=== PATIENT | female | born 1930 | race Two or more races ===

== ENCOUNTER 2018-04-07 17:05 | Inpatient (IN) | payer MEDICARE, MEDICAID ==
[2018-04-07 17:48] LABS: % BASOPHILS 0.4 % (0.0-2.0); % EOSINOPHILS 0.4 % (0.0-5.0); % LYMPHOCYTES 13.5 % (20.0-50.0); % MONOCYTES 8.9 % (2.0-10.0); % NEUTROPHILS 76.8 % (40.0-80.0); HEMATOCRIT 36.2 % (41.0-60); HEMOGLOBIN 11.9 gm/dL (12-16); LYMPHOCYTE ABSOLUTE 0.8 Th/cmm (1.5-3.0); MEAN CELL VOLUME 94.5 fl (81-100); MEAN CORPUSCULAR HEMOGLOBIN 31.1 pg (27.0-31.0); MEAN CORPUSCULAR HGB CONC 32.9 pg (28.0-36.0); MEAN PLATELET VOLUME 7.8 fl; MONOCYTE ABSOLUTE 0.5 Th/cmm (0.3-1.0); NEUTROPHILE ABSOLUTE 4.3 Th/cmm (1.8-8.0); PLATELET COUNT 174 Th/cmm (150-400); RED BLOOD COUNT 3.83 Mil/cmm (3.80-5.20); RED CELL DISTRIBUTION WIDTH 14.1 % (11.5-20.0); WHITE BLOOD COUNT 5.6 Th/cmm (4.8-10.8)
[2018-04-07] MEDS ORDERED: Sodium Chloride 0.45% 500 ML IV ONE (17:57)
[2018-04-07 18:03] LABS: ALB/GLOB RATIO 0.9 (1.0-1.8); ALBUMIN 3.1 gm/dL (3.7-5.3); ALKALINE PHOSPHATASE 47 U/L (34-104); BILIRUBIN,TOTAL 0.6 mg/dL (0.3-1.0); BUN - UREA NITROGEN 21 mg/dL (7-25); CALCIUM SERUM 8.9 mg/dL (8.6-10.3); CARBON DIOXIDE 25.7 mEq/L (21.0-31.0); CHLORIDE 102 mEq/L (98-107); CREATININE - SERUM 0.7 mg/dL (0.6-1.2); GLUCOSE 177 mg/dL (70-105); POTASSIUM SERUM 3.7 mEq/L (3.5-5.1); SGOT 86 U/L (13-39); SGPT/ALT 50 U/L (7-52); SODIUM SERUM 136 mEq/L (136-145); TOTAL PROTEIN,SERUM 6.5 gm/dL (6.0-8.3)
[2018-04-07 18:05] LABS: INR 1.09 (0.5-1.4); PROTHROMBIN TIME (TEST) 11.4 SECONDS (9.5-11.5)
--- NOTE | 2018-04-07 18:06 | ED Physician Chart ---
ED Chief Complaint/HPI - Patient Information Date Seen:: 04/07/18 Time Seen:: 17:34 Chief Complaint:: WEAKNESS History of Present Illness:: THIS IS AN 87 YO FEMALE WHO WAS BIB EMS FROM HOME WITH A HISTORY OF WEAKNESS, POOR INTAKE AND CONFUSING. SHE HAS HAD FEVER AND NOT ABLE TO WALK LATELY. SHE HAS A HISTORY OF DIABETES, PERIANAL CANCER, OVARY CA AND HYPERTENSION. Allergies:: Allergies Allergy/AdvReac Type Severity Reaction Status Date / Time No Known Allergies Allergy Verified 04/07/18 17:48 Vitals:: Vital Signs - 8 hr 04/07/18 17:49 Temp 99.8 F HR 89 RR 22 BP 135/58 O2 Sat % 98 Historian:: Family Member Review:: Nurse's Note Reviewed ED Review of Systems - Review of Systems General/Constitutional: Other (THIS PATIENT IS UNABLE TO GIVE A REVIEW OF SYSTEMS.) ED Past Medical History - Past Medical History Obtainable: Yes Past Medical History: HTN, DM, Dementia, Other (OVARIAN CA, DAVIDE-ANAL CA.) Family History: None Social History: Non Smoker, No Alcohol, No Drug Use, Surgical History: other (OVARIAN SURGERY) ED Physical Exam - Physical Examination General/Constitutional: Awake, Well-developed, well-nourished, Alert, No distress, GCS 15, Non-toxic appearing, Ambulatory Other Gen/Cons comments:: THE PATIENT IS CONFUSED AND TALKING OUT OF HER HEAD CONSTANTLY. Head: Atraumatic Eyes: Lids, conjuctiva normal, PERRL, EOMI Skin: Nl inspection, No rash, No skin lesions, No ecchymosis, Well hydrated, No lymphadenopathy ENMT: External ears, nose nl, Nasal exam nl, Lips, teeth, gums nl Neck: Nontender, Full ROM w/o pain, No JVD, No nuchal rigidity, No bruit, No mass, No stridor Respiratory: Nl effort/Exclusion, Clear to Auscultation, No Wheeze/Rhonchi/Rales Cardio Vascular: RRR, No murmur, gallop, rubs, NL S1 S2 GI: No tenderness/rebounding/guarding, No organomegaly, No hernia (VENTRAL HERNIA NOTED), Normal BS's, Nondistended, No mass/bruits, No McBurney tenderness : No CVA tenderness Extremities: No tenderness or effusion, Full ROM, normal strength in all extremities (MUSCLE WASTING OF ALL FOUR EXTREMITIES.), No edema, Normal digits & nails Neuro/Psych: Alert/oriented, DTR's symmetric, Normal sensory exam, Normal motor strength, Judgement/insight normal, Mood normal, Normal gait, No focal deficits Misc: Normal back, No paraspinal tenderness ED Labs/Radiology/EKG Results - Lab Results Results: Laboratory Tests 04/07/18 17:39 WBC 5.6 RBC 3.83 Hgb 11.9 L Hct 36.2 L MCV 94.5 MCH 31.1 H MCHC Differential 32.9 RDW 14.1 Plt Count 174 MPV 7.8 Neutrophils % 76.8 Lymphocytes % 13.5 L Monocytes % 8.9 Eosinophils % 0.4 Basophils % 0.4 - Radiology Results Results: CHEST X-RAY = NAD - EKG Interpretations EKG Time:: 17:27 Rate & Rhythm: 77, SINUS Sumrall: LEFT AXIS Intervals: NO ECTOPY ED Assessment - Assessment General Assessment: MENTAL DISORDER FOR PEDRO PSYCH ED Septic Shock - . Is Septic Shock (SBP<90, OR Lactate>4 mmol\L) present?: No - <6hrs of presentation: Vital Signs: Vital Signs - 8 hr 04/07/18 17:49 Temp 99.8 F HR 89 RR 22 BP 135/58 O2 Sat % 98 ED Reassessment (Disposition) - Reassessment Reassessment Condition:: Unchanged - Diagnosis Diagnosis:: PSYCHOSIS HYPERTENSION - Patient Disposition Discharge/Transfer:: Acute Care w/in this hosp Admitting Medical Physician:: Sara Bhatia Admitting Psych Physician:: Melissa Santiago Condition at Disposition:: Unchanged ED Discharge Plan - Patient Disposition Admit/Discharge/Transfer: Acute Care w/in this hosp Condition at Disposition: Unchanged
[2018-04-07 20:17] VITALS: BP 148/61
[2018-04-07] MEDS ORDERED: Maalox 30 mL Cup PO PRN (20:20)
[2018-04-07] MEDS ORDERED: Magnesium Hydroxide (MOM) 30 mL UDC PO PRN (20:20)
[2018-04-07] MEDS ORDERED: Hydrocodone/APAP 5mg/325mg Tab PO PRN (20:22)
[2018-04-07] MEDS ORDERED: Non-Formulary Item 1 EA (Donepezil Hcl [Donepezil Hcl Odt] 5 MG) PO SCH (21:00)
[2018-04-07] MEDS: Dicyclomine 10 mg Cap PO SCH (21:30)
[2018-04-08] MEDS: Pantoprazole 40 mg EC Tab PO SCH (06:43)
--- NOTE | 2018-04-08 07:46 | Diagnostic Imaging Report ---
CHEST X-RAY: AP view INDICATION: pain COMPARISON: None FINDINGS: Suboptimal lung volumes are seen with increased left basal lung markings. No focal consolidation or effusions. Cardiomegaly is noted with atherosclerosis. Degenerative changes of the spine are noted. IMPRESSION: Suboptimal lung volumes with increased left basal lung markings which may be due to subsegmental atelectasis or scarring. No focal consolidation identified. Cardiomegaly and atherosclerotic vascular disease.
[2018-04-08] MEDS ORDERED: FLUTICASONE PROPIONATE 50 MCG IH SCH (09:00)
[2018-04-08] MEDS: HYDROCORTISONE 2.5% RC SCH (10:27)
[2018-04-08] MEDS: Dicyclomine 10 mg Cap PO SCH ×3 (10:27→21:05)
[2018-04-08] MEDS: Calcium Carb/Vit D 500 mg/200 U Tab PO SCH (10:27)
[2018-04-08] MEDS: Atorvastatin Calcium 10 MG TAB PO SCH (10:27)
[2018-04-08] MEDS: Multivitamin Tab PO SCH (10:28)
[2018-04-08] MEDS: VERAPAMIL HCL 180 MG PO SCH (10:29)
--- NOTE | 2018-04-08 20:39 | History and Physical ---
History of Present Illness - HPI Chief Complaint: CONFUSION HPI: THIS IS AN 87 YO FEMALE FROM HOME WITH A HISTORY OF WEAKNESS, POOR INTAKE AND INCREASE CONFUSION. Vital Signs: Last Vital Signs Temp 97.6 F 04/08/18 20:14 Pulse 76 04/08/18 20:14 Resp 19 04/08/18 20:14 BP 129/49 04/08/18 20:14 Pulse Ox 97 04/08/18 20:14 Past Medical History Other History: DIABETES, PERIANAL CANCER, OVARY CA AND HYPERTENSION Family Medical History - Family Member mother History Unknown: Yes Ethnicity: Unknown Living Status: Unknown Social History Smoke: No Alcohol: None Drugs: None Lives: With Family - Medications Home Medications: Home Medication Medication Instructions Recorded Type Alendronate Sodium 70 mg PO Q7D 04/07/18 History Atorvastatin Calcium [Lipitor] 20 mg PO DAILY 04/07/18 History Calcium Carbonate/Vitamin D3 1 each PO DAILY 04/07/18 History [[place] 500+D Tablet] Cyanocobalamin (Vitamin B-12) 1,000 mcg SL DAILY 04/07/18 History [Vitamin B-12] Dicyclomine [Bentyl 10 Mg Cap*] 10 mg PO TID 04/07/18 History Docusate Sodium [Dok] 500 mg PO DAILY 04/07/18 History Donepezil HCl [Donepezil HCl Odt] 5 mg PO HS 04/07/18 History Fluticasone Propionate [Flovent 50 mcg IH DAILY 04/07/18 History Diskus] Glimepiride 1 mg PO DAILY 04/07/18 History Hydrocodone/APAP 5mg/325mg [Penrose 1 tab PO QID PRN 04/07/18 History 5mg/325mg] Hydrocortisone 2.5% Rectal Crm 1 appl RC DAILY 04/07/18 History [Proctozone-HC] Ibuprofen 400 mg PO QID 04/07/18 History Ketotifen 0.025% Ophth Soln 1 drop EACH EYE DAILY 04/07/18 History [Zaditor 0.025% Ophth Soln] Loperamide HCl [Imodium A-D] 2 mg PO TID PRN 04/07/18 History Loratadine 10 mg PO DAILY 04/07/18 History Meclizine [Antivert*] 25 mg PO PRN PRN 04/07/18 History Memantine HCl [Namenda Xr] 21 mg PO DAILY 04/07/18 History Omeprazole 20 mg PO DAILY 04/07/18 History Ondansetron [Zofran ODT] 4 mg PO PRN PRN 04/07/18 History Oxybutynin Chloride [Ditropan*] 5 mg PO DAILY 04/07/18 History QUEtiapine Fumarate [SEROquel] 25 mg PO DAILY 04/07/18 History Sertraline [Zoloft] 25 mg PO DAILY 04/07/18 History Tramadol HCl [Ultram] 50 mg PO BID 04/07/18 History Verapamil HCl [Verapamil ER] 180 mg PO DAILY 04/07/18 History - Allergies Allergies/Adverse Reactions: Allergies Allergy/AdvReac Type Severity Reaction Status Date / Time No Known Allergies Allergy Verified 04/07/18 17:48 Review of Systems - Review of Systems Constitutional: Report: Weakness Eyes: Report: No Significant ENT: Report: No Significant Respiratory: Report: No Significant Cardiovascular: Report: No Significant Neurological: Report: No Significant Physical Exam - Physical Exam HEENT: Report: Ears Nose Throat within normal limits Neck: Report: Within normal limits Cardiovascular Systems: Report: +s1/s2 noted, Regular, Rate and Rhythm Respiratory: Report: Breath Sounds are within normal limits Abdomen: Report: Non-tender to palpation Skin: Report: Warm, Dry - Lab Results All Lab Results last 24 hours: Microbiology 04/07/18 17:40 - Preliminary Blood NO GROWTH AFTER 24 HOURS 04/07/18 17:40 - Preliminary Blood NO GROWTH AFTER 24 HOURS - Assessment Assessment: Current Active Problems Problem Status Onset INCREASED WEAKNESS AND CONFUSION Acute DIABETES HX OF PERIANAL CANCER HX OF OVARY CA HYPERTENSION. - Plan Plan: FALL PRECAUTION CONTINUE THE REST OF THE ORDERS
--- NOTE | 2018-04-09 00:54 | Psychosocial Evaluation ---
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 The patient is taking Aricept, Namenda, Zoloft. PAST MEDICAL HISTORY: The patient has history of what seems to be hypertension and diabetes mellitus. She also has bilateral edema of the leg. SOCIAL HISTORY: The patient lives with her family. No known alcohol or drug use. No other information known at this time. ALLERGIES: No known allergies. MENTAL STATUS EXAMINATION: The patient appears her stated age. Anxious. Sad affect. In a depressed mood. Disorganized thoughts. Taking off her clothes. Thought processes are with poverty of speech. The patient is confused, unable to assess her orientation or memory because of her confusion and she seems to be paranoid. 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 TREATMENT PLAN: We will monitor the patient's behavior and condition closely. Also, we will increase Seroquel to 25 mg twice a day. We will monitor behavior and work on discharge plans. ESTIMATED LENGTH OF STAY: 5-7 days. THE PATIENT'S STRENGTHS AND WEAKNESSES: The patient's strengths is she has supportive family. Weakness is her confusion. AFTER DISCHARGE PLAN: Outpatient treatment and followup will continue as an outpatient. CRITERIA FOR DISCHARGE: Stabilize psychotropic medications and better impulse control. JOB# [id number]
--- NOTE | 2018-04-09 03:23 | Psychosocial Evaluation ---
DATE OF SERVICE: 04/08/2018 PSYCHIATRIC INITIAL EVALUATION AND MENTAL STATUS EXAM AGE: 87. SEX: Female. PHYSICIAN: Dr. Santiago. CHIEF COMPLAINT: [id number] hold for grave disability. HISTORY OF PRESENT ILLNESS: The patient is an 87-year-old female with history of what seems to be dementia with psychosis as well as depression. The patient was brought into the hospital by her family because of increased agitation and inability to care for her. The patient has been anxious and angry and in irritable mood. She also has not been able to follow any of her judgment directions. In the Emergency Room, the patient was irritable and she was agitated and for redirection and the patient was given Ativan to calm her down. Chart reviewed and patient interviewed and discussed the patient's condition with the staff and I talked to the patient in Persian language which I speak. The patient is originally from [place]. She has been rambling and has been confused and she was trying to answer my questions, but incoherently. She recognized her name, but she did not know how many children she has or where she is at. She kept to take off her hospital gown while I was talking to her. She was restless and severely confused. PAST PSYCHIATRIC HISTORY: The patient has DICTATION ENDS HERE JOB# [id number]
[2018-04-09] MEDS: Pantoprazole 40 mg EC Tab PO SCH (06:36)
--- NOTE | 2018-04-09 09:31 | General Progress Note ---
Subjective - Review of Systems Events since last encounter: patient awake alert in no distress Objective - Results Result Diagrams: 04/07/18 17:39 04/07/18 17:39 Recent Labs: Laboratory Last Values WBC 5.6 Th/cmm (4.8-10.8) 04/07/18 17:39 RBC 3.83 Mil/cmm (3.80-5.20) 04/07/18 17:39 Hgb 11.9 gm/dL (12-16) L 04/07/18 17:39 Hct 36.2 % (41.0-60) L 04/07/18 17:39 MCV 94.5 fl (81-100) 04/07/18 17:39 MCH 31.1 pg (27.0-31.0) H 04/07/18 17:39 MCHC Differential 32.9 pg (28.0-36.0) 04/07/18 17:39 RDW 14.1 % (11.5-20.0) 04/07/18 17:39 Plt Count 174 Th/cmm (150-400) 04/07/18 17:39 MPV 7.8 fl 04/07/18 17:39 Neutrophils % 76.8 % (40.0-80.0) 04/07/18 17:39 Lymphocytes % 13.5 % (20.0-50.0) L 04/07/18 17:39 Monocytes % 8.9 % (2.0-10.0) 04/07/18 17:39 Eosinophils % 0.4 % (0.0-5.0) 04/07/18 17:39 Basophils % 0.4 % (0.0-2.0) 04/07/18 17:39 PT 11.4 SECONDS (9.5-11.5) 04/07/18 17:39 INR 1.09 (0.5-1.4) 04/07/18 17:39 PTT (Actin FS) 29.9 SECONDS (26.0-38.0) 04/07/18 17:39 Sodium 136 mEq/L (136-145) 04/07/18 17:39 Potassium 3.7 mEq/L (3.5-5.1) 04/07/18 17:39 Chloride 102 mEq/L (98-107) 04/07/18 17:39 Carbon Dioxide 25.7 mEq/L (21.0-31.0) 04/07/18 17:39 Anion Gap 12.0 (7.0-16.0) 04/07/18 17:39 BUN 21 mg/dL (7-25) 04/07/18 17:39 Creatinine 0.7 mg/dL (0.6-1.2) 04/07/18 17:39 Est GFR ( Amer) TNP 04/07/18 17:39 Est GFR (Non-Af Amer) TNP 04/07/18 17:39 BUN/Creatinine Ratio 30.0 04/07/18 17:39 Glucose 177 mg/dL (70-105) H 04/07/18 17:39 Calcium 8.9 mg/dL (8.6-10.3) 04/07/18 17:39 Total Bilirubin 0.6 mg/dL (0.3-1.0) 04/07/18 17:39 AST 86 U/L (13-39) H 04/07/18 17:39 ALT 50 U/L (7-52) 04/07/18 17:39 Alkaline Phosphatase 47 U/L (34-104) 04/07/18 17:39 Troponin I 0.02 ng/mL (0.01-0.05) 04/07/18 17:39 Total Protein 6.5 gm/dL (6.0-8.3) 04/07/18 17:39 Albumin 3.1 gm/dL (3.7-5.3) L 04/07/18 17:39 Globulin 3.4 gm/dL 04/07/18 17:39 Albumin/Globulin Ratio 0.9 (1.0-1.8) L 04/07/18 17:39 TSH 1.58 uIU/ml (0.34-5.60) 04/07/18 17:39 - Physical Exam Vitals and I&O: Vital Signs Temp 96.3 F 04/09/18 05:33 Pulse 74 04/09/18 05:33 Resp 18 04/09/18 05:33 BP 141/83 04/09/18 05:33 Pulse Ox 99 04/09/18 05:33 Intake & Output 04/08/18 04/09/18 04/09/18 18:59 06:59 18:59 Intake Total 300 Balance 300 Intake: Oral 300 Other: # Voids 1 # Bowel Movements 1 Active Medications: Current Medications Acetaminophen (Tylenol) 650 mg PO Q4H PRN PRN Reason: Mild Pain / Temp above 100 Stop: 06/06/18 20:19 Acetaminophen/Hydrocodone Bitart (Minerva 5mg/325mg) 1 tab PO QID PRN PRN Reason: Pain (Severe) Stop: 06/06/18 20:21 Al Hydrox/Mg Hydrox/Simethicone (Maalox) 30 ml PO Q4H PRN PRN Reason: GI DISTRESS Stop: 06/06/18 20:19 Alendronate Sodium (Fosamax) 70 mg PO Q7D [facility] Stop: 06/10/18 06:29 Atorvastatin Calcium (Lipitor) 20 mg PO DAILY JEANETTE Stop: 06/07/18 08:59 Last Admin: 04/08/18 10:27 Dose: Not Given Calcium/Vitamin D (Oscal W/Vitamin D) 1 tab PO DAILY JEANETTE Stop: 06/07/18 08:59 Last Admin: 04/08/18 10:27 Dose: Not Given Cyanocobalamin (Vitamin B12) 1,000 mcg PO DAILY JEANETTE Stop: 06/07/18 08:59 Last Admin: 04/08/18 10:27 Dose: Not Given Dicyclomine HCl (Bentyl) 10 mg PO TID JEAENTTE Stop: 06/06/18 21:59 Last Admin: 04/08/18 21:05 Dose: 10 mg Docusate Sodium (Colace) 500 mg PO DAILY JEANETTE Stop: 06/07/18 08:59 Last Admin: 04/08/18 10:27 Dose: Not Given Donepezil HCl (Aricept) 5 mg PO HS [facility] Stop: 06/07/18 20:59 Last Admin: 04/08/18 21:05 Dose: 5 mg Glimepiride (Amaryl) 1 mg PO QDAC JEANETTE Stop: 06/07/18 07:29 Last Admin: 04/09/18 06:36 Dose: Not Given Hydrocortisone (Proctozone-Hc) 1 appl RC DAILY [facility] Stop: 06/07/18 08:59 Last Admin: 04/08/18 10:27 Dose: Not Given Ibuprofen (Motrin) 400 mg PO QID JEANETTE Stop: 06/06/18 20:59 Last Admin: 04/08/18 21:05 Dose: 400 mg Ketotifen Fumarate (Zaditor 0.025% Ophth Soln) 1 drop EACH EYE DAILY [facility] Stop: 06/07/18 08:59 Last Admin: 04/08/18 10:27 Dose: Not Given Loperamide HCl (Imodium) 2 mg PO TID PRN PRN Reason: Diarrhea Stop: 06/06/18 20:21 Loratadine (Claritin) 10 mg PO DAILY [facility] Stop: 06/07/18 08:59 Last Admin: 04/08/18 10:28 Dose: Not Given Lorazepam (Ativan) 0.5 mg PO Q4H PRN; Protocol PRN Reason: Anxiety/agitation Stop: 06/06/18 20:19 Magnesium Hydroxide (Milk Of Magnesia) 30 ml PO HS PRN PRN Reason: Constipation Meclizine HCl (Antivert) 25 mg PO Q8H PRN PRN Reason: Dizziness Stop: 06/06/18 20:21 Memantine (Namenda) 5 mg PO TID [facility] Stop: 06/07/18 08:59 Last Admin: 04/08/18 21:05 Dose: 5 mg Miscellaneous (Fluticasone Propionate [Flovent Diskus]) 50 mcg IH DAILY [facility] Stop: 06/07/18 08:59 Multivitamins/Vitamin C (Theragran) 1 tab PO DAILY [facility] Stop: 06/07/18 08:59 Last Admin: 04/08/18 10:28 Dose: Not Given Ondansetron HCl (Zofran Odt) 4 mg PO Q8H PRN PRN Reason: Nausea / Vomiting Stop: 06/06/18 20:21 Oxybutynin Chloride (Ditropan) 5 mg PO DAILY [facility] Stop: 06/07/18 08:59 Last Admin: 04/08/18 10:28 Dose: Not Given Pantoprazole Sodium (Protonix) 40 mg PO QDAC [facility] Stop: 06/07/18 07:29 Last Admin: 04/09/18 06:36 Dose: Not Given Quetiapine Fumarate (Seroquel) 25 mg PO TID [facility]; Protocol Stop: 06/08/18 08:59 Sertraline HCl (Zoloft) 25 mg PO DAILY [facility]; Protocol Stop: 06/07/18 08:59 Last Admin: 04/08/18 10:28 Dose: Not Given Tramadol HCl (Ultram) 50 mg PO BID JEANETTE Stop: 06/07/18 08:59 Last Admin: 04/08/18 16:29 Dose: Not Given Verapamil HCl (Isoptin Sr) 180 mg PO DAILY JEANETTE Stop: 06/07/18 08:59 Last Admin: 04/08/18 10:29 Dose: Not Given Zolpidem Tartrate (Ambien) 5 mg PO HS PRN PRN Reason: Insomnia Stop: 06/06/18 20:19 Assessment/Plan - Problem List Patient Problems: All Active Problems INCREASED WEAKNESS AND CONFUSION (Acute) - Assessment Assessment: Current Active Problems Problem Status Onset INCREASED WEAKNESS AND CONFUSION Acute DIABETES HX OF PERIANAL CANCER HX OF OVARY CA HYPERTENSION. - Plan Plan: FALL PRECAUTION CONTINUE THE REST OF THE ORDERS Nutritional Asmnt/Malnutr-PDOC - Dietary Evaluation Malnutrition Findings (Please click <Entered> for more info): Nutritional Asmnt/Malnutrition Start: 04/08/18 15: 11 Text: Status: Complete Freq: Protocol: Document 04/08/18 15:11 [email or web address] (Rec: 04/08/18 15:28 [email or web address] [id number]) Nutritional Asmnt/Malnutrition Patient General Information Nutritional Screening High Risk Diagnosis psychosis Pertinent Medical Hx/Surgical Hx DM, perianal cancer, ovary CA and HTN Subjective Information Pt seen lying in bed at time of visit, very confused. Per REGISTRATION SPECIALIST, Pt consumed 50% of breakfast this morning. Rex Sanabria noted. Current Diet Order/ Nutrition Support CCHO-60gm Pertinent Medications oscal w/vit D, Vit B12, colace , theragran, protonix, seroquel Pertinent Labs 7/2 glucose 177, AST 86 Nutritional Hx/Data Height 1.63 m Height (Calculated Centimeters) 162.6 Current Weight (lbs) 83.915 kg Weight (Calculated Kilograms) 83.9 Weight (Calculated Grams) 90772.6 [place] Body Weight 120 Body Mass Index (BMI) 31.7 Weight Status Obese GI Symptoms GI Symptoms None Last BM not indicated Difficult in: None Skin Integrity/Comment: intact Current %PO Fair (50-74%) Estimated Nutritional Goals BEE in Kcals: Adj wt of IBW Calories/Kcals/Kg 25-30 Kcals Calculated [id number] Protein: Adj wt of IBW Protein g/k-1.2 Protein Calculated 62-74 Fluid: ml 1550-1860ml (1ml/kcal) Nutritional Problem 1. Problem Problem altered nutrition related labs Etiology hx of DM Signs/Symptoms: glucose 177 Malnutrition Alert Is there a minimum of two criteria No selected? Query Text:Check all the applicable criteria. A minimum of two criteria are recommended for diagnosis of either severe or non-severe malnutrition. Malnutrition Related to Morbid Obesity Malnutrition related to morbid obesity No Intervention/Recommendation Comments 1. Continue with CCHO-60gm diet as ordered. Assist pt with meals as needed. 2. Monitor PO intake, wt, labs and skin integrity 3. F/U as moderate risk in 3-5 days, 04/11-04/13 Expected Outcomes/Goals Expected Outcomes/Goals 1. PO intake to meet at least 75% of nutritional needs. 2. Wt stability, skin to remain intact, labs to approach WNL.
[2018-04-09] MEDS: HYDROCORTISONE 2.5% RC SCH (10:52)
[2018-04-09] MEDS: Dicyclomine 10 mg Cap PO SCH ×3 (10:53→20:05)
[2018-04-09] MEDS: Calcium Carb/Vit D 500 mg/200 U Tab PO SCH (10:53)
[2018-04-09] MEDS: Atorvastatin Calcium 10 MG TAB PO SCH (10:53)
[2018-04-09] MEDS: Multivitamin Tab PO SCH (11:09)
[2018-04-09] MEDS: VERAPAMIL HCL 180 MG PO SCH (11:11)
[2018-04-09 15:17] LABS: URINE MICROSCOPIC INDICATED? YES; URINE SOURCE CATH
[2018-04-09 15:18] LABS: URINE BILIRUBIN NEGATIVE (NEGATIVE); URINE BLOOD MODERATE (NEGATIVE); URINE GLUCOSE (UA) NEGATIVE (NEGATIVE); URINE KETONE NEGATIVE (NEGATIVE); URINE LEUKOCYTE ESTERASE LARGE (NEGATIVE); URINE NITRATE POSITIVE (NEGATIVE); URINE PROTEIN 100 mg/dL (NEGATIVE)
[2018-04-09 15:20] LABS: URINE COLOR YELLOW
[2018-04-09 15:21] LABS: URINE CLARITY CLOUDY (CLEAR)
[2018-04-09 15:24] LABS: URINE BACTERIA MANY /hpf (NONE SEEN); URINE EPITHELIAL CELLS MODERATE /lpf (FEW); URINE WBC >100 /hpf (0-5)
--- NOTE | 2018-04-09 18:10 | History & Physical ---
ADMIT DATE: 04/07/2018 HISTORY OF PRESENT ILLNESS: The patient is an 87-year-old female who came from home with history of severe weakness, poor intake and increasing confusion. The patient is also known to have history of diabetes, perianal cancer and ovarian CA and hypertension. The patient was seen in the Emergency Room and the patient was evaluated and patient was admitted for the confusion. PHYSICAL EXAMINATION: HEAD: Normal. ENT: Normal. NECK: Supple, nontender. LUNGS: Clear. CARDIOVASCULAR SYSTEM: S1, S2 heard. ABDOMEN: Soft. Bowel sounds are heard. CENTRAL NERVOUS SYSTEM: Decreased sensorium. DIAGNOSES: Acute psychosis, diabetes, history of perianal cancer, history of ovarian CA, history of hypertension was made. PLAN: I did speak with the ER doctor, Dr. Marlon Miguel and the patient was admitted for the above problems. I will follow along with Dr. Santiago. JOB# [id number]
--- NOTE | 2018-04-10 01:02 | Progress Notes ---
DATE: SUBJECTIVE: Chart reviewed and the patient interviewed. Also discussed the patient's condition with the staff and reviewed records and labs. The patient is still confused. The patient also is still trying to take off her hospital gown. She also is still anxious and depressed and easily agitated. She also still unable to follow directions or to carry on coherent conversation. On the other hand, the patient started to take Seroquel with no side effect of Seroquel. ASSESSMENT: The patient is still confused and agitated. TREATMENT PLAN: Continue to monitor her behavior and her condition closely. Also, we will increase Seroquel to 25 mg 3 times a day. Also, continue to work on her poor impulse control and her confusion and continue to follow up. JOB# [id number]
[2018-04-10] MEDS: Pantoprazole 40 mg EC Tab PO SCH (06:43)
[2018-04-10] MEDS ORDERED: Probiotic Screen MC PRN (08:15)
[2018-04-10] MEDS: Lactobacillus Rhamnosus GG 15 Billion CFU CAP.SPRINK PO SCH (08:55)
[2018-04-10] MEDS: Dicyclomine 10 mg Cap PO SCH ×3 (08:57→20:48)
[2018-04-10] MEDS: Multivitamin Tab PO SCH (08:58)
[2018-04-10] MEDS: HYDROCORTISONE 2.5% RC SCH (09:00)
[2018-04-10] MEDS: Calcium Carb/Vit D 500 mg/200 U Tab PO SCH (09:01)
[2018-04-10] MEDS: Atorvastatin Calcium 10 MG TAB PO SCH (09:01)
[2018-04-10] MEDS: VERAPAMIL HCL 180 MG PO SCH (10:54)
--- NOTE | 2018-04-10 16:47 | General Progress Note ---
Subjective - Review of Systems Subjective: pt. has increasing muscle weakness, and is confused Objective - Results Result Diagrams: 04/07/18 17:39 04/07/18 17:39 Recent Labs: Laboratory Last Values WBC 5.6 Th/cmm (4.8-10.8) 04/07/18 17:39 RBC 3.83 Mil/cmm (3.80-5.20) 04/07/18 17:39 Hgb 11.9 gm/dL (12-16) L 04/07/18 17:39 Hct 36.2 % (41.0-60) L 04/07/18 17:39 MCV 94.5 fl (81-100) 04/07/18 17:39 MCH 31.1 pg (27.0-31.0) H 04/07/18 17:39 MCHC Differential 32.9 pg (28.0-36.0) 04/07/18 17:39 RDW 14.1 % (11.5-20.0) 04/07/18 17:39 Plt Count 174 Th/cmm (150-400) 04/07/18 17:39 MPV 7.8 fl 04/07/18 17:39 Neutrophils % 76.8 % (40.0-80.0) 04/07/18 17:39 Lymphocytes % 13.5 % (20.0-50.0) L 04/07/18 17:39 Monocytes % 8.9 % (2.0-10.0) 04/07/18 17:39 Eosinophils % 0.4 % (0.0-5.0) 04/07/18 17:39 Basophils % 0.4 % (0.0-2.0) 04/07/18 17:39 PT 11.4 SECONDS (9.5-11.5) 04/07/18 17:39 INR 1.09 (0.5-1.4) 04/07/18 17:39 PTT (Actin FS) 29.9 SECONDS (26.0-38.0) 04/07/18 17:39 Sodium 136 mEq/L (136-145) 04/07/18 17:39 Potassium 3.7 mEq/L (3.5-5.1) 04/07/18 17:39 Chloride 102 mEq/L (98-107) 04/07/18 17:39 Carbon Dioxide 25.7 mEq/L (21.0-31.0) 04/07/18 17:39 Anion Gap 12.0 (7.0-16.0) 04/07/18 17:39 BUN 21 mg/dL (7-25) 04/07/18 17:39 Creatinine 0.7 mg/dL (0.6-1.2) 04/07/18 17:39 Est GFR ( Amer) TNP 04/07/18 17:39 Est GFR (Non-Af Amer) TNP 04/07/18 17:39 BUN/Creatinine Ratio 30.0 04/07/18 17:39 Glucose 177 mg/dL (70-105) H 04/07/18 17:39 Calcium 8.9 mg/dL (8.6-10.3) 04/07/18 17:39 Total Bilirubin 0.6 mg/dL (0.3-1.0) 04/07/18 17:39 AST 86 U/L (13-39) H 04/07/18 17:39 ALT 50 U/L (7-52) 04/07/18 17:39 Alkaline Phosphatase 47 U/L (34-104) 04/07/18 17:39 Troponin I 0.02 ng/mL (0.01-0.05) 04/07/18 17:39 Total Protein 6.5 gm/dL (6.0-8.3) 04/07/18 17:39 Albumin 3.1 gm/dL (3.7-5.3) L 04/07/18 17:39 Globulin 3.4 gm/dL 04/07/18 17:39 Albumin/Globulin Ratio 0.9 (1.0-1.8) L 04/07/18 17:39 TSH 1.58 uIU/ml (0.34-5.60) 04/07/18 17:39 Urine Source CATH 04/09/18 14:50 Urine Color YELLOW 04/09/18 14:50 Urine Clarity CLOUDY (CLEAR) H 04/09/18 14:50 Urine pH 6.0 (4.6 - 8.0) 04/09/18 14:50 Ur Specific [place] 1.015 (1.005-1.030) 04/09/18 14:50 Urine Protein 100 mg/dL (NEGATIVE) H 04/09/18 14:50 Urine Glucose (UA) NEGATIVE mg/dL (NEGATIVE) 04/09/18 14:50 Urine Ketones NEGATIVE mg/dL (NEGATIVE) 04/09/18 14:50 Urine Blood MODERATE (NEGATIVE) H 04/09/18 14:50 Urine Nitrate POSITIVE (NEGATIVE) H 04/09/18 14:50 Urine Bilirubin NEGATIVE (NEGATIVE) 04/09/18 14:50 Urine Urobilinogen 1.0 E.U./dL (0.2 - 1.0) 04/09/18 14:50 Ur Leukocyte Esterase LARGE (NEGATIVE) H 04/09/18 14:50 Urine RBC 5-10 /hpf (0-5) H 04/09/18 14:50 Urine WBC >100 /hpf (0-5) H 04/09/18 14:50 Ur Epithelial Cells MODERATE /lpf (FEW) 04/09/18 14:50 Urine Bacteria MANY /hpf (NONE SEEN) H 04/09/18 14:50 - Physical Exam Vitals and I&O: Vital Signs Temp 96.2 F 04/10/18 14:59 Pulse 88 04/10/18 14:59 Resp 18 04/10/18 14:59 BP 124/71 04/10/18 14:59 Pulse Ox 98 04/10/18 14:59 Intake & Output 04/09/18 04/10/18 04/10/18 18:59 06:59 18:59 Intake Total 120 Balance 120 Intake: Oral 120 Other: # Voids 2 # Bowel Movements 1 Active Medications: Current Medications Acetaminophen (Tylenol) 650 mg PO Q4H PRN PRN Reason: Mild Pain / Temp above 100 Stop: 06/06/18 20:19 Acetaminophen/Hydrocodone Bitart ([place] 5mg/325mg) 1 tab PO QID PRN PRN Reason: Pain (Severe) Stop: 06/06/18 20:21 Al Hydrox/Mg Hydrox/Simethicone (Maalox) 30 ml PO Q4H PRN PRN Reason: GI DISTRESS Stop: 06/06/18 20:19 Alendronate Sodium (Fosamax) 70 mg PO Q7D JEANETTE Stop: 06/10/18 06:29 Atorvastatin Calcium (Lipitor) 20 mg PO DAILY JEANETTE Stop: 06/07/18 08:59 Last Admin: 04/10/18 09:01 Dose: 20 mg Calcium/Vitamin D (Oscal W/Vitamin D) 1 tab PO DAILY JEANETTE Stop: 06/07/18 08:59 Last Admin: 04/10/18 09:01 Dose: 1 tab Cyanocobalamin (Vitamin B12) 1,000 mcg PO DAILY JEANETTE Stop: 06/07/18 08:59 Last Admin: 04/10/18 08:55 Dose: 1,000 mcg Dicyclomine HCl (Bentyl) 10 mg PO TID JEANETTE Stop: 06/06/18 21:59 Last Admin: 04/10/18 15:40 Dose: 10 mg Docusate Sodium (Colace) 500 mg PO DAILY JEANETTE Stop: 06/07/18 08:59 Last Admin: 04/10/18 08:58 Dose: Not Given Donepezil HCl (Aricept) 5 mg PO HS JEANETTE Stop: 06/07/18 20:59 Last Admin: 04/09/18 20:05 Dose: 5 mg Glimepiride (Amaryl) 1 mg PO QDAC JEANETTE Stop: 06/07/18 07:29 Last Admin: 04/10/18 06:43 Dose: 1 mg Hydrocortisone (Proctozone-Hc) 1 appl RC DAILY JEANETTE Stop: 06/07/18 08:59 Last Admin: 04/10/18 09:00 Dose: 1 appl Ibuprofen (Motrin) 400 mg PO QID JEANETTE Stop: 06/06/18 20:59 Last Admin: 04/10/18 15:37 Dose: Not Given Ketotifen Fumarate (Zaditor 0.025% Ophth Soln) 1 drop EACH EYE DAILY JEANETTE Stop: 06/07/18 08:59 Last Admin: 04/10/18 09:00 Dose: 1 drop Lactobacillus Rhamnosus (Culturelle 15b) 1 each PO DAILY JEANETTE Stop: 06/09/18 08:59 Last Admin: 04/10/18 08:55 Dose: 1 each Levofloxacin (Levaquin) 500 mg PO DAILY JEANETTE Stop: 06/08/18 17:39 Last Admin: 04/10/18 08:56 Dose: 500 mg Loperamide HCl (Imodium) 2 mg PO TID PRN PRN Reason: Diarrhea Stop: 06/06/18 20:21 Loratadine (Claritin) 10 mg PO DAILY JEANETTE Stop: 06/07/18 08:59 Last Admin: 04/10/18 09:06 Dose: 10 mg Lorazepam (Ativan) 0.5 mg PO Q4H PRN; Protocol PRN Reason: Anxiety/agitation Stop: 06/06/18 20:19 Magnesium Hydroxide (Milk Of Magnesia) 30 ml PO HS PRN PRN Reason: Constipation Meclizine HCl (Antivert) 25 mg PO Q8H PRN PRN Reason: Dizziness Stop: 06/06/18 20:21 Memantine (Namenda) 5 mg PO TID [facility] Stop: 06/07/18 08:59 Last Admin: 04/10/18 15:40 Dose: 5 mg Miscellaneous (Probiotic Screen) 1 ea MC PRN PRN PRN Reason: PROTOCOL Stop: 06/09/18 08:14 Multivitamins/Vitamin C (Theragran) 1 tab PO DAILY [facility] Stop: 06/07/18 08:59 Last Admin: 04/10/18 08:58 Dose: 1 tab Ondansetron HCl (Zofran Odt) 4 mg PO Q8H PRN PRN Reason: Nausea / Vomiting Stop: 06/06/18 20:21 Oxybutynin Chloride (Ditropan) 5 mg PO DAILY [facility] Stop: 06/07/18 08:59 Last Admin: 04/10/18 08:58 Dose: 5 mg Pantoprazole Sodium (Protonix) 40 mg PO QDAC [facility] Stop: 06/07/18 07:29 Last Admin: 04/10/18 06:43 Dose: 40 mg Quetiapine Fumarate (Seroquel) 25 mg PO TID [facility]; Protocol Stop: 06/08/18 08:59 Last Admin: 04/10/18 15:40 Dose: 25 mg Sertraline HCl (Zoloft) 25 mg PO DAILY [facility]; Protocol Stop: 06/07/18 08:59 Last Admin: 04/10/18 08:55 Dose: 25 mg Tramadol HCl (Ultram) 50 mg PO BID [facility] Stop: 06/07/18 08:59 Last Admin: 04/10/18 09:02 Dose: Not Given Verapamil HCl (Isoptin Sr) 180 mg PO DAILY [facility] Stop: 06/07/18 08:59 Last Admin: 04/10/18 10:54 Dose: Not Given Zolpidem Tartrate (Ambien) 5 mg PO HS PRN PRN Reason: Insomnia Stop: 06/06/18 20:19 General: Alert, No acute distress HEENT: PERRLA, EOMI Neck: Supple Cardiovascular: Normal S1, Normal S2 Abdomen: Bowel sounds Psych/Mental Status: Other (decreased sensorium) Assessment/Plan - Problem List Patient Problems: All Active Problems INCREASED WEAKNESS AND CONFUSION (Acute) - Assessment Assessment: Current Active Problems Problem Status Onset INCREASED WEAKNESS AND CONFUSION Acute DIABETES HX OF PERIANAL CANCER HX OF OVARY CA HYPERTENSION. - Plan Plan: FALL PRECAUTION CONTINUE THE REST OF THE ORDERS Nutritional Asmnt/Malnutr-PDOC - Dietary Evaluation Malnutrition Findings (Please click <Entered> for more info): Nutritional Asmnt/Malnutrition Start: 04/08/18 15: 11 Text: Status: Complete Freq: Protocol: Document 04/08/18 15:11 [email or web address] (Rec: 04/08/18 15:28 [email or web address]) Nutritional Asmnt/Malnutrition Patient General Information Nutritional Screening High Risk Diagnosis psychosis Pertinent Medical Hx/Surgical Hx DM, perianal cancer, ovary CA and HTN Subjective Information Pt seen lying in bed at time of visit, very confused. Per CHILD CARE WORKER, Pt consumed 50% of breakfast this morning. Rex Sanabria noted. Current Diet Order/ Nutrition Support CCHO-60gm Pertinent Medications oscal w/vit D, Vit B12, colace , theragran, protonix, seroquel Pertinent Labs 7/2 glucose 177, AST 86 Nutritional Hx/Data Height 1.63 m Height (Calculated Centimeters) 162.6 Current Weight (lbs) 83.915 kg Weight (Calculated Kilograms) 83.9 Weight (Calculated Grams) 54494.6 [place] Body Weight 120 Body Mass Index (BMI) 31.7 Weight Status Obese GI Symptoms GI Symptoms None Last BM not indicated Difficult in: None Skin Integrity/Comment: intact Current %PO Fair (50-74%) Estimated Nutritional Goals BEE in Kcals: Adj wt of IBW Calories/Kcals/Kg 25-30 Kcals Calculated 5464-2513 Protein: Adj wt of IBW Protein g/k-1.2 Protein Calculated 62-74 Fluid: ml 1550-1860ml (1ml/kcal) Nutritional Problem 1. Problem Problem altered nutrition related labs Etiology hx of DM Signs/Symptoms: glucose 177 Malnutrition Alert Is there a minimum of two criteria No selected? Query Text:Check all the applicable criteria. A minimum of two criteria are recommended for diagnosis of either severe or non-severe malnutrition. Malnutrition Related to Morbid Obesity Malnutrition related to morbid obesity No Intervention/Recommendation Comments 1. Continue with CCHO-60gm diet as ordered. Assist pt with meals as needed. 2. Monitor PO intake, wt, labs and skin integrity 3. F/U as moderate risk in 3-5 days, 04/11-04/13 Expected Outcomes/Goals Expected Outcomes/Goals 1. PO intake to meet at least 75% of nutritional needs. 2. Wt stability, skin to remain intact, labs to approach WNL.
--- NOTE | 2018-04-10 20:22 | Progress Notes ---
DATE: 04/10/2018 SUBJECTIVE: Chart reviewed and the patient interviewed. Also discussed the patient's condition with the staff and reviewed records and labs. The patient is still confused and she is still easily agitated. The patient also is still in irritable and angry mood because of confusion and also because of language barrier, but I cannot communicate with her and I speak the language. She is still isolative and withdrawn and interacting minimally with others. She also is still resisting care. Otherwise, the patient is compliant with taking her medicine according to the staff and needs prompt instructions to take it. ASSESSMENT: The patient is still confused and still unable to care for herself. TREATMENT PLAN: We will continue to monitor her behavior and her condition closely. Also, continue adjusting psychotropic medications. Also we will continue to work on irritability and continue to follow up. Also we will place the patient on 5250 for being self and for gravely disabled. JOB# [id number]
[2018-04-11] MEDS: Atorvastatin Calcium 10 MG TAB PO SCH (10:00)
[2018-04-11] MEDS: Lactobacillus Rhamnosus GG 15 Billion CFU CAP.SPRINK PO SCH (10:00)
[2018-04-11] MEDS: VERAPAMIL HCL 180 MG PO SCH (10:00)
[2018-04-11] MEDS: Multivitamin Tab PO SCH (10:00)
[2018-04-11] MEDS: Calcium Carb/Vit D 500 mg/200 U Tab PO SCH (10:00)
[2018-04-11] MEDS: HYDROCORTISONE 2.5% RC SCH (10:00)
[2018-04-11] MEDS: Dicyclomine 10 mg Cap PO SCH ×3 (10:00→21:20)
[2018-04-12] MEDS: Pantoprazole 40 mg EC Tab PO SCH (06:35)
[2018-04-12] MEDS: Atorvastatin Calcium 10 MG TAB PO SCH (09:31)
[2018-04-12] MEDS: Calcium Carb/Vit D 500 mg/200 U Tab PO SCH (09:31)
[2018-04-12] MEDS: Lactobacillus Rhamnosus GG 15 Billion CFU CAP.SPRINK PO SCH (09:33)
[2018-04-12] MEDS: Dicyclomine 10 mg Cap PO SCH ×2 (09:33→21:15)
[2018-04-12] MEDS: VERAPAMIL HCL 180 MG PO SCH (09:54)
[2018-04-12] MEDS: HYDROCORTISONE 2.5% RC SCH (14:32)
[2018-04-12] MEDS: Multivitamin Tab PO SCH (16:10)
--- NOTE | 2018-04-12 22:54 | Progress Notes ---
DATE: 04/11/2018 SUBJECTIVE: Chart reviewed and the patient interviewed. Also, discussed the patient's condition with the staff and reviewed records and labs. The patient is still isolative and is still withdrawn. The patient also is still confused and rambling and have difficulty following directions. When talking with the patient, the patient was able to answer some of my questions, especially that I speak the same language, but at the same time her answers are in a confused state. She also is still disheveled and is having poor appetite, unless her family are around where she feels more comfortable and she eats slightly better. Also, she is forgetful and she is unable to carry on coherent conversation. ASSESSMENT: The patient is still depressed and confused. TREATMENT PLAN: Continue to monitor her behavior and her condition closely. Also, continue adjusting psychotropic medications and working on behavioral modification and followup. JOB# [id number]
--- NOTE | 2018-04-13 01:51 | Progress Notes ---
DATE: 04/12/2018 This 87-year-old female with history of what seems to be dementia, psychosis, depression, brought in to the hospital by family due to increased agitation and inability to care for herself, anxious, angry, irritable. When I tried to talk to her, she just stares at me blankly. Dr. Santiago talking to her in Telugu, but she is rambling, confused, incoherent, mostly withdrawn, isolative, Dr. Santiago is seeing the patient over the past couple of days, confused, disoriented, history of dementia. Staff notes she slept fairly well. Good support from family, very confused. PLAN: We will continue to monitor. Given her ongoing symptoms, she is not safe for discharge. We will coordinate care with social work regarding safe discharge plan and good psychiatric followup. JOB# [id number]
--- NOTE | 2018-04-13 03:33 | Progress Notes ---
DATE: 04/12/2018 SUBJECTIVE: The patient was seen in her room. The patient is asleep, but easily arousable. The patient appears to be irritable and guarded and poor historian due to medical condition, but the patient appears to be in no acute distress. OBJECTIVE: VITAL SIGNS: Temperature 97.3, heart rate 70, blood pressure 130/80, respirations 19, 98% on room air. HEENT: Head is atraumatic and normocephalic. Eyes: Bilateral conjunctivae are clear. Bilateral pupils are equally round and reactive. NECK: Supple. No JVD. CARDIOVASCULAR: S1 and S2, without murmur. PULMONARY: Clear to auscultation. GASTROINTESTINAL: Soft and nontender without guarding. Positive bowel sounds. MUSCULOSKELETAL: No clubbing. No cyanosis noted. ASSESSMENT: 1. Dementia. 2. Osteoarthritis. 3. Osteoporosis. 4. Hyperlipidemia. 5. Diabetes. 6. Osteoarthritis. 7. History of gastroesophageal reflux disease. 8. Overactive bladder. 9. Hypertension. PLAN: We will keep the patient in inpatient senior mental health unit. We will follow up with a psychiatrist to monitor the patient's condition and behavior. Treatment plans were discussed with the patient's nurse. Treatment plans were discussed with Dr. Bhatia. JOB# [id number]
[2018-04-13] MEDS: Pantoprazole 40 mg EC Tab PO SCH (06:47)
[2018-04-13] MEDS: Atorvastatin Calcium 10 MG TAB PO SCH (09:33)
[2018-04-13] MEDS: Multivitamin Tab PO SCH (09:34)
[2018-04-13] MEDS: Lactobacillus Rhamnosus GG 15 Billion CFU CAP.SPRINK PO SCH (09:34)
[2018-04-13] MEDS: Dicyclomine 10 mg Cap PO SCH ×3 (09:35→21:14)
[2018-04-13] MEDS: Calcium Carb/Vit D 500 mg/200 U Tab PO SCH (09:35)
[2018-04-13] MEDS: HYDROCORTISONE 2.5% RC SCH (09:36)
[2018-04-13] MEDS: VERAPAMIL HCL 180 MG PO SCH (09:36)
--- NOTE | 2018-04-13 11:47 | General Progress Note ---
Subjective - Review of Systems Events since last encounter: patient irritable no distress no pain Subjective: pt. has increasing muscle weakness, and is confused Objective - Results Result Diagrams: 04/07/18 17:39 04/07/18 17:39 Recent Labs: Laboratory Last Values WBC 5.6 Th/cmm (4.8-10.8) 04/07/18 17:39 RBC 3.83 Mil/cmm (3.80-5.20) 04/07/18 17:39 Hgb 11.9 gm/dL (12-16) L 04/07/18 17:39 Hct 36.2 % (41.0-60) L 04/07/18 17:39 MCV 94.5 fl (81-100) 04/07/18 17:39 MCH 31.1 pg (27.0-31.0) H 04/07/18 17:39 MCHC Differential 32.9 pg (28.0-36.0) 04/07/18 17:39 RDW 14.1 % (11.5-20.0) 04/07/18 17:39 Plt Count 174 Th/cmm (150-400) 04/07/18 17:39 MPV 7.8 fl 04/07/18 17:39 Neutrophils % 76.8 % (40.0-80.0) 04/07/18 17:39 Lymphocytes % 13.5 % (20.0-50.0) L 04/07/18 17:39 Monocytes % 8.9 % (2.0-10.0) 04/07/18 17:39 Eosinophils % 0.4 % (0.0-5.0) 04/07/18 17:39 Basophils % 0.4 % (0.0-2.0) 04/07/18 17:39 PT 11.4 SECONDS (9.5-11.5) 04/07/18 17:39 INR 1.09 (0.5-1.4) 04/07/18 17:39 PTT (Actin FS) 29.9 SECONDS (26.0-38.0) 04/07/18 17:39 Sodium 136 mEq/L (136-145) 04/07/18 17:39 Potassium 3.7 mEq/L (3.5-5.1) 04/07/18 17:39 Chloride 102 mEq/L (98-107) 04/07/18 17:39 Carbon Dioxide 25.7 mEq/L (21.0-31.0) 04/07/18 17:39 Anion Gap 12.0 (7.0-16.0) 04/07/18 17:39 BUN 21 mg/dL (7-25) 04/07/18 17:39 Creatinine 0.7 mg/dL (0.6-1.2) 04/07/18 17:39 Est GFR ( Amer) TNP 04/07/18 17:39 Est GFR (Non-Af Amer) TNP 04/07/18 17:39 BUN/Creatinine Ratio 30.0 04/07/18 17:39 Glucose 177 mg/dL (70-105) H 04/07/18 17:39 Calcium 8.9 mg/dL (8.6-10.3) 04/07/18 17:39 Total Bilirubin 0.6 mg/dL (0.3-1.0) 04/07/18 17:39 AST 86 U/L (13-39) H 04/07/18 17:39 ALT 50 U/L (7-52) 04/07/18 17:39 Alkaline Phosphatase 47 U/L (34-104) 04/07/18 17:39 Troponin I 0.02 ng/mL (0.01-0.05) 04/07/18 17:39 Total Protein 6.5 gm/dL (6.0-8.3) 04/07/18 17:39 Albumin 3.1 gm/dL (3.7-5.3) L 04/07/18 17:39 Globulin 3.4 gm/dL 04/07/18 17:39 Albumin/Globulin Ratio 0.9 (1.0-1.8) L 04/07/18 17:39 TSH 1.58 uIU/ml (0.34-5.60) 04/07/18 17:39 Urine Source CATH 04/09/18 14:50 Urine Color YELLOW 04/09/18 14:50 Urine Clarity CLOUDY (CLEAR) H 04/09/18 14:50 Urine pH 6.0 (4.6 - 8.0) 04/09/18 14:50 Ur Specific [place] 1.015 (1.005-1.030) 04/09/18 14:50 Urine Protein 100 mg/dL (NEGATIVE) H 04/09/18 14:50 Urine Glucose (UA) NEGATIVE mg/dL (NEGATIVE) 04/09/18 14:50 Urine Ketones NEGATIVE mg/dL (NEGATIVE) 04/09/18 14:50 Urine Blood MODERATE (NEGATIVE) H 04/09/18 14:50 Urine Nitrate POSITIVE (NEGATIVE) H 04/09/18 14:50 Urine Bilirubin NEGATIVE (NEGATIVE) 04/09/18 14:50 Urine Urobilinogen 1.0 E.U./dL (0.2 - 1.0) 04/09/18 14:50 Ur Leukocyte Esterase LARGE (NEGATIVE) H 04/09/18 14:50 Urine RBC 5-10 /hpf (0-5) H 04/09/18 14:50 Urine WBC >100 /hpf (0-5) H 04/09/18 14:50 Ur Epithelial Cells MODERATE /lpf (FEW) 04/09/18 14:50 Urine Bacteria MANY /hpf (NONE SEEN) H 04/09/18 14:50 - Physical Exam Vitals and I&O: Vital Signs Temp 97.3 F 04/11/18 20:12 Pulse 77 04/13/18 09:36 Resp 19 04/12/18 20:00 BP 137/70 04/13/18 09:36 Pulse Ox 98 04/11/18 20:12 Intake & Output 04/12/18 04/13/18 04/13/18 18:59 06:59 18:59 Intake Total 800 Output Total 3 Balance 797 Intake: Oral 800 Output: Urine 3 Other: # Bowel Movements 1 Active Medications: Current Medications Acetaminophen (Tylenol) 650 mg PO Q4H PRN PRN Reason: Mild Pain / Temp above 100 Stop: 06/06/18 20:19 Acetaminophen/Hydrocodone Bitart ([place] 5mg/325mg) 1 tab PO QID PRN PRN Reason: Pain (Severe) Stop: 06/06/18 20:21 Al Hydrox/Mg Hydrox/Simethicone (Maalox) 30 ml PO Q4H PRN PRN Reason: GI DISTRESS Stop: 06/06/18 20:19 Alendronate Sodium (Fosamax) 70 mg PO Q7D JEANETTE Stop: 06/10/18 06:29 Last Admin: 04/11/18 05:43 Dose: Not Given Atorvastatin Calcium (Lipitor) 20 mg PO DAILY JEANETTE Stop: 06/07/18 08:59 Last Admin: 04/13/18 09:33 Dose: 20 mg Calcium/Vitamin D (Oscal W/Vitamin D) 1 tab PO DAILY JEANETTE Stop: 06/07/18 08:59 Last Admin: 04/13/18 09:35 Dose: 1 tab Cyanocobalamin (Vitamin B12) 1,000 mcg PO DAILY JEANETTE Stop: 06/07/18 08:59 Last Admin: 04/13/18 09:34 Dose: 1,000 mcg Dicyclomine HCl (Bentyl) 10 mg PO TID JEANETTE Stop: 06/06/18 21:59 Last Admin: 04/13/18 09:35 Dose: 10 mg Docusate Sodium (Colace) 500 mg PO DAILY JEANETTE Stop: 06/07/18 08:59 Last Admin: 04/13/18 09:33 Dose: 500 mg Donepezil HCl (Aricept) 5 mg PO HS JEANETTE Stop: 06/07/18 20:59 Last Admin: 04/12/18 21:15 Dose: 5 mg Glimepiride (Amaryl) 1 mg PO QDAC JEANETTE Stop: 06/07/18 07:29 Last Admin: 04/13/18 06:47 Dose: 1 mg Hydrocortisone (Proctozone-Hc) 1 appl RC DAILY JEANETTE Stop: 06/07/18 08:59 Last Admin: 04/13/18 09:36 Dose: Not Given Ibuprofen (Motrin) 400 mg PO QID JEANETTE Stop: 06/06/18 20:59 Last Admin: 04/13/18 09:35 Dose: Not Given Ketotifen Fumarate (Zaditor 0.025% Ophth Soln) 1 drop EACH EYE DAILY JEANETTE Stop: 06/07/18 08:59 Last Admin: 04/13/18 09:36 Dose: 1 drop Lactobacillus Rhamnosus (Culturelle 15b) 1 each PO DAILY JEANETTE Stop: 06/09/18 08:59 Last Admin: 04/13/18 09:34 Dose: 1 each Levofloxacin (Levaquin) 500 mg PO DAILY JEANETTE Stop: 06/08/18 17:39 Last Admin: 04/13/18 09:34 Dose: 500 mg Loperamide HCl (Imodium) 2 mg PO TID PRN PRN Reason: Diarrhea Stop: 06/06/18 20:21 Loratadine (Claritin) 10 mg PO DAILY [facility] Stop: 06/07/18 08:59 Last Admin: 04/13/18 09:34 Dose: 10 mg Lorazepam (Ativan) 0.5 mg PO Q4H PRN; Protocol PRN Reason: Anxiety/agitation Stop: 06/06/18 20:19 Magnesium Hydroxide (Milk Of Magnesia) 30 ml PO HS PRN PRN Reason: Constipation Meclizine HCl (Antivert) 25 mg PO Q8H PRN PRN Reason: Dizziness Stop: 06/06/18 20:21 Memantine (Namenda) 5 mg PO TID [facility] Stop: 06/07/18 08:59 Last Admin: 04/13/18 09:34 Dose: 5 mg Miscellaneous (Probiotic Screen) 1 ea MC PRN PRN PRN Reason: PROTOCOL Stop: 06/09/18 08:14 Multivitamins/Vitamin C (Theragran) 1 tab PO DAILY [facility] Stop: 06/07/18 08:59 Last Admin: 04/13/18 09:34 Dose: 1 tab Ondansetron HCl (Zofran Odt) 4 mg PO Q8H PRN PRN Reason: Nausea / Vomiting Stop: 06/06/18 20:21 Oxybutynin Chloride (Ditropan) 5 mg PO DAILY [facility] Stop: 06/07/18 08:59 Last Admin: 04/13/18 09:34 Dose: 5 mg Pantoprazole Sodium (Protonix) 40 mg PO QDAC [facility] Stop: 06/07/18 07:29 Last Admin: 04/13/18 06:47 Dose: 40 mg Quetiapine Fumarate (Seroquel) 25 mg PO TID [facility]; Protocol Stop: 06/08/18 08:59 Last Admin: 04/13/18 09:33 Dose: 25 mg Sertraline HCl (Zoloft) 25 mg PO DAILY [facility]; Protocol Stop: 06/07/18 08:59 Last Admin: 04/13/18 09:35 Dose: 25 mg Tramadol HCl (Ultram) 50 mg PO BID [facility] Stop: 06/07/18 08:59 Last Admin: 04/13/18 09:35 Dose: Not Given Verapamil HCl (Isoptin Sr) 180 mg PO DAILY [facility] Stop: 06/07/18 08:59 Last Admin: 04/13/18 09:36 Dose: 180 mg Zolpidem Tartrate (Ambien) 5 mg PO HS PRN PRN Reason: Insomnia Stop: 06/06/18 20:19 General: Alert, No acute distress HEENT: PERRLA, EOMI Neck: Supple Cardiovascular: Normal S1, Normal S2 Abdomen: Bowel sounds Psych/Mental Status: Other (decreased sensorium) Assessment/Plan - Problem List Patient Problems: All Active Problems INCREASED WEAKNESS AND CONFUSION (Acute) - Assessment Assessment: Current Active Problems Problem Status Onset INCREASED WEAKNESS AND CONFUSION Acute DIABETES HX OF PERIANAL CANCER HX OF OVARY CA HYPERTENSION. - Plan Plan: as per psych will monitor Nutritional Asmnt/Malnutr-PDOC - Dietary Evaluation Malnutrition Findings (Please click <Entered> for more info): Nutritional Asmnt/Malnutrition Start: 04/08/18 15: 11 Text: Status: Complete Freq: Protocol: Document 04/08/18 15:11 [email or web address] (Rec: 04/08/18 15:28 [email or web address]) Nutritional Asmnt/Malnutrition Patient General Information Nutritional Screening High Risk Diagnosis psychosis Pertinent Medical Hx/Surgical Hx DM, perianal cancer, ovary CA and HTN Subjective Information Pt seen lying in bed at time of visit, very confused. Per ROAD BUILDER, Pt consumed 50% of breakfast this morning. Rex Sanabria noted. Current Diet Order/ Nutrition Support CCHO-60gm Pertinent Medications oscal w/vit D, Vit B12, colace , theragran, protonix, seroquel Pertinent Labs 7/2 glucose 177, AST 86 Nutritional Hx/Data Height 1.63 m Height (Calculated Centimeters) 162.6 Current Weight (lbs) 83.915 kg Weight (Calculated Kilograms) 83.9 Weight (Calculated Grams) 15251.6 [place] Body Weight 120 Body Mass Index (BMI) 31.7 Weight Status Obese GI Symptoms GI Symptoms None Last BM not indicated Difficult in: None Skin Integrity/Comment: intact Current %PO Fair (50-74%) Estimated Nutritional Goals BEE in Kcals: Adj wt of IBW Calories/Kcals/Kg 25-30 Kcals Calculated 0234-5558 Protein: Adj wt of IBW Protein g/k-1.2 Protein Calculated 62-74 Fluid: ml 1550-1860ml (1ml/kcal) Nutritional Problem 1. Problem Problem altered nutrition related labs Etiology hx of DM Signs/Symptoms: glucose 177 Malnutrition Alert Is there a minimum of two criteria No selected? Query Text:Check all the applicable criteria. A minimum of two criteria are recommended for diagnosis of either severe or non-severe malnutrition. Malnutrition Related to Morbid Obesity Malnutrition related to morbid obesity No Intervention/Recommendation Comments 1. Continue with CCHO-60gm diet as ordered. Assist pt with meals as needed. 2. Monitor PO intake, wt, labs and skin integrity 3. F/U as moderate risk in 3-5 days, 04/11-04/13 Expected Outcomes/Goals Expected Outcomes/Goals 1. PO intake to meet at least 75% of nutritional needs. 2. Wt stability, skin to remain intact, labs to approach WNL.
--- NOTE | 2018-04-13 17:27 | Progress Notes ---
DATE: 04/13/2018 SUBJECTIVE: The patient is currently in the hospital, agitation, confusion. Dr. Santiago attempts to speak with her in Romanian, but she is rambling, confused, incoherent, mostly staring blankly, not answering any of my questions, mostly in her room in her bed. Staff noting she slept fairly well last night, seems to be responding to internal stimuli, confused, mumbling to self. MEDICATIONS: Noted. No agitation, no escalation of behaviors over the past 24 hours, but there are current concerns about impulsivity. ASSESSMENT: The patient remains symptomatic, withdrawn, confused, impulsive and unpredictable. PLAN: We will continue to monitor, adjust and titrate medications. She seems to be tolerating current dosages of medications, no side effects noted. JOB# [id number]
[2018-04-14] MEDS: Pantoprazole 40 mg EC Tab PO SCH (06:42)
[2018-04-14] MEDS: Atorvastatin Calcium 10 MG TAB PO SCH (11:01)
[2018-04-14] MEDS: Dicyclomine 10 mg Cap PO SCH ×3 (11:01→21:20)
[2018-04-14] MEDS: Calcium Carb/Vit D 500 mg/200 U Tab PO SCH (11:02)
[2018-04-14] MEDS: Multivitamin Tab PO SCH (11:02)
[2018-04-14] MEDS: HYDROCORTISONE 2.5% RC SCH (11:03)
[2018-04-14] MEDS: Lactobacillus Rhamnosus GG 15 Billion CFU CAP.SPRINK PO SCH (11:03)
[2018-04-14] MEDS: VERAPAMIL HCL 180 MG PO SCH (11:06)
--- NOTE | 2018-04-14 11:50 | Progress Notes ---
DATE: 04/14/2018 SUBJECTIVE: The patient is currently in the hospital, agitation, confusion, rambling, mostly staring blankly in her room, not answering any questions, mumbling to self, Dr. Santiago has spoken with her in Green[place]ic, but she is nonsensical, highly confused, advanced dementia. Family is coming to visit, the patient noted to be confused, needs constant prompting. Medications were noted including doses and frequencies. She needs prompting to eat. She slept fairly well last night. ASSESSMENT: The patient remains asymptomatic, not safe for a lower level of care as noted in regards to her symptoms. However she is calmer, more engaged, not agitated or aggressive at this time. We will continue to monitor. Given her ongoing symptoms, she is not safe for discharge but does seem to be improving. We will continue to monitor. Continue medications. Monitor for any overt side effects or changes in behaviors. [facility]# [id number] PABLO
--- NOTE | 2018-04-14 14:46 | General Progress Note ---
Subjective - Review of Systems Events since last encounter: patient agitated easily confused denies pain Subjective: pt. has increasing muscle weakness, and is confused Objective - Results Result Diagrams: 04/07/18 17:39 04/07/18 17:39 Recent Labs: Laboratory Last Values WBC 5.6 Th/cmm (4.8-10.8) 04/07/18 17:39 RBC 3.83 Mil/cmm (3.80-5.20) 04/07/18 17:39 Hgb 11.9 gm/dL (12-16) L 04/07/18 17:39 Hct 36.2 % (41.0-60) L 04/07/18 17:39 MCV 94.5 fl (81-100) 04/07/18 17:39 MCH 31.1 pg (27.0-31.0) H 04/07/18 17:39 MCHC Differential 32.9 pg (28.0-36.0) 04/07/18 17:39 RDW 14.1 % (11.5-20.0) 04/07/18 17:39 Plt Count 174 Th/cmm (150-400) 04/07/18 17:39 MPV 7.8 fl 04/07/18 17:39 Neutrophils % 76.8 % (40.0-80.0) 04/07/18 17:39 Lymphocytes % 13.5 % (20.0-50.0) L 04/07/18 17:39 Monocytes % 8.9 % (2.0-10.0) 04/07/18 17:39 Eosinophils % 0.4 % (0.0-5.0) 04/07/18 17:39 Basophils % 0.4 % (0.0-2.0) 04/07/18 17:39 PT 11.4 SECONDS (9.5-11.5) 04/07/18 17:39 INR 1.09 (0.5-1.4) 04/07/18 17:39 PTT (Actin FS) 29.9 SECONDS (26.0-38.0) 04/07/18 17:39 Sodium 136 mEq/L (136-145) 04/07/18 17:39 Potassium 3.7 mEq/L (3.5-5.1) 04/07/18 17:39 Chloride 102 mEq/L (98-107) 04/07/18 17:39 Carbon Dioxide 25.7 mEq/L (21.0-31.0) 04/07/18 17:39 Anion Gap 12.0 (7.0-16.0) 04/07/18 17:39 BUN 21 mg/dL (7-25) 04/07/18 17:39 Creatinine 0.7 mg/dL (0.6-1.2) 04/07/18 17:39 Est GFR ( Amer) TNP 04/07/18 17:39 Est GFR (Non-Af Amer) TNP 04/07/18 17:39 BUN/Creatinine Ratio 30.0 04/07/18 17:39 Glucose 177 mg/dL (70-105) H 04/07/18 17:39 Calcium 8.9 mg/dL (8.6-10.3) 04/07/18 17:39 Total Bilirubin 0.6 mg/dL (0.3-1.0) 04/07/18 17:39 AST 86 U/L (13-39) H 04/07/18 17:39 ALT 50 U/L (7-52) 04/07/18 17:39 Alkaline Phosphatase 47 U/L (34-104) 04/07/18 17:39 Troponin I 0.02 ng/mL (0.01-0.05) 04/07/18 17:39 Total Protein 6.5 gm/dL (6.0-8.3) 04/07/18 17:39 Albumin 3.1 gm/dL (3.7-5.3) L 04/07/18 17:39 Globulin 3.4 gm/dL 04/07/18 17:39 Albumin/Globulin Ratio 0.9 (1.0-1.8) L 04/07/18 17:39 TSH 1.58 uIU/ml (0.34-5.60) 04/07/18 17:39 Urine Source CATH 04/09/18 14:50 Urine Color YELLOW 04/09/18 14:50 Urine Clarity CLOUDY (CLEAR) H 04/09/18 14:50 Urine pH 6.0 (4.6 - 8.0) 04/09/18 14:50 Ur Specific [place] 1.015 (1.005-1.030) 04/09/18 14:50 Urine Protein 100 mg/dL (NEGATIVE) H 04/09/18 14:50 Urine Glucose (UA) NEGATIVE mg/dL (NEGATIVE) 04/09/18 14:50 Urine Ketones NEGATIVE mg/dL (NEGATIVE) 04/09/18 14:50 Urine Blood MODERATE (NEGATIVE) H 04/09/18 14:50 Urine Nitrate POSITIVE (NEGATIVE) H 04/09/18 14:50 Urine Bilirubin NEGATIVE (NEGATIVE) 04/09/18 14:50 Urine Urobilinogen 1.0 E.U./dL (0.2 - 1.0) 04/09/18 14:50 Ur Leukocyte Esterase LARGE (NEGATIVE) H 04/09/18 14:50 Urine RBC 5-10 /hpf (0-5) H 04/09/18 14:50 Urine WBC >100 /hpf (0-5) H 04/09/18 14:50 Ur Epithelial Cells MODERATE /lpf (FEW) 04/09/18 14:50 Urine Bacteria MANY /hpf (NONE SEEN) H 04/09/18 14:50 - Physical Exam Vitals and I&O: Vital Signs Temp 97.6 F 04/14/18 14:20 Pulse 73 04/14/18 14:20 Resp 18 04/14/18 14:20 BP 144/66 04/14/18 14:20 Pulse Ox 96 04/14/18 14:20 Intake & Output 04/13/18 04/14/18 04/14/18 18:59 06:59 18:59 Intake Total 240 Balance 240 Intake: Oral 240 Other: # Voids 2 Active Medications: Current Medications Acetaminophen (Tylenol) 650 mg PO Q4H PRN PRN Reason: Mild Pain / Temp above 100 Stop: 06/06/18 20:19 Acetaminophen/Hydrocodone Bitart (Dawn 5mg/325mg) 1 tab PO QID PRN PRN Reason: Pain (Severe) Stop: 06/06/18 20:21 Al Hydrox/Mg Hydrox/Simethicone (Maalox) 30 ml PO Q4H PRN PRN Reason: GI DISTRESS Stop: 06/06/18 20:19 Alendronate Sodium (Fosamax) 70 mg PO Q7D [facility] Stop: 06/10/18 06:29 Last Admin: 04/11/18 05:43 Dose: Not Given Atorvastatin Calcium (Lipitor) 20 mg PO DAILY [facility] Stop: 06/07/18 08:59 Last Admin: 04/14/18 11:01 Dose: 20 mg Calcium/Vitamin D (Oscal W/Vitamin D) 1 tab PO DAILY JEANETTE Stop: 06/07/18 08:59 Last Admin: 04/14/18 11:02 Dose: 1 tab Cyanocobalamin (Vitamin B12) 1,000 mcg PO DAILY [facility]TE Stop: 06/07/18 08:59 Last Admin: 04/14/18 11:02 Dose: 1,000 mcg Dicyclomine HCl (Bentyl) 10 mg PO TID JEANETTE Stop: 06/06/18 21:59 Last Admin: 04/14/18 11:01 Dose: 10 mg Docusate Sodium (Colace) 500 mg PO DAILY JEANETTE Stop: 06/07/18 08:59 Last Admin: 04/14/18 11:05 Dose: 500 mg Donepezil HCl (Aricept) 5 mg PO HS JEANETTE Stop: 06/07/18 20:59 Last Admin: 04/13/18 21:14 Dose: 5 mg Glimepiride (Amaryl) 1 mg PO QDAC [facility] Stop: 06/07/18 07:29 Last Admin: 04/14/18 06:41 Dose: 1 mg Hydrocortisone (Proctozone-Hc) 1 appl RC DAILY [facility]TE Stop: 06/07/18 08:59 Last Admin: 04/14/18 11:03 Dose: 1 appl Ibuprofen (Motrin) 400 mg PO QID [facility]TE Stop: 06/06/18 20:59 Last Admin: 04/14/18 11:05 Dose: Not Given Ketotifen Fumarate (Zaditor 0.025% Oph Soln) 1 drop EACH EYE DAILY JE[facility]TE Stop: 06/07/18 08:59 Last Admin: 04/14/18 11:05 Dose: 1 drop Lactobacillus Rhamnosus (Culturelle 15b) 1 each PO DAILY [facility]ETTE Stop: 06/09/18 08:59 Last Admin: 04/14/18 11:03 Dose: 1 each Levofloxacin (Levaquin) 500 mg PO DAILY [facility] Stop: 06/08/18 17:39 Last Admin: 04/14/18 11:01 Dose: 500 mg Loperamide HCl (Imodium) 2 mg PO TID PRN PRN Reason: Diarrhea Stop: 06/06/18 20:21 Loratadine (Claritin) 10 mg PO DAILY [facility] Stop: 06/07/18 08:59 Last Admin: 04/14/18 11:01 Dose: 10 mg Lorazepam (Ativan) 0.5 mg PO Q4H PRN; Protocol PRN Reason: Anxiety/agitation Stop: 06/06/18 20:19 Magnesium Hydroxide (Milk Of Magnesia) 30 ml PO HS PRN PRN Reason: Constipation Meclizine HCl (Antivert) 25 mg PO Q8H PRN PRN Reason: Dizziness Stop: 06/06/18 20:21 Memantine (Namenda) 5 mg PO TID [facility] Stop: 06/07/18 08:59 Last Admin: 04/14/18 11:01 Dose: 5 mg Miscellaneous (Probiotic Screen) 1 ea MC PRN PRN PRN Reason: PROTOCOL Stop: 06/09/18 08:14 Multivitamins/Vitamin C (Theragran) 1 tab PO DAILY [facility] Stop: 06/07/18 08:59 Last Admin: 04/14/18 11:02 Dose: 1 tab Ondansetron HCl (Zofran Odt) 4 mg PO Q8H PRN PRN Reason: Nausea / Vomiting Stop: 06/06/18 20:21 Oxybutynin Chloride (Ditropan) 5 mg PO DAILY [facility] Stop: 06/07/18 08:59 Last Admin: 04/14/18 11:02 Dose: 5 mg Pantoprazole Sodium (Protonix) 40 mg PO QDAC [facility] Stop: 06/07/18 07:29 Last Admin: 04/14/18 06:42 Dose: 40 mg Quetiapine Fumarate (Seroquel) 25 mg PO TID [facility]; Protocol Stop: 06/08/18 08:59 Last Admin: 04/14/18 11:04 Dose: 25 mg Sertraline HCl (Zoloft) 25 mg PO DAILY [facility]; Protocol Stop: 06/07/18 08:59 Last Admin: 04/14/18 11:02 Dose: 25 mg Tramadol HCl (Ultram) 50 mg PO BID [facility] Stop: 06/07/18 08:59 Last Admin: 04/14/18 11:04 Dose: Not Given Verapamil HCl (Isoptin Sr) 180 mg PO DAILY [facility] Stop: 06/07/18 08:59 Last Admin: 04/14/18 11:06 Dose: Not Given Zolpidem Tartrate (Ambien) 5 mg PO HS PRN PRN Reason: Insomnia Stop: 06/06/18 20:19 General: Alert, No acute distress HEENT: PERRLA, EOMI Neck: Supple Cardiovascular: Normal S1, Normal S2 Abdomen: Bowel sounds Psych/Mental Status: Other (decreased sensorium) Assessment/Plan - Problem List Patient Problems: All Active Problems INCREASED WEAKNESS AND CONFUSION (Acute) - Assessment Assessment: Current Active Problems Problem Status Onset INCREASED WEAKNESS AND CONFUSION Acute DIABETES HX OF PERIANAL CANCER HX OF OVARY CA HYPERTENSION. - Plan Plan: as per psych will monitor Nutritional Asmnt/Malnutr-PDOC - Dietary Evaluation Malnutrition Findings (Please click <Entered> for more info): Nutritional Asmnt/Malnutrition Start: 04/08/18 15: 11 Text: Status: Complete Freq: Protocol: Document 04/08/18 15:11 LCHENG (Rec: 04/08/18 15:28 [email or web address] [email or web address]) Nutritional Asmnt/Malnutrition Patient General Information Nutritional Screening High Risk Diagnosis psychosis Pertinent Medical Hx/Surgical Hx DM, perianal cancer, ovary CA and HTN Subjective Information Pt seen lying in bed at time of visit, very confused. Per VP PATIENT, Pt consumed 50% of breakfast this morning. Rex Sanabria noted. Current Diet Order/ Nutrition Support CCHO-60gm Pertinent Medications oscal w/vit D, Vit B12, colace , theragran, protonix, seroquel Pertinent Labs 7/2 glucose 177, AST 86 Nutritional Hx/Data Height 1.63 m Height (Calculated Centimeters) 162.6 Current Weight (lbs) 83.915 kg Weight (Calculated Kilograms) 83.9 Weight (Calculated Grams) 24688.6 [place] Body Weight 120 Body Mass Index (BMI) 31.7 Weight Status Obese GI Symptoms GI Symptoms None Last BM not indicated Difficult in: None Skin Integrity/Comment: intact Current %PO Fair (50-74%) Estimated Nutritional Goals BEE in Kcals: Adj wt of IBW Calories/Kcals/Kg 25-30 Kcals Calculated 2557-0463 Protein: Adj wt of IBW Protein g/k-1.2 Protein Calculated 62-74 Fluid: ml 1550-1860ml (1ml/kcal) Nutritional Problem 1. Problem Problem altered nutrition related labs Etiology hx of DM Signs/Symptoms: glucose 177 Malnutrition Alert Is there a minimum of two criteria No selected? Query Text:Check all the applicable criteria. A minimum of two criteria are recommended for diagnosis of either severe or non-severe malnutrition. Malnutrition Related to Morbid Obesity Malnutrition related to morbid obesity No Intervention/Recommendation Comments 1. Continue with CCHO-60gm diet as ordered. Assist pt with meals as needed. 2. Monitor PO intake, wt, labs and skin integrity 3. F/U as moderate risk in 3-5 days, 04/11-04/13 Expected Outcomes/Goals Expected Outcomes/Goals 1. PO intake to meet at least 75% of nutritional needs. 2. Wt stability, skin to remain intact, labs to approach WNL.
[2018-04-15] MEDS: Pantoprazole 40 mg EC Tab PO SCH (07:00)
[2018-04-15] MEDS: Atorvastatin Calcium 10 MG TAB PO SCH (09:23)
[2018-04-15] MEDS: Dicyclomine 10 mg Cap PO SCH ×2 (09:23→09:24)
[2018-04-15] MEDS: Multivitamin Tab PO SCH (09:24)
[2018-04-15] MEDS: Calcium Carb/Vit D 500 mg/200 U Tab PO SCH (09:24)
[2018-04-15] MEDS: Lactobacillus Rhamnosus GG 15 Billion CFU CAP.SPRINK PO SCH (09:24)
[2018-04-15] MEDS: VERAPAMIL HCL 180 MG PO SCH (09:26)
[2018-04-15] MEDS: HYDROCORTISONE 2.5% RC SCH (09:26)
--- NOTE | 2018-04-15 11:34 | Internal Medicine Prog Note ---
Internal Medicine Subjective - Subjective Service Date: 04/15/18 Patient seen and examined:: with staff Patient is:: awake Per staff patient has:: tolerating meds Internal Medicine Objective - Results Result Diagrams: 04/07/18 17:39 04/07/18 17:39 Recent Labs: Laboratory Last Values WBC 5.6 Th/cmm (4.8-10.8) 04/07/18 17:39 RBC 3.83 Mil/cmm (3.80-5.20) 04/07/18 17:39 Hgb 11.9 gm/dL (12-16) L 04/07/18 17:39 Hct 36.2 % (41.0-60) L 04/07/18 17:39 MCV 94.5 fl (81-100) 04/07/18 17:39 MCH 31.1 pg (27.0-31.0) H 04/07/18 17:39 MCHC Differential 32.9 pg (28.0-36.0) 04/07/18 17:39 RDW 14.1 % (11.5-20.0) 04/07/18 17:39 Plt Count 174 Th/cmm (150-400) 04/07/18 17:39 MPV 7.8 fl 04/07/18 17:39 Neutrophils % 76.8 % (40.0-80.0) 04/07/18 17:39 Lymphocytes % 13.5 % (20.0-50.0) L 04/07/18 17:39 Monocytes % 8.9 % (2.0-10.0) 04/07/18 17:39 Eosinophils % 0.4 % (0.0-5.0) 04/07/18 17:39 Basophils % 0.4 % (0.0-2.0) 04/07/18 17:39 PT 11.4 SECONDS (9.5-11.5) 04/07/18 17:39 INR 1.09 (0.5-1.4) 04/07/18 17:39 PTT (Actin FS) 29.9 SECONDS (26.0-38.0) 04/07/18 17:39 Sodium 136 mEq/L (136-145) 04/07/18 17:39 Potassium 3.7 mEq/L (3.5-5.1) 04/07/18 17:39 Chloride 102 mEq/L (98-107) 04/07/18 17:39 Carbon Dioxide 25.7 mEq/L (21.0-31.0) 04/07/18 17:39 Anion Gap 12.0 (7.0-16.0) 04/07/18 17:39 BUN 21 mg/dL (7-25) 04/07/18 17:39 Creatinine 0.7 mg/dL (0.6-1.2) 04/07/18 17:39 Est GFR ( Amer) TNP 04/07/18 17:39 Est GFR (Non-Af Amer) TNP 04/07/18 17:39 BUN/Creatinine Ratio 30.0 04/07/18 17:39 Glucose 177 mg/dL (70-105) H 04/07/18 17:39 Calcium 8.9 mg/dL (8.6-10.3) 04/07/18 17:39 Total Bilirubin 0.6 mg/dL (0.3-1.0) 04/07/18 17:39 AST 86 U/L (13-39) H 04/07/18 17:39 ALT 50 U/L (7-52) 04/07/18 17:39 Alkaline Phosphatase 47 U/L (34-104) 04/07/18 17:39 Troponin I 0.02 ng/mL (0.01-0.05) 04/07/18 17:39 Total Protein 6.5 gm/dL (6.0-8.3) 04/07/18 17:39 Albumin 3.1 gm/dL (3.7-5.3) L 04/07/18 17:39 Globulin 3.4 gm/dL 04/07/18 17:39 Albumin/Globulin Ratio 0.9 (1.0-1.8) L 04/07/18 17:39 TSH 1.58 uIU/ml (0.34-5.60) 04/07/18 17:39 Urine Source CATH 04/09/18 14:50 Urine Color YELLOW 04/09/18 14:50 Urine Clarity CLOUDY (CLEAR) H 04/09/18 14:50 Urine pH 6.0 (4.6 - 8.0) 04/09/18 14:50 Ur Specific [place] 1.015 (1.005-1.030) 04/09/18 14:50 Urine Protein 100 mg/dL (NEGATIVE) H 04/09/18 14:50 Urine Glucose (UA) NEGATIVE mg/dL (NEGATIVE) 04/09/18 14:50 Urine Ketones NEGATIVE mg/dL (NEGATIVE) 04/09/18 14:50 Urine Blood MODERATE (NEGATIVE) H 04/09/18 14:50 Urine Nitrate POSITIVE (NEGATIVE) H 04/09/18 14:50 Urine Bilirubin NEGATIVE (NEGATIVE) 04/09/18 14:50 Urine Urobilinogen 1.0 E.U./dL (0.2 - 1.0) 04/09/18 14:50 Ur Leukocyte Esterase LARGE (NEGATIVE) H 04/09/18 14:50 Urine RBC 5-10 /hpf (0-5) H 04/09/18 14:50 Urine WBC >100 /hpf (0-5) H 04/09/18 14:50 Ur Epithelial Cells MODERATE /lpf (FEW) 04/09/18 14:50 Urine Bacteria MANY /hpf (NONE SEEN) H 04/09/18 14:50 - Physical Exam Vitals and I&O: Vital Signs Temp 97.9 F 04/14/18 19:57 Pulse 78 04/14/18 19:57 Resp 19 04/14/18 19:57 BP 138/68 04/14/18 19:57 Pulse Ox 97 04/14/18 19:57 Intake & Output 04/14/18 04/15/18 04/15/18 18:59 06:59 18:59 Intake Total 240 Balance 240 Weight (lbs) 185 lb Intake: Oral 240 Other: # Voids 2 # Bowel Movements 0 Weight Source Bedscale Active Medications: Current Medications Acetaminophen (Tylenol) 650 mg PO Q4H PRN PRN Reason: Mild Pain / Temp above 100 Stop: 06/06/18 20:19 Al Hydrox/Mg Hydrox/Simethicone (Maalox) 30 ml PO Q4H PRN PRN Reason: GI DISTRESS Stop: 06/06/18 20:19 Alendronate Sodium (Fosamax) 70 mg PO Q7D [facility] Stop: 06/10/18 06:29 Last Admin: 04/11/18 05:43 Dose: Not Given Atorvastatin Calcium (Lipitor) 20 mg PO DAILY [facility] Stop: 06/07/18 08:59 Last Admin: 04/15/18 09:23 Dose: 20 mg Calcium/Vitamin D (Oscal W/Vitamin D) 1 tab PO DAILY [facility] Stop: 06/07/18 08:59 Last Admin: 04/15/18 09:24 Dose: 1 tab Cyanocobalamin (Vitamin B12) 1,000 mcg PO DAILY [facility] Stop: 06/07/18 08:59 Last Admin: 04/15/18 09:23 Dose: 1,000 mcg Dicyclomine HCl (Bentyl) 10 mg PO TID [facility] Stop: 06/06/18 21:59 Last Admin: 04/15/18 09:24 Dose: Not Given Docusate Sodium (Colace) 500 mg PO DAILY [facility] Stop: 06/07/18 08:59 Last Admin: 04/15/18 09:23 Dose: 500 mg Donepezil HCl (Aricept) 5 mg PO HS [facility] Stop: 06/07/18 20:59 Last Admin: 04/14/18 21:09 Dose: 5 mg Glimepiride (Amaryl) 1 mg PO QDAC [facility] Stop: 06/07/18 07:29 Last Admin: 04/15/18 06:59 Dose: 1 mg Hydrocortisone (Proctozone-Hc) 1 appl RC DAILY [facility] Stop: 06/07/18 08:59 Last Admin: 04/15/18 09:26 Dose: Not Given Ibuprofen (Motrin) 400 mg PO QID [facility] Stop: 06/06/18 20:59 Last Admin: 04/15/18 09:25 Dose: Not Given Ketotifen Fumarate (Zaditor 0.025% Ophth Soln) 1 drop EACH EYE DAILY [facility] Stop: 06/07/18 08:59 Last Admin: 04/15/18 09:26 Dose: Not Given Lactobacillus Rhamnosus (Culturelle 15b) 1 each PO DAILY [facility] Stop: 06/09/18 08:59 Last Admin: 04/15/18 09:24 Dose: 1 each Loperamide HCl (Imodium) 2 mg PO TID PRN PRN Reason: Diarrhea Stop: 06/06/18 20:21 Loratadine (Claritin) 10 mg PO DAILY [facility] Stop: 06/07/18 08:59 Last Admin: 04/15/18 09:24 Dose: 10 mg Magnesium Hydroxide (Milk Of Magnesia) 30 ml PO HS PRN PRN Reason: Constipation Meclizine HCl (Antivert) 25 mg PO Q8H PRN PRN Reason: Dizziness Stop: 06/06/18 20:21 Memantine (Namenda) 5 mg PO TID [facility] Stop: 06/07/18 08:59 Last Admin: 04/15/18 09:26 Dose: Not Given Miscellaneous (Probiotic Screen) 1 ea MC PRN PRN PRN Reason: PROTOCOL Stop: 06/09/18 08:14 Multivitamins/Vitamin C (Theragran) 1 tab PO DAILY [facility] Stop: 06/07/18 08:59 Last Admin: 04/15/18 09:24 Dose: 1 tab Ondansetron HCl (Zofran Odt) 4 mg PO Q8H PRN PRN Reason: Nausea / Vomiting Stop: 06/06/18 20:21 Oxybutynin Chloride (Ditropan) 5 mg PO DAILY [facility] Stop: 06/07/18 08:59 Last Admin: 04/15/18 09:24 Dose: 5 mg Pantoprazole Sodium (Protonix) 40 mg PO QDAC [facility] Stop: 06/07/18 07:29 Last Admin: 04/15/18 07:00 Dose: 40 mg Quetiapine Fumarate (Seroquel) 25 mg PO TID [facility]; Protocol Stop: 06/08/18 08:59 Last Admin: 04/15/18 09:26 Dose: Not Given Sertraline HCl (Zoloft) 25 mg PO DAILY [facility]; Protocol Stop: 06/07/18 08:59 Last Admin: 04/15/18 09:24 Dose: 25 mg Tramadol HCl (Ultram) 50 mg PO BID [facility] Stop: 06/07/18 08:59 Last Admin: 04/15/18 09:25 Dose: Not Given Verapamil HCl (Isoptin Sr) 180 mg PO DAILY [facility] Stop: 06/07/18 08:59 Last Admin: 04/15/18 09:26 Dose: Not Given General: alert HEENT: NC/AT, PERRLA Neck: Supple Lungs: CTAB Cardiovascular: RRR, Normal S1, without murmur Abdomen: soft, non-distended, positive bowel sound Neurological: no change Internal Medicine Assmt/Plan - Assessment Assessment: DIABETES HX OF PERIANAL CANCER HX OF OVARY CA HYPERTENSION. - Plan Plan: monitor glucose continue current plan of care Nutritional Asmnt/Malnutr-PDOC - Dietary Evaluation Malnutrition Findings (Please click <Entered> for more info): Nutritional Asmnt/Malnutrition Start: 04/08/18 15: 11 Text: Status: Complete Freq: Protocol: Document 04/08/18 15:11 [email or web address] (Rec: 04/08/18 15:28 [email or web address] [email or web address]) Nutritional Asmnt/Malnutrition Patient General Information Nutritional Screening High Risk Diagnosis psychosis Pertinent Medical Hx/Surgical Hx DM, perianal cancer, ovary CA and HTN Subjective Information Pt seen lying in bed at time of visit, very confused. Per DIRECTOR OF DISTANCE LEARNING, Pt consumed 50% of breakfast this morning. Rex Sanabria noted. Current Diet Order/ Nutrition Support CCHO-60gm Pertinent Medications oscal w/vit D, Vit B12, colace , theragran, protonix, seroquel Pertinent Labs 04/07 glucose 177, AST 86 Nutritional Hx/Data Height 5 ft 4 in Height (Calculated Centimeters) 162.6 Current Weight (lbs) 185 lb Weight (Calculated Kilograms) 83.9 Weight (Calculated Grams) 81870.6 [place] Body Weight 120 Body Mass Index (BMI) 31.7 Weight Status Obese GI Symptoms GI Symptoms None Last BM not indicated Difficult in: None Skin Integrity/Comment: intact Current %PO Fair (50-74%) Estimated Nutritional Goals BEE in Kcals: Adj wt of IBW Calories/Kcals/Kg 25-30 Kcals Calculated 4244-4465 Protein: Adj wt of IBW Protein g/k-1.2 Protein Calculated 62-74 Fluid: ml 1550-1860ml (1ml/kcal) Nutritional Problem 1. Problem Problem altered nutrition related labs Etiology hx of DM Signs/Symptoms: glucose 177 Malnutrition Alert Is there a minimum of two criteria No selected? Query Text:Check all the applicable criteria. A minimum of two criteria are recommended for diagnosis of either severe or non-severe malnutrition. Malnutrition Related to Morbid Obesity Malnutrition related to morbid obesity No Intervention/Recommendation Comments 1. Continue with CCHO-60gm diet as ordered. Assist pt with meals as needed. 2. Monitor PO intake, wt, labs and skin integrity 3. F/U as moderate risk in 3-5 days, 04/11-04/13 Expected Outcomes/Goals Expected Outcomes/Goals 1. PO intake to meet at least 75% of nutritional needs. 2. Wt stability, skin to remain intact, labs to approach WNL.
--- NOTE | 2018-04-15 21:40 | Discharge Summary ---
DATE OF DISCHARGE: 04/15/2018 JUSTIFICATION FOR HOSPITALIZATION: The patient coming into the hospital, dementia, psychosis, agitation. HISTORY OF PRESENT ILLNESS: An 87-year-old female with advanced dementia, acute change in behavior, possibly delirium, irritable, agitated, rambling nonsensical. The patient is originally from [place]. Dr. Santiago attempting to speak with her over the course of the hospitalization in [place]ian, but she was nonsensical. I spoke with daughter on day of admission, who confirms the patient does not make any sense, jumping from one topic to the next; not answering questions appropriately even in [place], her [place] language. PAST PSYCHIATRIC HISTORY: Dementia. FAMILY HISTORY: Noncontributory. SOCIAL HISTORY: Good family involvement. [id number] at bedside. Her name is Rika. MENTAL STATUS EXAMINATION: Please see full psych eval for details. PROVISIONAL DIAGNOSIS: Dementia, dementia with behaviors; psychosis, unspecified. MEDICAL: Please see full H and P. HOSPITAL COURSE: After initial assessment, the patient was started on medications to address her agitation, Seroquel, Zoloft. Medications were titrated including Namenda. Over the course of the hospitalization, her mood improved, affect improved, getting along better with staff and peers, more engaged, but remains highly confused, no longer combative, no longer agitated. By 04/15/2018 the family wanted to transfer to [facility]. She was asymptomatic and transferred. CONDITION UPON DISCHARGE: Improved. Better eye contact. Awake, alert, confused, no SI, no HI, no suicidal gestures, no evidence of any psychosis. Family pleased with progress and treatment. Staff noting that she has been doing better. No agitation, likely at her baseline. Better impulse control. PROVISIONAL DIAGNOSES: Dementia, dementia with behaviors; psychosis, unspecified; anxiety, unspecified. MEDICAL: Please see full H and P. PROGNOSIS: The patient follows up with outpatient mental health services and remains treatment compliant. Prognosis will improve, otherwise guarded. [facility]# [id number]
== END 2018-04-15 17:45 | DRG 884 ==
LOC: ER 17:05 → GERO2 19:10
PROVIDERS: ADMIT Psychiatry & Neurology Psychiatry; ATTEND Psychiatry & Neurology Psychiatry
DX: F03.91 Unspecified dementia, unspecified severity, with behavioral disturbance (principal); F23 Brief psychotic disorder; I10 Essential (primary) hypertension; E11.9 Type 2 diabetes mellitus without complications; F32.9 Major depressive disorder, single episode, unspecified; M19.90 Unspecified osteoarthritis, unspecified site; M81.0 Age-related osteoporosis without current pathological fracture; E78.5 Hyperlipidemia, unspecified; K21.9 Gastro-esophageal reflux disease without esophagitis; N32.81 Overactive bladder; Z85.43 Personal history of malignant neoplasm of ovary; Z85.048 Personal history of other malignant neoplasm of rectum, rectosigmoid junction, and anus
CPT/HCPCS: 36415-UA; 71045-TC; 80053-TC; 81001-TC; 84443-TC; 84484-TC; 85025-TC; 85610-TC; 85730-TC; 87086-90; 93005; 97530; X3904; Z7610

== ENCOUNTER 2018-07-14 20:19 | Inpatient (IN) | payer MEDICARE, MEDICAID ==
--- NOTE | 2018-07-14 21:11 | ED Physician Chart ---
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 several times with recurrence has large abd hernia mainly bedridden uses walker sometimes at the [facility] pt awake verbal Allergies:: Allergies Allergy/AdvReac Type Severity Reaction Status Date / Time No Known Allergies Allergy Verified 07/14/18 20:32 Vitals:: Vital Signs - 8 hr 07/14/18 20:30 Temp 97.6 F HR 74 RR 18 BP 98/62 O2 Sat % 98 ED Review of Systems - Review of Systems General/Constitutional: No fever Head: No headache Eyes: No loss of vision Neck: No neck pain Cardio Vascular: No chest pain Pulmonary: No SOB GI: No vomiting G/U: No dysuria Musculoskeletal: Bone or joint pain Endocrine: No polyuria Psychiatric: Depression Hematopoietic: Bruising Neurological: No syncope Family Medical History - Family Member mother History Unknown: Yes Ethnicity: Unknown Living Status: Unknown ED Septic Shock - . Is Septic Shock (SBP<90, OR Lactate>4 mmol\L) present?: No - <6hrs of presentation: Vital Signs: Vital Signs - 8 hr 07/14/18 20:30 Temp 97.6 F HR 74 RR 18 BP 98/62 O2 Sat % 98 ED Reassessment (Disposition) - Reassessment Reassessment Condition:: Unchanged - Diagnosis Diagnosis:: lt led edema and cellulitis venous doppler ordered and labs ekg and cxr - Patient Disposition Discharge/Transfer:: Acute Care w/in this hosp Condition at Disposition:: Stable
[2018-07-14 21:13] LABS: % BASOPHILS 0.7 % (0.0-2.0); % EOSINOPHILS 1.7 % (0.0-5.0); % LYMPHOCYTES 28.4 % (20.0-50.0); % MONOCYTES 3.7 % (2.0-10.0); % NEUTROPHILS 65.5 % (40.0-80.0); EOSINOPHILE ABSOLUTE 0.1 Th/cmm (0.1-0.4); HEMATOCRIT 33.3 % (41.0-60); HEMOGLOBIN 10.7 gm/dL (12-16); LYMPHOCYTE ABSOLUTE 1.8 Th/cmm (1.5-3.0); MEAN CELL VOLUME 94.5 fl (81-100); MEAN CORPUSCULAR HEMOGLOBIN 30.4 pg (27.0-31.0); MEAN CORPUSCULAR HGB CONC 32.1 pg (28.0-36.0); MEAN PLATELET VOLUME 7.4 fl; MONOCYTE ABSOLUTE 0.2 Th/cmm (0.3-1.0); NEUTROPHILE ABSOLUTE 4.4 Th/cmm (1.8-8.0); PLATELET COUNT 260 Th/cmm (150-400); RED BLOOD COUNT 3.52 Mil/cmm (3.80-5.20); RED CELL DISTRIBUTION WIDTH 15.3 % (11.5-20.0); WHITE BLOOD COUNT 6.5 Th/cmm (4.8-10.8)
[2018-07-14 21:32] LABS: ALB/GLOB RATIO 0.9 (1.0-1.8); ALKALINE PHOSPHATASE 55 U/L (34-104); ANION GAP 9.8 (7.0-16.0); BILIRUBIN,TOTAL 0.4 mg/dL (0.3-1.0); BUN - UREA NITROGEN 14 mg/dL (7-25); CALCIUM SERUM 8.7 mg/dL (8.6-10.3); CARBON DIOXIDE 27.4 mEq/L (21.0-31.0); CHLORIDE 102 mEq/L (98-107); CREATININE - SERUM 0.6 mg/dL (0.6-1.2); GLUCOSE 113 mg/dL (70-105); POTASSIUM SERUM 3.2 mEq/L (3.5-5.1); SGOT 15 U/L (13-39); SGPT/ALT 7 U/L (7-52); SODIUM SERUM 136 mEq/L (136-145); TOTAL PROTEIN,SERUM 6.4 gm/dL (6.0-8.3); TROP I 0.01 ng/mL (0.01-0.05)
[2018-07-14] MEDS ORDERED: Potassium Chloride 20 mEq ER Tab PO ONE ×2 (21:40→22:07)
[2018-07-14] MEDS ORDERED: Morphine Sulfate 2 mg/mL 1mL Syr IV STA (22:01)
[2018-07-14] MEDS ORDERED: Sodium Chloride 0.9% 1,000 ML IV ONE ×2 (22:06→23:53)
[2018-07-14] MEDS ORDERED: cefTRIAXone 2 GM in Sodium Chloride 0.9% 100 ML IV ONE (22:17)
[2018-07-14] MEDS ORDERED: Morphine Sulfate 2 mg/mL 1mL Syr ONE (23:00)
[2018-07-15] MEDS ORDERED: Enoxaparin Subq per Pharmacy MC SCH (00:45)
[2018-07-15] MEDS ORDERED: Piperacillin Sodium/Tazobact 3.375 gm Vial IV ONE (02:01)
[2018-07-15 06:54] LABS: % BASOPHILS 0.3 % (0.0-2.0); % EOSINOPHILS 2.9 % (0.0-5.0); % MONOCYTES 7.4 % (2.0-10.0); % NEUTROPHILS 48.4 % (40.0-80.0); EOSINOPHILE ABSOLUTE 0.2 Th/cmm (0.1-0.4); HEMATOCRIT 28.4 % (41.0-60); HEMOGLOBIN 9.6 gm/dL (12-16); LYMPHOCYTE ABSOLUTE 2.3 Th/cmm (1.5-3.0); MEAN CELL VOLUME 94.8 fl (81-100); MEAN CORPUSCULAR HEMOGLOBIN 31.9 pg (27.0-31.0); MEAN CORPUSCULAR HGB CONC 33.7 pg (28.0-36.0); MEAN PLATELET VOLUME 7.9 fl; MONOCYTE ABSOLUTE 0.4 Th/cmm (0.3-1.0); NEUTROPHILE ABSOLUTE 2.8 Th/cmm (1.8-8.0); PLATELET COUNT 211 Th/cmm (150-400); RED CELL DISTRIBUTION WIDTH 14.8 % (11.5-20.0); WHITE BLOOD COUNT 5.7 Th/cmm (4.8-10.8)
[2018-07-15 07:15] LABS: BUN - UREA NITROGEN 12 mg/dL (7-25); CALCIUM SERUM 7.8 mg/dL (8.6-10.3); CARBON DIOXIDE 25.7 mEq/L (21.0-31.0); CHLORIDE 109 mEq/L (98-107); CHOLESTEROL 87 mg/dL (<200); CREATININE - SERUM 0.6 mg/dL (0.6-1.2); GLUCOSE 99 mg/dL (70-105); HDL -HIGH DENSITY LIPOPROTEIN 39 mg/dL (23-92); POTASSIUM SERUM 3.7 mEq/L (3.5-5.1); SODIUM SERUM 138 mEq/L (136-145); TRIGLYCERIDES 54 mg/dL (<150)
[2018-07-15 07:39] LABS: DDIMER QUANT 4000 ng/mL (100-400)
[2018-07-15] MEDS ORDERED: Magnesium Hydroxide (MOM) 30 mL UDC PO PRN (07:55)
[2018-07-15] MEDS ORDERED: Maalox 30 mL Cup PO PRN (07:55)
--- NOTE | 2018-07-15 07:59 | General Progress Note ---
Subjective - Review of Systems Service Date: 07/15/18 Events since last encounter: chart reviewed patient examined - swollen left leg with cellulitis not able to cooperate on US study for DVT started on Heparin, repeat US Objective - Results Result Diagrams: 07/15/18 05:35 07/15/18 05:35 Recent Labs: Laboratory Last Values WBC 5.7 Th/cmm (4.8-10.8) 07/15/18 05:35 RBC 3.00 Mil/cmm (3.80-5.20) L 07/15/18 05:35 Hgb 9.6 gm/dL (12-16) L 07/15/18 05:35 Hct 28.4 % (41.0-60) L 07/15/18 05:35 MCV 94.8 fl (81-100) 07/15/18 05:35 MCH 31.9 pg (27.0-31.0) H 07/15/18 05:35 MCHC Differential 33.7 pg (28.0-36.0) 07/15/18 05:35 RDW 14.8 % (11.5-20.0) 07/15/18 05:35 Plt Count 211 Th/cmm (150-400) 07/15/18 05:35 MPV 7.9 fl 07/15/18 05:35 Neutrophils % 48.4 % (40.0-80.0) 07/15/18 05:35 Lymphocytes % 41.0 % (20.0-50.0) 07/15/18 05:35 Monocytes % 7.4 % (2.0-10.0) 07/15/18 05:35 Eosinophils % 2.9 % (0.0-5.0) 07/15/18 05:35 Basophils % 0.3 % (0.0-2.0) 07/15/18 05:35 D-Dimer 4000 ng/mL (100-400) H 07/15/18 05:35 Sodium 138 mEq/L (136-145) 07/15/18 05:35 Potassium 3.7 mEq/L (3.5-5.1) 07/15/18 05:35 Chloride 109 mEq/L (98-107) H 07/15/18 05:35 Carbon Dioxide 25.7 mEq/L (21.0-31.0) 07/15/18 05:35 Anion Gap 7.0 (7.0-16.0) 07/15/18 05:35 BUN 12 mg/dL (7-25) 07/15/18 05:35 Creatinine 0.6 mg/dL (0.6-1.2) 07/15/18 05:35 Est GFR ( Amer) TNP 07/15/18 05:35 Est GFR (Non-Af Amer) TNP 07/15/18 05:35 BUN/Creatinine Ratio 20.0 07/15/18 05:35 Glucose 99 mg/dL (70-105) 07/15/18 05:35 Whole Bld Lactic Acid 1.27 mmol/L (0.60-1.99) 07/14/18 21:00 Calcium 7.8 mg/dL (8.6-10.3) L 07/15/18 05:35 Total Bilirubin 0.4 mg/dL (0.3-1.0) 07/14/18 21:00 AST 15 U/L (13-39) 07/14/18 21:00 ALT 7 U/L (7-52) 07/14/18 21:00 Alkaline Phosphatase 55 U/L (34-104) 07/14/18 21:00 Troponin I 0.01 ng/mL (0.01-0.05) 07/14/18 21:00 Total Protein 6.4 gm/dL (6.0-8.3) 07/14/18 21:00 Albumin 3.0 gm/dL (3.7-5.3) L 07/14/18 21:00 Globulin 3.4 gm/dL 07/14/18 21:00 Albumin/Globulin Ratio 0.9 (1.0-1.8) L 07/14/18 21:00 Triglycerides 54 mg/dL (<150) 07/15/18 05:35 Cholesterol 87 mg/dL (<200) 07/15/18 05:35 LDL Cholesterol Direct 31 mg/dL (75-193) L 07/15/18 05:35 HDL Cholesterol 39 mg/dL (23-92) 07/15/18 05:35 - Physical Exam Vitals and I&O: Vital Signs Temp 96.4 F 07/15/18 04:00 Pulse 69 07/15/18 04:00 Resp 17 07/15/18 04:00 BP 94/44 07/15/18 04:00 Pulse Ox 96 07/15/18 04:00 Intake & Output 07/14/18 07/15/18 07/15/18 18:59 06:59 18:59 Intake Total 120 Balance 120 Weight (lbs) 81.647 kg Intake: Oral 120 Other: # Voids 2 # Bowel Movements 1 Weight Source Bedscale Active Medications: Current Medications Enoxaparin Sodium (Lovenox) 80 mg SUBQ Q12HR JEANETTE Stop: 09/13/18 08:59 Furosemide (Lasix) 40 mg IVP DAILY JEANETTE Stop: 09/13/18 08:59 Piperacillin Sod/Tazobactam (Sod 3.375 gm/ Sodium Chloride) 50 mls @ 100 mls/ hr IV Q8HR JEANETTE Stop: 09/13/18 04:59 Last Admin: 07/15/18 05:45 Dose: 100 mls/hr Miscellaneous (Lovenox Subq Per Pharmacy) 1 fantasma MARX PRN JEANETTE; Protocol Stop: 09/13/18 00:44
[2018-07-15] MEDS ORDERED: Enoxaparin 80 mg/0.8 mL 0.8mL Syr SUBQ SCH (09:00)
[2018-07-15] MEDS: Atorvastatin Calcium 10 MG TAB PO SCH (09:49)
[2018-07-15] MEDS: Lactobacillus Rhamnosus GG 15 Billion CFU CAP.SPRINK PO SCH (09:49)
[2018-07-15] MEDS: Calcium Carb/Vit D 500 mg/200 U Tab PO SCH (09:50)
[2018-07-15] MEDS: Dicyclomine 10 mg Cap PO SCH ×3 (09:51→20:55)
[2018-07-15] MEDS: Multivitamin Tab PO SCH (09:51)
[2018-07-15] MEDS: VERAPAMIL HCL 180 MG PO SCH (09:52)
[2018-07-15] MEDS: Enoxaparin 80 mg/0.8 mL 0.8mL Syr SUBQ SCH ×3 (09:53→21:00)
--- NOTE | 2018-07-15 10:54 | Diagnostic Imaging Report ---
Right lower extremity Doppler venous ultrasound exam HISTORY: Swelling The exam could not tolerate evaluation of the left leg. The right leg demonstrates patency of the common femoral, superficial femoral, popliteal, and posterior tibial veins. No thrombus. Normal compressibility and augmentation responses. IMPRESSION: 1. Negative examination for deep vein thrombophlebitis within the right leg. 2. The patient could not tolerate evaluation of the left leg
--- NOTE | 2018-07-15 12:26 | Diagnostic Imaging Report ---
Left lower extremity Doppler venous ultrasound exam HISTORY: Swelling The exam is extremely limited due to patient allergy dilatation, motion, lack of cooperation. Suboptimal visualization of the common femoral, superficial femoral, popliteal veins. IMPRESSION: 1. Very limited and inconclusive exam due to the factors noted above.
--- NOTE | 2018-07-15 12:28 | Diagnostic Imaging Report ---
Portable chest x-ray HISTORY: Shortness of breath The overall heart size is difficult to assess with portable technique in a poor inspiration, but appears generous. Atherosclerotic calcification seen in the aorta. No acute focal pulmonary processes. IMPRESSION: 1. No acute focal pulmonary processes 2. Atherosclerotic vascular changes
--- NOTE | 2018-07-15 15:49 | History & Physical ---
ADMIT DATE: 07/15/2018 DICTATING FOR: Dr. Bhatia. CHIEF COMPLAINT: Left lower leg swelling. HISTORY OF PRESENT ILLNESS: This is an 87-year-old female who has a 1-week history of left leg swelling associated with redness and pain that seems to worsen day by day. For further management, the patient is now admitted here to the telemetry unit. PAST MEDICAL HISTORY: Rectal CA with mets, status post XRT with recurrent large abdominal hernia, generalized weakness, ovary CA, hypertension, diabetes. FAMILY HISTORY: Noncontributory. REVIEW OF SYSTEMS: GENERAL: Complains of weakness. CARDIOVASCULAR: Denies chest pain. RESPIRATORY: Denies shortness of breath. GASTROINTESTINAL: Denies nausea, vomiting, abdominal pain. GENITOURINARY: Denies increased frequency, dysuria. NEUROLOGIC: Denies seizures. All other systems are reviewed and are negative. PHYSICAL EXAMINATION: GENERAL: The patient is an elderly female, awake, alert, in no apparent distress. VITAL SIGNS: Temperature 97.2, heart rate 60, blood pressure 102/52, respirations 19, O2 96%. HEENT: Head: Normocephalic, atraumatic. NECK: Supple. No mass. LUNGS: Clear bilaterally. HEART: Regular rate and rhythm. ABDOMEN: Soft, nontender. EXTREMITIES: Bilateral lower extremity noted with +3 edema. LABORATORY DATA: WBC 5.0, H and H 9.6 and 28.4, platelet of 211. D-dimer 4000. Sodium 138, potassium 3.7, chloride 109, BUN 12, creatinine 0.6. DIAGNOSTICS: The patient had a lower extremity ultrasound done. Impression is negative examination of DVT within the right leg. The patient also had another ultrasound on the left leg. Impression is very limited in occlusive exam due to factors noted above. The patient had a chest x-ray done and impression is no acute focal pulmonary processes, atherosclerotic vascular changes. ASSESSMENT: Bilateral leg edema, rule out acute deep vein thrombosis, diabetes, history of perianal cancer, history of ovarian cancer and hypertension. PLAN: We will get ID consultation as well as Surgical consultation and Cardiology consultation. We will keep patient on empiric IV antibiotics and Lovenox 80 mg subcutaneous q.12 hours. We will continue to follow this patient. [facility]# [id number]
--- NOTE | 2018-07-15 17:35 | Consultation ---
DATE OF CONSULTATION: 07/15/[address] Bhatia. HISTORY OF PRESENT ILLNESS: This is an 87-year-old Faro[place] female patient, came to the Emergency Room and admitted for left leg swelling. No history of chest pain, palpitation. The patient's D-dimer is elevated. PAST MEDICAL HISTORY: Rectal cancer with radiation, large abdominal hernia, dementia, osteoporosis, diabetes mellitus type 2, hypertension, hyperlipidemia, GERD, and ovarian cancer. FAMILY HISTORY: Unremarkable. SOCIAL HISTORY: No history of smoking, alcohol abuse. ALLERGIES: None. PHYSICAL EXAMINATION: VITAL SIGNS: Blood pressure 130/80, pulse 70, and respirations 20. HEAD: Normocephalic. No lumps or bumps. EYES: Pupils equal, reactive to light. Fundi show AV nicking, sclerae white, conjunctivae pink. NECK: Carotid 2+. Normal upstroke. JVD flat. Thyroid not palpable. Lymph nodes not palpable. CHEST: Shows increased AP diameter. No kyphosis, scoliosis. LUNGS: Bilateral bronchovesicular breath sounds. HEART: PMI fifth intercostal space with lateral to midclavicular line. S1, S2. No S3, soft S4, soft systolic murmur. ABDOMEN: Soft. Liver and spleen not palpable. No organomegaly. Bowel sounds active. NEUROLOGIC: Unremarkable. EXTREMITIES: Peripheral pulses 2+. No pedal edema. The patient has swelling of the left lower extremity. CLINICAL IMPRESSION: Swelling, left leg, possible left leg deep venous thrombosis; rectal cancer with metastasis; ovarian cancer; large abdominal hernia; dementia; osteoporosis; diabetes mellitus type 2; hypertension; hyperlipidemia; and gastroesophageal reflux disease. PLAN: At the present time, good venous duplex study. Continue heparin drip. The patient's condition discussed with grandson at the bedside. JOB# [id number]
[2018-07-16 05:18] LABS: % BASOPHILS 0.7 % (0.0-2.0); % EOSINOPHILS 3.1 % (0.0-5.0); % LYMPHOCYTES 35.6 % (20.0-50.0); % MONOCYTES 5.5 % (2.0-10.0); % NEUTROPHILS 55.1 % (40.0-80.0); EOSINOPHILE ABSOLUTE 0.2 Th/cmm (0.1-0.4); HEMATOCRIT 32.4 % (41.0-60); HEMOGLOBIN 10.7 gm/dL (12-16); LYMPHOCYTE ABSOLUTE 2.2 Th/cmm (1.5-3.0); MEAN CELL VOLUME 95.6 fl (81-100); MEAN CORPUSCULAR HEMOGLOBIN 31.5 pg (27.0-31.0); MEAN PLATELET VOLUME 7.6 fl; MONOCYTE ABSOLUTE 0.3 Th/cmm (0.3-1.0); NEUTROPHILE ABSOLUTE 3.6 Th/cmm (1.8-8.0); PLATELET COUNT 236 Th/cmm (150-400); RED BLOOD COUNT 3.39 Mil/cmm (3.80-5.20); RED CELL DISTRIBUTION WIDTH 15.5 % (11.5-20.0); WHITE BLOOD COUNT 6.3 Th/cmm (4.8-10.8)
[2018-07-16 06:09] LABS: ANION GAP 9.5 (7.0-16.0); BUN - UREA NITROGEN 10 mg/dL (7-25); CARBON DIOXIDE 25.1 mEq/L (21.0-31.0); CHLORIDE 107 mEq/L (98-107); CREATININE - SERUM 0.6 mg/dL (0.6-1.2); GLUCOSE 79 mg/dL (70-105); POTASSIUM SERUM 3.6 mEq/L (3.5-5.1); SODIUM SERUM 138 mEq/L (136-145)
[2018-07-16 06:24] LABS: URINE SOURCE RANDOM
[2018-07-16] MEDS: Pantoprazole 40 mg EC Tab PO SCH (06:34)
[2018-07-16 07:04] LABS: URINE BILIRUBIN NEGATIVE (NEGATIVE); URINE BLOOD TRACE (NEGATIVE); URINE GLUCOSE (UA) NEGATIVE (NEGATIVE); URINE KETONE NEGATIVE (NEGATIVE); URINE LEUKOCYTE ESTERASE LARGE (NEGATIVE); URINE MICROSCOPIC INDICATED? YES; URINE NITRATE NEGATIVE (NEGATIVE); URINE PROTEIN NEGATIVE (NEGATIVE); URINE UROBILINOGEN 0.2 E.U./dL (0.2 - 1.0)
[2018-07-16 07:15] LABS: URINE CLARITY HAZY (CLEAR); URINE COLOR YELLOW
[2018-07-16 08:09] LABS: URINE RBC 0-2 /hpf (0-5)
[2018-07-16 08:09] LABS: HEP A AB IGM Negative (Negative); HEP B CORE IGM Negative (Negative); HEP B SURFACE AG QL Negative (Negative); HEP C ANTIBODY 0.2 s/co ratio (0.0-0.9)
[2018-07-16 08:10] LABS: URINE BACTERIA FEW /hpf (NONE SEEN); URINE EPITHELIAL CELLS FEW /lpf (FEW)
[2018-07-16] MEDS: Atorvastatin Calcium 10 MG TAB PO SCH (11:36)
[2018-07-16] MEDS: Calcium Carb/Vit D 500 mg/200 U Tab PO SCH (11:37)
[2018-07-16] MEDS: Lactobacillus Rhamnosus GG 15 Billion CFU CAP.SPRINK PO SCH (11:37)
[2018-07-16] MEDS: Dicyclomine 10 mg Cap PO SCH ×3 (11:37→20:38)
[2018-07-16] MEDS: Enoxaparin 80 mg/0.8 mL 0.8mL Syr SUBQ SCH ×2 (11:37→20:39)
[2018-07-16] MEDS: VERAPAMIL HCL 180 MG PO SCH (11:38)
[2018-07-16] MEDS: Multivitamin Tab PO SCH (11:38)
--- NOTE | 2018-07-16 14:35 | Consultation ---
Consult Note - Consult Note Service Date: 07/16/18 Referring Physician: Sara Bhatia Consult Note: PHYSICIAN Consultation Note: Date of Admission: 07/14/18 Purpose of Consultation: cellulitis f legs. Chief Complaint: Patient GEORGE ARMIJO was admitted to [facility] Telemetry with BILATERAL LEG EDEMA,POSSIBLE DVT. History of Present Illness: 87 female with past medical history of rectal CA with metastasis treated by radiotherapy large abdominal hernia, hypertension, diabetes mellitus type 2, admitted to the hospital for left leg swelling with redness and tenderness for 3 days. On initial evaluation, her temperature was 97.6F and WBC count was 6500. Past Medical History: Rectal CA with metastasis, treated by radiotherapy, large abdominal hernia, hypertension, diabetes mellitus type 2, Diagnoses TYPE 2 DIABETES MELLITUS WITHOUT COMPLICATIONS (07/14/18) UNSPECIFIED DEMENTIA WITHOUT BEHAVIORAL DISTURBANCE (07/14/18) ESSENTIAL (PRIMARY) HYPERTENSION (07/14/18) ACUTE EMBOLISM AND THOMBOS UNSP DEEP VEINS OF L LOW EXTREM (07/14/18) AGE-RELATED OSTEOPOROSIS W/O CURRENT PATHOLOGICAL FRACTURE (07/14/18) WEAKNESS (07/14/18) LOCALIZED EDEMA (07/14/18) PERSONAL HISTORY OF MALIGNANT NEOPLASM OF OVARY (07/14/18) Allergies Allergy/AdvReac Type Severity Reaction Status Date / Time No Known Allergies Allergy Verified 07/14/18 20:32 Vital Signs Temp 98.1 F 07/16/18 12:00 Pulse 85 07/16/18 12:00 Resp 18 07/16/18 12:00 BP 134/42 07/16/18 12:00 Pulse Ox 96 07/16/18 12:00 Intake & Output 07/15/18 07/16/18 07/16/18 18:59 06:59 18:59 Intake Total 650 100 Balance 650 100 Weight (lbs) 81.647 kg 65.317 kg Intake: Intake, IV Amount 50 100 Piperacillin Sodium/ 50 100 Tazobact 3.375 gm In Sodium Chloride 0.9% 50 ml @ 100 mls/hr IV Q8HR JEANETTE Rx#:[id number] Oral 600 Other: # Voids 2 3 # Bowel Movements 0 Weight Source Bedscale Bedscale Laboratory Results - last 24 hr 07/15/18 07/16/18 07/16/18 05:35 04:55 04:55 WBC 6.3 RBC 3.39 L Hgb 10.7 L Hct 32.4 L MCV 95.6 MCH 31.5 H MCHC Differential 33.0 RDW 15.5 Plt Count 236 MPV 7.6 Neutrophils % 55.1 Lymphocytes % 35.6 Monocytes % 5.5 Eosinophils % 3.1 Basophils % 0.7 Sodium 138 Potassium 3.6 Chloride 107 Carbon Dioxide 25.1 Anion Gap 9.5 BUN 10 Creatinine 0.6 Est GFR ( Amer) TNP Est GFR (Non-Af Amer) TNP BUN/Creatinine Ratio 16.7 Glucose 79 Calcium 8.0 L Urine Source Urine Color Urine Clarity Urine pH Ur Specific [place] Urine Protein Urine Glucose (UA) Urine Ketones Urine Blood Urine Nitrate Urine Bilirubin Urine Urobilinogen Ur Leukocyte Esterase Urine RBC Urine WBC Ur Epithelial Cells Urine Bacteria Hepatitis A IgM Ab Negative Hep Bs Antigen Negative Hep B Core IgM Ab Negative Hepatitis C Antibody 0.2 07/16/18 05:05 WBC RBC Hgb Hct MCV MCH MCHC Differential RDW Plt Count MPV Neutrophils % Lymphocytes % Monocytes % Eosinophils % Basophils % Sodium Potassium Chloride Carbon Dioxide Anion Gap BUN Creatinine Est GFR ( Amer) Est GFR (Non-Af Amer) BUN/Creatinine Ratio Glucose Calcium Urine Source RANDOM Urine Color YELLOW Urine Clarity HAZY Urine pH 6.0 Ur Specific [place] 1.010 Urine Protein NEGATIVE Urine Glucose (UA) NEGATIVE Urine Ketones NEGATIVE Urine Blood TRACE Urine Nitrate NEGATIVE Urine Bilirubin NEGATIVE Urine Urobilinogen 0.2 Ur Leukocyte Esterase LARGE H Urine RBC 0-2 Urine WBC 6-10 H Ur Epithelial Cells FEW Urine Bacteria FEW Hepatitis A IgM Ab Hep Bs Antigen Hep B Core IgM Ab Hepatitis C Antibody Home Medication Medication Instructions Recorded Type Acetaminophen [Tylenol] 650 mg PO Q4H PRN tab 04/15/18 Rx Alendronate Sodium [Fosamax*] 70 mg PO Q7D tab 04/15/18 Rx Atorvastatin Calcium [Lipitor] 20 mg PO DAILY tab 04/15/18 Rx Calcium Carb/Vit D 500mg/200U 1 tab PO DAILY tab 04/15/18 Rx [Oscal w/Vitamin D] Dicyclomine [Bentyl 10 Mg Cap*] 10 mg PO TID cap 04/15/18 Rx Docusate Sodium [Colace] 500 mg PO DAILY sgl 04/15/18 Rx Donepezil Hcl [Aricept] 5 mg PO HS tab 04/15/18 Rx Glimepiride [Amaryl*] 1 mg PO QDAC tab 04/15/18 Rx Ketotifen 0.025% Ophth Soln 1 drop EACH EYE DAILY drops 04/15/18 Rx [Zaditor 0.025% Ophth Soln] Lactobacillus Rhamnosus GG 15B 1 each PO DAILY cap.sprink 04/15/18 Rx [Culturelle 15B] Loratadine [Claritin] 10 mg PO DAILY tab 04/15/18 Rx Magnesium Hydroxide [Milk of 30 ml PO HS PRN udc 04/15/18 Rx Magnesia] Memantine [Namenda] 5 mg PO TID tab 04/15/18 Rx Multivitamin [Theragran] 1 tab PO DAILY tab 04/15/18 Rx Oxybutynin Chloride [Ditropan*] 5 mg PO DAILY tab 04/15/18 Rx Pantoprazole [Protonix] 40 mg PO QDAC ect 04/15/18 Rx Sertraline [Zoloft] 25 mg PO DAILY tab 04/15/18 Rx Verapamil HCl SR [Isoptin Sr*] [address] 04/15/18 Rx Al Hyd/Mg Hyd/Simethicone [Maalox] 30 ml PO Q4HR PRN 07/14/18 History Ascorbic Acid [Vitamin C] 500 mg PO DAILY 07/14/18 History Cyanocobalamin [Vitamin B12] 1,000 mcg PO DAILY 07/14/18 History Ibuprofen [Motrin*] 400 mg PO Q6HR 07/14/18 History Loperamide [Imodium] 2 mg PO Q8HR PRN 07/14/18 History QUEtiapine Fumarate [SEROquel] 25 mg PO BID 07/14/18 History traMADol HCl [Ultram*] 50 mg PO Q12HR PRN 07/14/18 History Current Medications Generic Name Dose Route Start Last Admin Trade Name Freq PRN Reason Stop Dose Admin Acetaminophen 650 mg 07/15/18 07:55 Tylenol PO 09/13/18 07:54 Q4H PRN Mild Pain / Temp above 100 Al Hydrox/Mg Hydrox/Simethicone 30 ml 07/15/18 07:55 Maalox PO 09/13/18 07:54 Q4HR PRN GI DISTRESS Alendronate Sodium 70 mg 07/16/18 06:30 07/16/18 06:34 Fosamax PO 09/14/18 06:29 Not Given Q7D [facility] Ascorbic Acid 500 mg 07/15/18 09:00 07/16/18 11:36 Vitamin C PO 09/13/18 08:59 Not Given DAILY [facility] Atorvastatin Calcium 20 mg 07/15/18 09:00 07/16/18 11:36 Lipitor PO 09/13/18 08:59 Not Given DAILY [facility] Protocol Calcium/Vitamin D 1 tab 07/15/18 09:00 07/16/18 11:37 Oscal W/Vitamin D PO 09/13/18 08:59 Not Given DAILY [facility] Cyanocobalamin 1,000 mcg 07/15/18 09:00 07/16/18 11:37 Vitamin B12 PO 09/13/18 08:59 Not Given DAILY [facility] Dicyclomine HCl 10 mg 07/15/18 09:00 07/16/18 11:37 Bentyl PO 09/13/18 08:59 Not Given TID [facility] Docusate Sodium 500 mg 07/15/18 09:00 07/16/18 11:37 Colace PO 09/13/18 08:59 Not Given DAILY [facility] Donepezil HCl 5 mg 07/15/18 21:00 07/15/18 20:54 Aricept PO 09/13/18 20:59 5 mg HS [facility] Administration Enoxaparin Sodium 80 mg 07/15/18 09:00 07/16/18 11:37 Lovenox SUBQ 09/13/18 08:59 Not Given Q12HR [facility] Furosemide 40 mg 07/15/18 09:00 07/16/18 11:39 Lasix IVP 09/13/18 08:59 Not Given DAILY [facility] Glimepiride 1 mg 07/16/18 07:30 07/16/18 06:34 Amaryl PO 09/14/18 07:29 Not Given QDAC [facility] Piperacillin Sod/Tazobactam 50 mls @ 100 mls/hr 07/15/18 05:00 07/16/18 12:42 Sod 3.375 gm/ Sodium Chloride IV 09/13/18 04:59 100 mls/hr Q8HR JEANETTE Administration Ibuprofen 400 mg 07/15/18 12:00 07/16/18 12:41 Motrin PO 09/13/18 11:59 400 mg Q6HR JEANETTE Administration Ketotifen Fumarate 1 drop 07/15/18 09:00 07/16/18 12:41 Zaditor 0.025% Ophth Soln EACH EYE 09/13/18 08:59 1 drop DAILY JEANETTE Administration Lactobacillus Rhamnosus 1 each 07/15/18 09:00 07/16/18 11:37 Culturelle 15b PO 09/13/18 08:59 Not Given DAILY JEANETTE Loperamide HCl 2 mg 07/15/18 07:55 Imodium PO 09/13/18 07:54 Q8HR PRN Diarrhea Loratadine 10 mg 07/15/18 09:00 07/16/18 11:38 Claritin PO 09/13/18 08:59 Not Given DAILY JEANETTE Magnesium Hydroxide 30 ml 07/15/18 07:55 Milk Of Magnesia PO 09/13/18 07:54 HS PRN Constipation Memantine 5 mg 07/15/18 09:00 07/16/18 11:38 Namenda PO 09/13/18 08:59 Not Given TID [facility] Miscellaneous 1 ea 07/15/18 00:45 Lovenox Subq Per Pharmacy [facility] 09/13/18 00:44 PRN JEANETTE Protocol Multivitamins/Vitamin C 1 tab 07/15/18 09:00 07/16/18 11:38 Theragran PO 09/13/18 08:59 Not Given DAILY [facility] Oxybutynin Chloride 5 mg 07/15/18 09:00 07/16/18 11:38 Ditropan PO 09/13/18 08:59 Not Given DAILY JEANETTE Pantoprazole Sodium 40 mg 07/16/18 07:30 07/16/18 06:34 Protonix PO 09/14/18 07:29 Not Given QDAC [facility] Quetiapine Fumarate 25 mg 07/15/18 17:00 07/16/18 11:38 Seroquel PO 09/13/18 16:59 Not Given BID JEANETTE Protocol Sertraline HCl 25 mg 07/15/18 15:00 07/16/18 11:38 Zoloft PO 09/13/18 14:59 Not Given DAILY JEANETTE Protocol Tramadol HCl 50 mg 07/15/18 07:55 07/15/18 11:07 Ultram PO 09/13/18 07:54 50 mg Q12HR PRN Administration Pain (Moderate) Verapamil HCl 180 mg 07/15/18 09:00 07/16/18 11:38 Isoptin Sr PO 09/13/18 08:59 Not Given DAILY JEANETTE Review of Systems: A 12 point ROS was reviewed with the pertinent positive and negatives noted in the HPI. Poor historian not given any appropriate history Social History Smoking Status Never smoker Drug Use No Alcohol Use No Family Medical History Unknown Physical Exam: General: Comfortable not in acute distress. HEENT: Head: Normocytic, atraumatic. Oral cavity: Moist, pink tongue. Eyes: Pupil PERRLA. EOMI. Neck: Supple, no JVD. No use of accessory neck muscles Cardio: S1 and S2 within normal with regular rhythm no murmur no gallop Respiratory: CTAP Abdominal: Soft, nontender nondistended bowel sounds present Genital/Urinary: Deferred Extremities: No cyanosis, no clubbing no edema swelling and tenderness of her left leg Neurological: Alert, awake, oriented 3. Assessment: 1. Cellulitis of left leg. 2. Diabetes mellitus type 2. 3. History of rectal CA with metastasis. 4. Hypertension. 5. Dementia. Plan: Change antibiotic to Rocephin. Thank you, Dr. Bhatia for involving me in taking care of this patient. Signed, Vinh Boswell M.D. [id number]
--- NOTE | 2018-07-16 15:17 | General Progress Note ---
Subjective - Review of Systems Service Date: 07/16/18 Events since last encounter: ultrasound arterial and venous not diagnositic as patient does not cooperate with exam suggest DVT prophylaxis Objective - Results Result Diagrams: 07/16/18 04:55 07/16/18 04:55 Recent Labs: Laboratory Last Values WBC 6.3 Th/cmm (4.8-10.8) 07/16/18 04:55 RBC 3.39 Mil/cmm (3.80-5.20) L 07/16/18 04:55 Hgb 10.7 gm/dL (12-16) L 07/16/18 04:55 Hct 32.4 % (41.0-60) L 07/16/18 04:55 MCV 95.6 fl (81-100) 07/16/18 04:55 MCH 31.5 pg (27.0-31.0) H 07/16/18 04:55 MCHC Differential 33.0 pg (28.0-36.0) 07/16/18 04:55 RDW 15.5 % (11.5-20.0) 07/16/18 04:55 Plt Count 236 Th/cmm (150-400) 07/16/18 04:55 MPV 7.6 fl 07/16/18 04:55 Neutrophils % 55.1 % (40.0-80.0) 07/16/18 04:55 Lymphocytes % 35.6 % (20.0-50.0) 07/16/18 04:55 Monocytes % 5.5 % (2.0-10.0) 07/16/18 04:55 Eosinophils % 3.1 % (0.0-5.0) 07/16/18 04:55 Basophils % 0.7 % (0.0-2.0) 07/16/18 04:55 D-Dimer 4000 ng/mL (100-400) H 07/15/18 05:35 Sodium 138 mEq/L (136-145) 07/16/18 04:55 Potassium 3.6 mEq/L (3.5-5.1) 07/16/18 04:55 Chloride 107 mEq/L (98-107) 07/16/18 04:55 Carbon Dioxide 25.1 mEq/L (21.0-31.0) 07/16/18 04:55 Anion Gap 9.5 (7.0-16.0) 07/16/18 04:55 BUN 10 mg/dL (7-25) 07/16/18 04:55 Creatinine 0.6 mg/dL (0.6-1.2) 07/16/18 04:55 Est GFR ( Amer) TNP 07/16/18 04:55 Est GFR (Non-Af Amer) TNP 07/16/18 04:55 BUN/Creatinine Ratio 16.7 07/16/18 04:55 Glucose 79 mg/dL (70-105) 07/16/18 04:55 Whole Bld Lactic Acid 1.27 mmol/L (0.60-1.99) 07/14/18 21:00 Calcium 8.0 mg/dL (8.6-10.3) L 07/16/18 04:55 Total Bilirubin 0.4 mg/dL (0.3-1.0) 07/14/18 21:00 AST 15 U/L (13-39) 07/14/18 21:00 ALT 7 U/L (7-52) 07/14/18 21:00 Alkaline Phosphatase 55 U/L (34-104) 07/14/18 21:00 Troponin I 0.01 ng/mL (0.01-0.05) 07/14/18 21:00 Total Protein 6.4 gm/dL (6.0-8.3) 07/14/18 21:00 Albumin 3.0 gm/dL (3.7-5.3) L 07/14/18 21:00 Globulin 3.4 gm/dL 07/14/18 21:00 Albumin/Globulin Ratio 0.9 (1.0-1.8) L 07/14/18 21:00 Triglycerides 54 mg/dL (<150) 07/15/18 05:35 Cholesterol 87 mg/dL (<200) 07/15/18 05:35 LDL Cholesterol Direct 31 mg/dL (75-193) L 07/15/18 05:35 HDL Cholesterol 39 mg/dL (23-92) 07/15/18 05:35 TSH 2.64 uIU/ml (0.34-5.60) 07/15/18 05:35 Urine Source RANDOM 07/16/18 05:05 Urine Color YELLOW 07/16/18 05:05 Urine Clarity HAZY (CLEAR) 07/16/18 05:05 Urine pH 6.0 (4.6 - 8.0) 07/16/18 05:05 Ur Specific [place] 1.010 (1.005-1.030) 07/16/18 05:05 Urine Protein NEGATIVE mg/dL (NEGATIVE) 07/16/18 05:05 Urine Glucose (UA) NEGATIVE mg/dL (NEGATIVE) 07/16/18 05:05 Urine Ketones NEGATIVE mg/dL (NEGATIVE) 07/16/18 05:05 Urine Blood TRACE (NEGATIVE) 07/16/18 05:05 Urine Nitrate NEGATIVE (NEGATIVE) 07/16/18 05:05 Urine Bilirubin NEGATIVE (NEGATIVE) 07/16/18 05:05 Urine Urobilinogen 0.2 E.U./dL (0.2 - 1.0) 07/16/18 05:05 Ur Leukocyte Esterase LARGE (NEGATIVE) H 07/16/18 05:05 Urine RBC 0-2 /hpf (0-5) 07/16/18 05:05 Urine WBC 6-10 /hpf (0-5) H 07/16/18 05:05 Ur Epithelial Cells FEW /lpf (FEW) 07/16/18 05:05 Urine Bacteria FEW /hpf (NONE SEEN) 07/16/18 05:05 Hepatitis A IgM Ab Negative (Negative) 07/15/18 05:35 Hep Bs Antigen Negative (Negative) 07/15/18 05:35 Hep B Core IgM Ab Negative (Negative) 07/15/18 05:35 Hepatitis C Antibody 0.2 s/co ratio (0.0-0.9) 07/15/18 05:35 HIV 1&2 Antibody Screen NEGATIVE (NEG) 07/15/18 05:35 - Physical Exam Vitals and I&O: Vital Signs Temp 98.1 F 07/16/18 15:02 Pulse 73 07/16/18 15:02 Resp 18 07/16/18 15:02 BP 126/46 07/16/18 15:02 Pulse Ox 95 07/16/18 15:02 Intake & Output 07/15/18 07/16/18 07/16/18 18:59 06:59 18:59 Intake Total 650 100 Balance 650 100 Weight (lbs) 81.647 kg 65.317 kg Intake: Intake, IV Amount 50 100 Piperacillin Sodium/ 50 100 Tazobact 3.375 gm In Sodium Chloride 0.9% 50 ml @ 100 mls/hr IV Q8HR [facility] Rx#:[id number] Oral 600 Other: # Voids 2 3 # Bowel Movements 0 Weight Source Bedscale Bedscale Active Medications: Current Medications Acetaminophen (Tylenol) 650 mg PO Q4H PRN PRN Reason: Mild Pain / Temp above 100 Stop: 09/13/18 07:54 Al Hydrox/Mg Hydrox/Simethicone (Maalox) 30 ml PO Q4HR PRN PRN Reason: GI DISTRESS Stop: 09/13/18 07:54 Alendronate Sodium (Fosamax) 70 mg PO Q7D [facility] Stop: 09/14/18 06:29 Last Admin: 07/16/18 06:34 Dose: Not Given Ascorbic Acid (Vitamin C) 500 mg PO DAILY [facility] Stop: 09/13/18 08:59 Last Admin: 07/16/18 11:36 Dose: Not Given Atorvastatin Calcium (Lipitor) 20 mg PO DAILY [facility]; Protocol Stop: 09/13/18 08:59 Last Admin: 07/16/18 11:36 Dose: Not Given Calcium/Vitamin D (Oscal W/Vitamin D) 1 tab PO DAILY [facility] Stop: 09/13/18 08:59 Last Admin: 07/16/18 11:37 Dose: Not Given Cyanocobalamin (Vitamin B12) 1,000 mcg PO DAILY [facility] Stop: 09/13/18 08:59 Last Admin: 07/16/18 11:37 Dose: Not Given Dicyclomine HCl (Bentyl) 10 mg PO TID [facility] Stop: 09/13/18 08:59 Last Admin: 07/16/18 14:56 Dose: Not Given Docusate Sodium (Colace) 500 mg PO DAILY [facility] Stop: 09/13/18 08:59 Last Admin: 07/16/18 11:37 Dose: Not Given Donepezil HCl (Aricept) 5 mg PO HS [facility] Stop: 09/13/18 20:59 Last Admin: 07/15/18 20:54 Dose: 5 mg Enoxaparin Sodium (Lovenox) 80 mg SUBQ Q12HR [facility] Stop: 09/13/18 08:59 Last Admin: 07/16/18 11:37 Dose: Not Given Furosemide (Lasix) 40 mg IVP DAILY [facility] Stop: 09/13/18 08:59 Last Admin: 07/16/18 11:39 Dose: Not Given Glimepiride (Amaryl) 1 mg PO QDAC [facility] Stop: 09/14/18 07:29 Last Admin: 07/16/18 06:34 Dose: Not Given Ceftriaxone Sodium 1 gm/ (Dextrose) 50 mls @ 100 mls/hr IV Q24H [facility] Stop: 09/14/18 14:59 Last Admin: 07/16/18 15:15 Dose: 100 mls/hr Ibuprofen (Motrin) 400 mg PO Q6HR [facility] Stop: 09/13/18 11:59 Last Admin: 07/16/18 12:41 Dose: 400 mg Ketotifen Fumarate (Zaditor 0.025% Oph Soln) 1 drop EACH EYE DAILY [facility] Stop: 09/13/18 08:59 Last Admin: 07/16/18 12:41 Dose: 1 drop Lactobacillus Rhamnosus (Culturelle 15b) 1 each PO DAILY [facility] Stop: 09/13/18 08:59 Last Admin: 07/16/18 11:37 Dose: Not Given Loperamide HCl (Imodium) 2 mg PO Q8HR PRN PRN Reason: Diarrhea Stop: 09/13/18 07:54 Loratadine (Claritin) 10 mg PO DAILY [facility] Stop: 09/13/18 08:59 Last Admin: 07/16/18 11:38 Dose: Not Given Magnesium Hydroxide (Milk Of Magnesia) 30 ml PO HS PRN PRN Reason: Constipation Stop: 09/13/18 07:54 Memantine (Namenda) 5 mg PO TID [facility] Stop: 09/13/18 08:59 Last Admin: 07/16/18 14:56 Dose: Not Given Miscellaneous (Lovenox Subq Per Pharmacy) 1 [facility] PRN [facility]; Protocol Stop: 09/13/18 00:44 Multivitamins/Vitamin C (Theragran) 1 tab PO DAILY [facility] Stop: 09/13/18 08:59 Last Admin: 07/16/18 11:38 Dose: Not Given Oxybutynin Chloride (Ditropan) 5 mg PO DAILY [facility] Stop: 09/13/18 08:59 Last Admin: 07/16/18 11:38 Dose: Not Given Pantoprazole Sodium (Protonix) 40 mg PO QDAC [facility] Stop: 09/14/18 07:29 Last Admin: 07/16/18 06:34 Dose: Not Given Quetiapine Fumarate (Seroquel) 25 mg PO BID [facility]; Protocol Stop: 09/13/18 16:59 Last Admin: 07/16/18 11:38 Dose: Not Given Sertraline HCl (Zoloft) 25 mg PO DAILY [facility]; Protocol Stop: 09/13/18 14:59 Last Admin: 07/16/18 11:38 Dose: Not Given Tramadol HCl (Ultram) 50 mg PO Q12HR PRN PRN Reason: Pain (Moderate) Stop: 09/13/18 07:54 Last Admin: 07/15/18 11:07 Dose: 50 mg Verapamil HCl (Isoptin Sr) 180 mg PO DAILY [facility] Stop: 09/13/18 08:59 Last Admin: 07/16/18 11:38 Dose: Not Given
--- NOTE | 2018-07-16 16:21 | Consultation ---
DATE OF CONSULTATION: 07/15/2018 VASCULAR CONSULTATION REFERRING PHYSICIAN: Dr. Bhatia. REASON FOR CONSULTATION: Swelling, left leg. Thank you for referring this patient to me. HISTORY OF PRESENT ILLNESS: This is an 87-year-old female admitted through the ER because of swelling of the left leg, apparently present for the last 1 to 2 weeks. There is accompanying cellulitis. PAST MEDICAL HISTORY: Significant for rectal carcinoma, status post radiation; also dementia; diabetes mellitus; hypertension; hyperlipidemia and ovarian cancer. LABORATORY STUDIES: Show hemoglobin slightly low at 9.6. D-dimer high at 4000. Rest of the lab tests are normal. PHYSICAL EXAMINATION: The patient does not speak Hebrew and very uncooperative and keeps moving around her leg on examination. There is swelling from the knee down on the left side with some cellulitis and I am unable to check pedal pulses because of the patient's poor cooperation. She has a ventral hernia from previous surgery. She does not appear to be in distress however. LABORATORY AND DIAGNOSTIC DATA: Arterial study was poorly done because of the patient's uncooperation as is the venous study. ASSESSMENT AND PLAN: In the meantime, the patient is given antibiotics and Lovenox. The patient has been seen by laborer rags as well as an ID energy consultant. No vascular intervention is necessary, most that can be given to this patient is probably anticoagulation for possible DVT. JOB# [id number]
--- NOTE | 2018-07-16 16:49 | Internal Medicine Prog Note ---
Internal Medicine Objective - Results Result Diagrams: 07/16/18 04:55 07/16/18 04:55 Recent Labs: Laboratory Last Values WBC 6.3 Th/cmm (4.8-10.8) 07/16/18 04:55 RBC 3.39 Mil/cmm (3.80-5.20) L 07/16/18 04:55 Hgb 10.7 gm/dL (12-16) L 07/16/18 04:55 Hct 32.4 % (41.0-60) L 07/16/18 04:55 MCV 95.6 fl (81-100) 07/16/18 04:55 MCH 31.5 pg (27.0-31.0) H 07/16/18 04:55 MCHC Differential 33.0 pg (28.0-36.0) 07/16/18 04:55 RDW 15.5 % (11.5-20.0) 07/16/18 04:55 Plt Count 236 Th/cmm (150-400) 07/16/18 04:55 MPV 7.6 fl 07/16/18 04:55 Neutrophils % 55.1 % (40.0-80.0) 07/16/18 04:55 Lymphocytes % 35.6 % (20.0-50.0) 07/16/18 04:55 Monocytes % 5.5 % (2.0-10.0) 07/16/18 04:55 Eosinophils % 3.1 % (0.0-5.0) 07/16/18 04:55 Basophils % 0.7 % (0.0-2.0) 07/16/18 04:55 D-Dimer 4000 ng/mL (100-400) H 07/15/18 05:35 Sodium 138 mEq/L (136-145) 07/16/18 04:55 Potassium 3.6 mEq/L (3.5-5.1) 07/16/18 04:55 Chloride 107 mEq/L (98-107) 07/16/18 04:55 Carbon Dioxide 25.1 mEq/L (21.0-31.0) 07/16/18 04:55 Anion Gap 9.5 (7.0-16.0) 07/16/18 04:55 BUN 10 mg/dL (7-25) 07/16/18 04:55 Creatinine 0.6 mg/dL (0.6-1.2) 07/16/18 04:55 Est GFR ( Amer) TNP 07/16/18 04:55 Est GFR (Non-Af Amer) TNP 07/16/18 04:55 BUN/Creatinine Ratio 16.7 07/16/18 04:55 Glucose 79 mg/dL (70-105) 07/16/18 04:55 Whole Bld Lactic Acid 1.27 mmol/L (0.60-1.99) 07/14/18 21:00 Calcium 8.0 mg/dL (8.6-10.3) L 07/16/18 04:55 Total Bilirubin 0.4 mg/dL (0.3-1.0) 07/14/18 21:00 AST 15 U/L (13-39) 07/14/18 21:00 ALT 7 U/L (7-52) 07/14/18 21:00 Alkaline Phosphatase 55 U/L (34-104) 07/14/18 21:00 Troponin I 0.01 ng/mL (0.01-0.05) 07/14/18 21:00 Total Protein 6.4 gm/dL (6.0-8.3) 07/14/18 21:00 Albumin 3.0 gm/dL (3.7-5.3) L 07/14/18 21:00 Globulin 3.4 gm/dL 07/14/18 21:00 Albumin/Globulin Ratio 0.9 (1.0-1.8) L 07/14/18 21:00 Triglycerides 54 mg/dL (<150) 07/15/18 05:35 Cholesterol 87 mg/dL (<200) 07/15/18 05:35 LDL Cholesterol Direct 31 mg/dL (75-193) L 07/15/18 05:35 HDL Cholesterol 39 mg/dL (23-92) 07/15/18 05:35 TSH 2.64 uIU/ml (0.34-5.60) 07/15/18 05:35 Urine Source RANDOM 07/16/18 05:05 Urine Color YELLOW 07/16/18 05:05 Urine Clarity HAZY (CLEAR) 07/16/18 05:05 Urine pH 6.0 (4.6 - 8.0) 07/16/18 05:05 Ur Specific [place] 1.010 (1.005-1.030) 07/16/18 05:05 Urine Protein NEGATIVE mg/dL (NEGATIVE) 07/16/18 05:05 Urine Glucose (UA) NEGATIVE mg/dL (NEGATIVE) 07/16/18 05:05 Urine Ketones NEGATIVE mg/dL (NEGATIVE) 07/16/18 05:05 Urine Blood TRACE (NEGATIVE) 07/16/18 05:05 Urine Nitrate NEGATIVE (NEGATIVE) 07/16/18 05:05 Urine Bilirubin NEGATIVE (NEGATIVE) 07/16/18 05:05 Urine Urobilinogen 0.2 E.U./dL (0.2 - 1.0) 07/16/18 05:05 Ur Leukocyte Esterase LARGE (NEGATIVE) H 07/16/18 05:05 Urine RBC 0-2 /hpf (0-5) 07/16/18 05:05 Urine WBC 6-10 /hpf (0-5) H 07/16/18 05:05 Ur Epithelial Cells FEW /lpf (FEW) 07/16/18 05:05 Urine Bacteria FEW /hpf (NONE SEEN) 07/16/18 05:05 Hepatitis A IgM Ab Negative (Negative) 07/15/18 05:35 Hep Bs Antigen Negative (Negative) 07/15/18 05:35 Hep B Core IgM Ab Negative (Negative) 07/15/18 05:35 Hepatitis C Antibody 0.2 s/co ratio (0.0-0.9) 07/15/18 05:35 HIV 1&2 Antibody Screen NEGATIVE (NEG) 07/15/18 05:35 - Physical Exam Vitals and I&O: Vital Signs Temp 98.1 F 07/16/18 15:02 Pulse 73 07/16/18 15:02 Resp 18 07/16/18 15:02 BP 126/46 07/16/18 15:02 Pulse Ox 95 07/16/18 15:02 Intake & Output 07/15/18 07/16/18 07/16/18 18:59 06:59 18:59 Intake Total 650 100 Balance 650 100 Weight (lbs) 81.647 kg 65.317 kg Intake: Intake, IV Amount 50 100 Piperacillin Sodium/ 50 100 Tazobact 3.375 gm In Sodium Chloride 0.9% 50 ml @ 100 mls/hr IV Q8HR [facility] Rx#:[id number] Oral 600 Other: # Voids 2 3 # Bowel Movements 0 Weight Source Bedscale Bedscale Active Medications: Current Medications Acetaminophen (Tylenol) 650 mg PO Q4H PRN PRN Reason: Mild Pain / Temp above 100 Stop: 09/13/18 07:54 Al Hydrox/Mg Hydrox/Simethicone (Maalox) 30 ml PO Q4HR PRN PRN Reason: GI DISTRESS Stop: 09/13/18 07:54 Alendronate Sodium (Fosamax) 70 mg PO Q7D [facility] Stop: 09/14/18 06:29 Last Admin: 07/16/18 06:34 Dose: Not Given Ascorbic Acid (Vitamin C) 500 mg PO DAILY [facility] Stop: 09/13/18 08:59 Last Admin: 07/16/18 11:36 Dose: Not Given Atorvastatin Calcium (Lipitor) 20 mg PO DAILY [facility]; Protocol Stop: 09/13/18 08:59 Last Admin: 07/16/18 11:36 Dose: Not Given Calcium/Vitamin D (Oscal W/Vitamin D) 1 tab PO DAILY [facility] Stop: 09/13/18 08:59 Last Admin: 07/16/18 11:37 Dose: Not Given Cyanocobalamin (Vitamin B12) 1,000 mcg PO DAILY [facility] Stop: 09/13/18 08:59 Last Admin: 07/16/18 11:37 Dose: Not Given Dicyclomine HCl (Bentyl) 10 mg PO TID [facility] Stop: 09/13/18 08:59 Last Admin: 07/16/18 14:56 Dose: Not Given Docusate Sodium (Colace) 500 mg PO DAILY [facility] Stop: 09/13/18 08:59 Last Admin: 07/16/18 11:37 Dose: Not Given Donepezil HCl (Aricept) 5 mg PO HS [facility] Stop: 09/13/18 20:59 Last Admin: 07/15/18 20:54 Dose: 5 mg Enoxaparin Sodium (Lovenox) 80 mg SUBQ Q12HR [facility] Stop: 09/13/18 08:59 Last Admin: 07/16/18 11:37 Dose: Not Given Furosemide (Lasix) 40 mg IVP DAILY [facility] Stop: 09/13/18 08:59 Last Admin: 07/16/18 11:39 Dose: Not Given Glimepiride (Amaryl) 1 mg PO QDAC [facility] Stop: 09/14/18 07:29 Last Admin: 07/16/18 06:34 Dose: Not Given Ceftriaxone Sodium 1 gm/ (Dextrose) 50 mls @ 100 mls/hr IV Q24H [facility] Stop: 09/14/18 14:59 Last Admin: 07/16/18 15:15 Dose: 100 mls/hr Dextrose/Sodium Chloride (D5-0.9%Ns) 1,000 mls @ 50 mls/hr IV .Q20H [facility] Stop: 09/14/18 15:16 Ibuprofen (Motrin) 400 mg PO Q6HR [facility] Stop: 09/13/18 11:59 Last Admin: 07/16/18 12:41 Dose: 400 mg Ketotifen Fumarate (Zaditor 0.025% Oph Soln) 1 drop EACH EYE DAILY [facility] Stop: 09/13/18 08:59 Last Admin: 07/16/18 12:41 Dose: 1 drop Lactobacillus Rhamnosus (Culturelle 15b) 1 each PO DAILY [facility] Stop: 09/13/18 08:59 Last Admin: 07/16/18 11:37 Dose: Not Given Loperamide HCl (Imodium) 2 mg PO Q8HR PRN PRN Reason: Diarrhea Stop: 09/13/18 07:54 Loratadine (Claritin) 10 mg PO DAILY [facility] Stop: 09/13/18 08:59 Last Admin: 07/16/18 11:38 Dose: Not Given Magnesium Hydroxide (Milk Of Magnesia) 30 ml PO HS PRN PRN Reason: Constipation Stop: 09/13/18 07:54 Memantine (Namenda) 5 mg PO TID [facility] Stop: 09/13/18 08:59 Last Admin: 07/16/18 14:56 Dose: Not Given Miscellaneous (Lovenox Subq Per Pharmacy) 1 [facility] PRN [facility]; Protocol Stop: 09/13/18 00:44 Multivitamins/Vitamin C (Theragran) 1 tab PO DAILY [facility] Stop: 09/13/18 08:59 Last Admin: 07/16/18 11:38 Dose: Not Given Oxybutynin Chloride (Ditropan) 5 mg PO DAILY [facility] Stop: 09/13/18 08:59 Last Admin: 07/16/18 11:38 Dose: Not Given Pantoprazole Sodium (Protonix) 40 mg PO QDAC [facility] Stop: 09/14/18 07:29 Last Admin: 07/16/18 06:34 Dose: Not Given Quetiapine Fumarate (Seroquel) 25 mg PO BID [facility]; Protocol Stop: 09/13/18 16:59 Last Admin: 07/16/18 11:38 Dose: Not Given Sertraline HCl (Zoloft) 25 mg PO DAILY [facility]; Protocol Stop: 09/13/18 14:59 Last Admin: 07/16/18 11:38 Dose: Not Given Tramadol HCl (Ultram) 50 mg PO Q12HR PRN PRN Reason: Pain (Moderate) Stop: 09/13/18 07:54 Last Admin: 07/15/18 11:07 Dose: 50 mg Verapamil HCl (Isoptin Sr) 180 mg PO DAILY [facility] Stop: 09/13/18 08:59 Last Admin: 07/16/18 11:38 Dose: Not Given
[2018-07-16] MEDS: D5-0.9%NS 1,000 ML IV SCH (17:19)
[2018-07-17] MEDS: Pantoprazole 40 mg EC Tab PO SCH (06:34)
[2018-07-17] MEDS: Enoxaparin 80 mg/0.8 mL 0.8mL Syr SUBQ SCH ×2 (09:24→21:12)
[2018-07-17] MEDS: Atorvastatin Calcium 10 MG TAB PO SCH (09:26)
[2018-07-17] MEDS: Calcium Carb/Vit D 500 mg/200 U Tab PO SCH (09:27)
[2018-07-17] MEDS: Dicyclomine 10 mg Cap PO SCH ×3 (09:29→21:13)
[2018-07-17] MEDS: Lactobacillus Rhamnosus GG 15 Billion CFU CAP.SPRINK PO SCH (09:30)
[2018-07-17] MEDS: Multivitamin Tab PO SCH (09:30)
[2018-07-17] MEDS: VERAPAMIL HCL 180 MG PO SCH (09:31)
--- NOTE | 2018-07-17 11:14 | General Progress Note ---
Subjective - Review of Systems Service Date: 07/17/18 Events since last encounter: redressed, incision healing keep dry until sutures removed in 10 days Objective - Results Result Diagrams: 07/16/18 04:55 07/16/18 04:55 Recent Labs: Laboratory Last Values WBC 6.3 Th/cmm (4.8-10.8) 07/16/18 04:55 RBC 3.39 Mil/cmm (3.80-5.20) L 07/16/18 04:55 Hgb 10.7 gm/dL (12-16) L 07/16/18 04:55 Hct 32.4 % (41.0-60) L 07/16/18 04:55 MCV 95.6 fl (81-100) 07/16/18 04:55 MCH 31.5 pg (27.0-31.0) H 07/16/18 04:55 MCHC Differential 33.0 pg (28.0-36.0) 07/16/18 04:55 RDW 15.5 % (11.5-20.0) 07/16/18 04:55 Plt Count 236 Th/cmm (150-400) 07/16/18 04:55 MPV 7.6 fl 07/16/18 04:55 Neutrophils % 55.1 % (40.0-80.0) 07/16/18 04:55 Lymphocytes % 35.6 % (20.0-50.0) 07/16/18 04:55 Monocytes % 5.5 % (2.0-10.0) 07/16/18 04:55 Eosinophils % 3.1 % (0.0-5.0) 07/16/18 04:55 Basophils % 0.7 % (0.0-2.0) 07/16/18 04:55 D-Dimer 4000 ng/mL (100-400) H 07/15/18 05:35 Sodium 138 mEq/L (136-145) 07/16/18 04:55 Potassium 3.6 mEq/L (3.5-5.1) 07/16/18 04:55 Chloride 107 mEq/L (98-107) 07/16/18 04:55 Carbon Dioxide 25.1 mEq/L (21.0-31.0) 07/16/18 04:55 Anion Gap 9.5 (7.0-16.0) 07/16/18 04:55 BUN 10 mg/dL (7-25) 07/16/18 04:55 Creatinine 0.6 mg/dL (0.6-1.2) 07/16/18 04:55 Est GFR ( Amer) TNP 07/16/18 04:55 Est GFR (Non-Af Amer) TNP 07/16/18 04:55 BUN/Creatinine Ratio 16.7 07/16/18 04:55 Glucose 79 mg/dL (70-105) 07/16/18 04:55 Whole Bld Lactic Acid 1.27 mmol/L (0.60-1.99) 07/14/18 21:00 Calcium 8.0 mg/dL (8.6-10.3) L 07/16/18 04:55 Total Bilirubin 0.4 mg/dL (0.3-1.0) 07/14/18 21:00 AST 15 U/L (13-39) 07/14/18 21:00 ALT 7 U/L (7-52) 07/14/18 21:00 Alkaline Phosphatase 55 U/L (34-104) 07/14/18 21:00 Troponin I 0.01 ng/mL (0.01-0.05) 07/14/18 21:00 Total Protein 6.4 gm/dL (6.0-8.3) 07/14/18 21:00 Albumin 3.0 gm/dL (3.7-5.3) L 07/14/18 21:00 Globulin 3.4 gm/dL 07/14/18 21:00 Albumin/Globulin Ratio 0.9 (1.0-1.8) L 07/14/18 21:00 Triglycerides 54 mg/dL (<150) 07/15/18 05:35 Cholesterol 87 mg/dL (<200) 07/15/18 05:35 LDL Cholesterol Direct 31 mg/dL (75-193) L 07/15/18 05:35 HDL Cholesterol 39 mg/dL (23-92) 07/15/18 05:35 TSH 2.64 uIU/ml (0.34-5.60) 07/15/18 05:35 Urine Source RANDOM 07/16/18 05:05 Urine Color YELLOW 07/16/18 05:05 Urine Clarity HAZY (CLEAR) 07/16/18 05:05 Urine pH 6.0 (4.6 - 8.0) 07/16/18 05:05 Ur Specific [place] 1.010 (1.005-1.030) 07/16/18 05:05 Urine Protein NEGATIVE mg/dL (NEGATIVE) 07/16/18 05:05 Urine Glucose (UA) NEGATIVE mg/dL (NEGATIVE) 07/16/18 05:05 Urine Ketones NEGATIVE mg/dL (NEGATIVE) 07/16/18 05:05 Urine Blood TRACE (NEGATIVE) 07/16/18 05:05 Urine Nitrate NEGATIVE (NEGATIVE) 07/16/18 05:05 Urine Bilirubin NEGATIVE (NEGATIVE) 07/16/18 05:05 Urine Urobilinogen 0.2 E.U./dL (0.2 - 1.0) 07/16/18 05:05 Ur Leukocyte Esterase LARGE (NEGATIVE) H 07/16/18 05:05 Urine RBC 0-2 /hpf (0-5) 07/16/18 05:05 Urine WBC 6-10 /hpf (0-5) H 07/16/18 05:05 Ur Epithelial Cells FEW /lpf (FEW) 07/16/18 05:05 Urine Bacteria FEW /hpf (NONE SEEN) 07/16/18 05:05 Hepatitis A IgM Ab Negative (Negative) 07/15/18 05:35 Hep Bs Antigen Negative (Negative) 07/15/18 05:35 Hep B Core IgM Ab Negative (Negative) 07/15/18 05:35 Hepatitis C Antibody 0.2 s/co ratio (0.0-0.9) 07/15/18 05:35 HIV 1&2 Antibody Screen NEGATIVE (NEG) 07/15/18 05:35 - Physical Exam Vitals and I&O: Vital Signs Temp 96.2 F 07/17/18 08:49 Pulse 76 07/17/18 08:49 Resp 18 07/17/18 08:49 BP 125/63 07/17/18 09:24 Pulse Ox 95 07/17/18 08:49 Intake & Output 07/16/18 07/17/18 07/17/18 18:59 06:59 18:59 Intake Total 300 0 Balance 300 0 Weight (lbs) 64.864 kg 64.864 kg 64.864 kg Intake: Oral 300 0 Other: # Voids 2 3 # Bowel Movements 0 1 Stool Characteristics Soft Brown Weight Source Bedscale Bedscale Bedscale Active Medications: Current Medications Acetaminophen (Tylenol) 650 mg PO Q4H PRN PRN Reason: Mild Pain / Temp above 100 Stop: 09/13/18 07:54 Al Hydrox/Mg Hydrox/Simethicone (Maalox) 30 ml PO Q4HR PRN PRN Reason: GI DISTRESS Stop: 09/13/18 07:54 Alendronate Sodium (Fosamax) 70 mg PO Q7D [facility] Stop: 09/14/18 06:29 Last Admin: 07/16/18 06:34 Dose: Not Given Ascorbic Acid (Vitamin C) 500 mg PO DAILY [facility] Stop: 09/13/18 08:59 Last Admin: 07/17/18 09:26 Dose: Not Given Atorvastatin Calcium (Lipitor) 20 mg PO DAILY [facility]; Protocol Stop: 09/13/18 08:59 Last Admin: 07/17/18 09:26 Dose: Not Given Calcium/Vitamin D (Oscal W/Vitamin D) 1 tab PO DAILY [facility] Stop: 09/13/18 08:59 Last Admin: 07/17/18 09:27 Dose: Not Given Cyanocobalamin (Vitamin B12) 1,000 mcg PO DAILY [facility] Stop: 09/13/18 08:59 Last Admin: 07/17/18 09:29 Dose: Not Given Dicyclomine HCl (Bentyl) 10 mg PO TID [facility] Stop: 09/13/18 08:59 Last Admin: 07/17/18 09:29 Dose: Not Given Docusate Sodium (Colace) 500 mg PO DAILY [facility] Stop: 09/13/18 08:59 Last Admin: 07/17/18 09:29 Dose: Not Given Donepezil HCl (Aricept) 5 mg PO HS [facility] Stop: 09/13/18 20:59 Last Admin: 07/16/18 20:39 Dose: 5 mg Enoxaparin Sodium (Lovenox) 80 mg SUBQ Q12HR [facility] Stop: 09/13/18 08:59 Last Admin: 07/17/18 09:24 Dose: 80 mg Furosemide (Lasix) 40 mg IVP DAILY [facility] Stop: 09/13/18 08:59 Last Admin: 07/17/18 09:24 Dose: 40 mg Glimepiride (Amaryl) 1 mg PO QDAC [facility] Stop: 09/14/18 07:29 Last Admin: 07/17/18 06:33 Dose: Not Given Ceftriaxone Sodium 1 gm/ (Dextrose) 50 mls @ 100 mls/hr IV Q24H [facility] Stop: 09/14/18 14:59 Last Admin: 07/16/18 15:15 Dose: 100 mls/hr Dextrose/Sodium Chloride (D5-0.9%Ns) 1,000 mls @ 50 mls/hr IV .Q20H [facility] Stop: 09/14/18 15:16 Last Admin: 07/16/18 17:19 Dose: 50 mls/hr Ibuprofen (Motrin) 400 mg PO Q6HR [facility] Stop: 09/13/18 11:59 Last Admin: 07/17/18 06:23 Dose: Not Given Ketotifen Fumarate (Zaditor 0.025% Oph Soln) 1 drop EACH EYE DAILY [facility] Stop: 09/13/18 08:59 Last Admin: 07/17/18 09:30 Dose: Not Given Lactobacillus Rhamnosus (Culturelle 15b) 1 each PO DAILY [facility] Stop: 09/13/18 08:59 Last Admin: 07/17/18 09:30 Dose: Not Given Loperamide HCl (Imodium) 2 mg PO Q8HR PRN PRN Reason: Diarrhea Stop: 09/13/18 07:54 Loratadine (Claritin) 10 mg PO DAILY [facility] Stop: 09/13/18 08:59 Last Admin: 07/17/18 09:30 Dose: Not Given Magnesium Hydroxide (Milk Of Magnesia) 30 ml PO HS PRN PRN Reason: Constipation Stop: 09/13/18 07:54 Memantine (Namenda) 5 mg PO TID [facility] Stop: 09/13/18 08:59 Last Admin: 07/17/18 09:30 Dose: Not Given Miscellaneous (Lovenox Subq Per Pharmacy) 1 [facility] PRN [facility]; Protocol Stop: 09/13/18 00:44 Multivitamins/Vitamin C (Theragran) 1 tab PO DAILY [facility] Stop: 09/13/18 08:59 Last Admin: 07/17/18 09:30 Dose: Not Given Oxybutynin Chloride (Ditropan) 5 mg PO DAILY [facility] Stop: 09/13/18 08:59 Last Admin: 07/17/18 09:30 Dose: Not Given Pantoprazole Sodium (Protonix) 40 mg PO QDAC [facility] Stop: 09/14/18 07:29 Last Admin: 07/17/18 06:34 Dose: Not Given Quetiapine Fumarate (Seroquel) 25 mg PO BID [facility]; Protocol Stop: 09/13/18 16:59 Last Admin: 07/17/18 09:30 Dose: Not Given Sertraline HCl (Zoloft) 25 mg PO DAILY [facility]; Protocol Stop: 09/13/18 14:59 Last Admin: 07/17/18 09:31 Dose: Not Given Tramadol HCl (Ultram) 50 mg PO Q12HR PRN PRN Reason: Pain (Moderate) Stop: 09/13/18 07:54 Last Admin: 07/15/18 11:07 Dose: 50 mg Verapamil HCl (Isoptin Sr) 180 mg PO DAILY [facility] Stop: 09/13/18 08:59 Last Admin: 07/17/18 09:31 Dose: Not Given
--- NOTE | 2018-07-17 11:19 | General Progress Note ---
Subjective - Review of Systems Service Date: 07/17/18 Events since last encounter: swelling is less, cellulitis is less cant touch patient, does not speak Hebrew Objective - Results Result Diagrams: 07/16/18 04:55 07/16/18 04:55 Recent Labs: Laboratory Last Values WBC 6.3 Th/cmm (4.8-10.8) 07/16/18 04:55 RBC 3.39 Mil/cmm (3.80-5.20) L 07/16/18 04:55 Hgb 10.7 gm/dL (12-16) L 07/16/18 04:55 Hct 32.4 % (41.0-60) L 07/16/18 04:55 MCV 95.6 fl (81-100) 07/16/18 04:55 MCH 31.5 pg (27.0-31.0) H 07/16/18 04:55 MCHC Differential 33.0 pg (28.0-36.0) 07/16/18 04:55 RDW 15.5 % (11.5-20.0) 07/16/18 04:55 Plt Count 236 Th/cmm (150-400) 07/16/18 04:55 MPV 7.6 fl 07/16/18 04:55 Neutrophils % 55.1 % (40.0-80.0) 07/16/18 04:55 Lymphocytes % 35.6 % (20.0-50.0) 07/16/18 04:55 Monocytes % 5.5 % (2.0-10.0) 07/16/18 04:55 Eosinophils % 3.1 % (0.0-5.0) 07/16/18 04:55 Basophils % 0.7 % (0.0-2.0) 07/16/18 04:55 D-Dimer 4000 ng/mL (100-400) H 07/15/18 05:35 Sodium 138 mEq/L (136-145) 07/16/18 04:55 Potassium 3.6 mEq/L (3.5-5.1) 07/16/18 04:55 Chloride 107 mEq/L (98-107) 07/16/18 04:55 Carbon Dioxide 25.1 mEq/L (21.0-31.0) 07/16/18 04:55 Anion Gap 9.5 (7.0-16.0) 07/16/18 04:55 BUN 10 mg/dL (7-25) 07/16/18 04:55 Creatinine 0.6 mg/dL (0.6-1.2) 07/16/18 04:55 Est GFR ( Amer) TNP 07/16/18 04:55 Est GFR (Non-Af Amer) TNP 07/16/18 04:55 BUN/Creatinine Ratio 16.7 07/16/18 04:55 Glucose 79 mg/dL (70-105) 07/16/18 04:55 Whole Bld Lactic Acid 1.27 mmol/L (0.60-1.99) 07/14/18 21:00 Calcium 8.0 mg/dL (8.6-10.3) L 07/16/18 04:55 Total Bilirubin 0.4 mg/dL (0.3-1.0) 07/14/18 21:00 AST 15 U/L (13-39) 07/14/18 21:00 ALT 7 U/L (7-52) 07/14/18 21:00 Alkaline Phosphatase 55 U/L (34-104) 07/14/18 21:00 Troponin I 0.01 ng/mL (0.01-0.05) 07/14/18 21:00 Total Protein 6.4 gm/dL (6.0-8.3) 07/14/18 21:00 Albumin 3.0 gm/dL (3.7-5.3) L 07/14/18 21:00 Globulin 3.4 gm/dL 07/14/18 21:00 Albumin/Globulin Ratio 0.9 (1.0-1.8) L 07/14/18 21:00 Triglycerides 54 mg/dL (<150) 07/15/18 05:35 Cholesterol 87 mg/dL (<200) 07/15/18 05:35 LDL Cholesterol Direct 31 mg/dL (75-193) L 07/15/18 05:35 HDL Cholesterol 39 mg/dL (23-92) 07/15/18 05:35 TSH 2.64 uIU/ml (0.34-5.60) 07/15/18 05:35 Urine Source RANDOM 07/16/18 05:05 Urine Color YELLOW 07/16/18 05:05 Urine Clarity HAZY (CLEAR) 07/16/18 05:05 Urine pH 6.0 (4.6 - 8.0) 07/16/18 05:05 Ur Specific [place] 1.010 (1.005-1.030) 07/16/18 05:05 Urine Protein NEGATIVE mg/dL (NEGATIVE) 07/16/18 05:05 Urine Glucose (UA) NEGATIVE mg/dL (NEGATIVE) 07/16/18 05:05 Urine Ketones NEGATIVE mg/dL (NEGATIVE) 07/16/18 05:05 Urine Blood TRACE (NEGATIVE) 07/16/18 05:05 Urine Nitrate NEGATIVE (NEGATIVE) 07/16/18 05:05 Urine Bilirubin NEGATIVE (NEGATIVE) 07/16/18 05:05 Urine Urobilinogen 0.2 E.U./dL (0.2 - 1.0) 07/16/18 05:05 Ur Leukocyte Esterase LARGE (NEGATIVE) H 07/16/18 05:05 Urine RBC 0-2 /hpf (0-5) 07/16/18 05:05 Urine WBC 6-10 /hpf (0-5) H 07/16/18 05:05 Ur Epithelial Cells FEW /lpf (FEW) 07/16/18 05:05 Urine Bacteria FEW /hpf (NONE SEEN) 07/16/18 05:05 Hepatitis A IgM Ab Negative (Negative) 07/15/18 05:35 Hep Bs Antigen Negative (Negative) 07/15/18 05:35 Hep B Core IgM Ab Negative (Negative) 07/15/18 05:35 Hepatitis C Antibody 0.2 s/co ratio (0.0-0.9) 07/15/18 05:35 HIV 1&2 Antibody Screen NEGATIVE (NEG) 07/15/18 05:35 - Physical Exam Vitals and I&O: Vital Signs Temp 96.2 F 07/17/18 08:49 Pulse 76 07/17/18 08:49 Resp 18 07/17/18 08:49 BP 125/63 07/17/18 09:24 Pulse Ox 95 07/17/18 08:49 Intake & Output 07/16/18 07/17/18 07/17/18 18:59 06:59 18:59 Intake Total 300 0 Balance 300 0 Weight (lbs) 64.864 kg 64.864 kg 64.864 kg Intake: Oral 300 0 Other: # Voids 2 3 # Bowel Movements 0 1 Stool Characteristics Soft Brown Weight Source Bedscale Bedscale Bedscale Active Medications: Current Medications Acetaminophen (Tylenol) 650 mg PO Q4H PRN PRN Reason: Mild Pain / Temp above 100 Stop: 09/13/18 07:54 Al Hydrox/Mg Hydrox/Simethicone (Maalox) 30 ml PO Q4HR PRN PRN Reason: GI DISTRESS Stop: 09/13/18 07:54 Alendronate Sodium (Fosamax) 70 mg PO Q7D [facility] Stop: 09/14/18 06:29 Last Admin: 07/16/18 06:34 Dose: Not Given Ascorbic Acid (Vitamin C) 500 mg PO DAILY [facility] Stop: 09/13/18 08:59 Last Admin: 07/17/18 09:26 Dose: Not Given Atorvastatin Calcium (Lipitor) 20 mg PO DAILY [facility]; Protocol Stop: 09/13/18 08:59 Last Admin: 07/17/18 09:26 Dose: Not Given Calcium/Vitamin D (Oscal W/Vitamin D) 1 tab PO DAILY [facility] Stop: 09/13/18 08:59 Last Admin: 07/17/18 09:27 Dose: Not Given Cyanocobalamin (Vitamin B12) 1,000 mcg PO DAILY [facility] Stop: 09/13/18 08:59 Last Admin: 07/17/18 09:29 Dose: Not Given Dicyclomine HCl (Bentyl) 10 mg PO TID [facility] Stop: 09/13/18 08:59 Last Admin: 07/17/18 09:29 Dose: Not Given Docusate Sodium (Colace) 500 mg PO DAILY [facility] Stop: 09/13/18 08:59 Last Admin: 07/17/18 09:29 Dose: Not Given Donepezil HCl (Aricept) 5 mg PO HS [facility] Stop: 09/13/18 20:59 Last Admin: 07/16/18 20:39 Dose: 5 mg Enoxaparin Sodium (Lovenox) 80 mg SUBQ Q12HR [facility] Stop: 09/13/18 08:59 Last Admin: 07/17/18 09:24 Dose: 80 mg Furosemide (Lasix) 40 mg IVP DAILY [facility] Stop: 09/13/18 08:59 Last Admin: 07/17/18 09:24 Dose: 40 mg Glimepiride (Amaryl) 1 mg PO QDAC [facility] Stop: 09/14/18 07:29 Last Admin: 07/17/18 06:33 Dose: Not Given Ceftriaxone Sodium 1 gm/ (Dextrose) 50 mls @ 100 mls/hr IV Q24H [facility] Stop: 09/14/18 14:59 Last Admin: 07/16/18 15:15 Dose: 100 mls/hr Dextrose/Sodium Chloride (D5-0.9%Ns) 1,000 mls @ 50 mls/hr IV .Q20H [facility] Stop: 09/14/18 15:16 Last Admin: 07/16/18 17:19 Dose: 50 mls/hr Ibuprofen (Motrin) 400 mg PO Q6HR [facility] Stop: 09/13/18 11:59 Last Admin: 07/17/18 06:23 Dose: Not Given Ketotifen Fumarate (Zaditor 0.025% Oph Soln) 1 drop EACH EYE DAILY [facility] Stop: 09/13/18 08:59 Last Admin: 07/17/18 09:30 Dose: Not Given Lactobacillus Rhamnosus (Culturelle 15b) 1 each PO DAILY [facility] Stop: 09/13/18 08:59 Last Admin: 07/17/18 09:30 Dose: Not Given Loperamide HCl (Imodium) 2 mg PO Q8HR PRN PRN Reason: Diarrhea Stop: 09/13/18 07:54 Loratadine (Claritin) 10 mg PO DAILY [facility] Stop: 09/13/18 08:59 Last Admin: 07/17/18 09:30 Dose: Not Given Magnesium Hydroxide (Milk Of Magnesia) 30 ml PO HS PRN PRN Reason: Constipation Stop: 09/13/18 07:54 Memantine (Namenda) 5 mg PO TID [facility] Stop: 09/13/18 08:59 Last Admin: 07/17/18 09:30 Dose: Not Given Miscellaneous (Lovenox Subq Per Pharmacy) 1 ea [facility] PRN [facility]; Protocol Stop: 09/13/18 00:44 Multivitamins/Vitamin C (Theragran) 1 tab PO DAILY [facility] Stop: 09/13/18 08:59 Last Admin: 07/17/18 09:30 Dose: Not Given Oxybutynin Chloride (Ditropan) 5 mg PO DAILY [facility] Stop: 09/13/18 08:59 Last Admin: 07/17/18 09:30 Dose: Not Given Pantoprazole Sodium (Protonix) 40 mg PO QDAC [facility] Stop: 09/14/18 07:29 Last Admin: 07/17/18 06:34 Dose: Not Given Quetiapine Fumarate (Seroquel) 25 mg PO BID [facility]; Protocol Stop: 09/13/18 16:59 Last Admin: 07/17/18 09:30 Dose: Not Given Sertraline HCl (Zoloft) 25 mg PO DAILY [facility]; Protocol Stop: 09/13/18 14:59 Last Admin: 07/17/18 09:31 Dose: Not Given Tramadol HCl (Ultram) 50 mg PO Q12HR PRN PRN Reason: Pain (Moderate) Stop: 09/13/18 07:54 Last Admin: 07/15/18 11:07 Dose: 50 mg Verapamil HCl (Isoptin Sr) 180 mg PO DAILY [facility] Stop: 09/13/18 08:59 Last Admin: 07/17/18 09:31 Dose: Not Given
--- NOTE | 2018-07-17 14:58 | Internal Medicine Prog Note ---
Internal Medicine Subjective - Subjective Patient is:: awake Patient Complaints of:: other (javi leg edema) Per staff patient has:: no adverse event Internal Medicine Objective - Results Result Diagrams: 07/16/18 04:55 07/16/18 04:55 Recent Labs: Laboratory Last Values WBC 6.3 Th/cmm (4.8-10.8) 07/16/18 04:55 RBC 3.39 Mil/cmm (3.80-5.20) L 07/16/18 04:55 Hgb 10.7 gm/dL (12-16) L 07/16/18 04:55 Hct 32.4 % (41.0-60) L 07/16/18 04:55 MCV 95.6 fl (81-100) 07/16/18 04:55 MCH 31.5 pg (27.0-31.0) H 07/16/18 04:55 MCHC Differential 33.0 pg (28.0-36.0) 07/16/18 04:55 RDW 15.5 % (11.5-20.0) 07/16/18 04:55 Plt Count 236 Th/cmm (150-400) 07/16/18 04:55 MPV 7.6 fl 07/16/18 04:55 Neutrophils % 55.1 % (40.0-80.0) 07/16/18 04:55 Lymphocytes % 35.6 % (20.0-50.0) 07/16/18 04:55 Monocytes % 5.5 % (2.0-10.0) 07/16/18 04:55 Eosinophils % 3.1 % (0.0-5.0) 07/16/18 04:55 Basophils % 0.7 % (0.0-2.0) 07/16/18 04:55 D-Dimer 4000 ng/mL (100-400) H 07/15/18 05:35 Sodium 138 mEq/L (136-145) 07/16/18 04:55 Potassium 3.6 mEq/L (3.5-5.1) 07/16/18 04:55 Chloride 107 mEq/L (98-107) 07/16/18 04:55 Carbon Dioxide 25.1 mEq/L (21.0-31.0) 07/16/18 04:55 Anion Gap 9.5 (7.0-16.0) 07/16/18 04:55 BUN 10 mg/dL (7-25) 07/16/18 04:55 Creatinine 0.6 mg/dL (0.6-1.2) 07/16/18 04:55 Est GFR ( Amer) TNP 07/16/18 04:55 Est GFR (Non-Af Amer) TNP 07/16/18 04:55 BUN/Creatinine Ratio 16.7 07/16/18 04:55 Glucose 79 mg/dL (70-105) 07/16/18 04:55 Whole Bld Lactic Acid 1.27 mmol/L (0.60-1.99) 07/14/18 21:00 Calcium 8.0 mg/dL (8.6-10.3) L 07/16/18 04:55 Total Bilirubin 0.4 mg/dL (0.3-1.0) 07/14/18 21:00 AST 15 U/L (13-39) 07/14/18 21:00 ALT 7 U/L (7-52) 07/14/18 21:00 Alkaline Phosphatase 55 U/L (34-104) 07/14/18 21:00 Troponin I 0.01 ng/mL (0.01-0.05) 07/14/18 21:00 Total Protein 6.4 gm/dL (6.0-8.3) 07/14/18 21:00 Albumin 3.0 gm/dL (3.7-5.3) L 07/14/18 21:00 Globulin 3.4 gm/dL 07/14/18 21:00 Albumin/Globulin Ratio 0.9 (1.0-1.8) L 07/14/18 21:00 Triglycerides 54 mg/dL (<150) 07/15/18 05:35 Cholesterol 87 mg/dL (<200) 07/15/18 05:35 LDL Cholesterol Direct 31 mg/dL (75-193) L 07/15/18 05:35 HDL Cholesterol 39 mg/dL (23-92) 07/15/18 05:35 TSH 2.64 uIU/ml (0.34-5.60) 07/15/18 05:35 Urine Source RANDOM 07/16/18 05:05 Urine Color YELLOW 07/16/18 05:05 Urine Clarity HAZY (CLEAR) 07/16/18 05:05 Urine pH 6.0 (4.6 - 8.0) 07/16/18 05:05 Ur Specific [place] 1.010 (1.005-1.030) 07/16/18 05:05 Urine Protein NEGATIVE mg/dL (NEGATIVE) 07/16/18 05:05 Urine Glucose (UA) NEGATIVE mg/dL (NEGATIVE) 07/16/18 05:05 Urine Ketones NEGATIVE mg/dL (NEGATIVE) 07/16/18 05:05 Urine Blood TRACE (NEGATIVE) 07/16/18 05:05 Urine Nitrate NEGATIVE (NEGATIVE) 07/16/18 05:05 Urine Bilirubin NEGATIVE (NEGATIVE) 07/16/18 05:05 Urine Urobilinogen 0.2 E.U./dL (0.2 - 1.0) 07/16/18 05:05 Ur Leukocyte Esterase LARGE (NEGATIVE) H 07/16/18 05:05 Urine RBC 0-2 /hpf (0-5) 07/16/18 05:05 Urine WBC 6-10 /hpf (0-5) H 07/16/18 05:05 Ur Epithelial Cells FEW /lpf (FEW) 07/16/18 05:05 Urine Bacteria FEW /hpf (NONE SEEN) 07/16/18 05:05 Hepatitis A IgM Ab Negative (Negative) 07/15/18 05:35 Hep Bs Antigen Negative (Negative) 07/15/18 05:35 Hep B Core IgM Ab Negative (Negative) 07/15/18 05:35 Hepatitis C Antibody 0.2 s/co ratio (0.0-0.9) 07/15/18 05:35 HIV 1&2 Antibody Screen NEGATIVE (NEG) 07/15/18 05:35 - Physical Exam Vitals and I&O: Vital Signs Temp 96.4 F 07/17/18 12:04 Pulse 71 07/17/18 12:04 Resp 18 07/17/18 12:04 BP 130/70 07/17/18 12:04 Pulse Ox 96 07/17/18 12:04 Intake & Output 07/16/18 07/17/18 07/17/18 18:59 06:59 18:59 Intake Total 350 0 Balance 350 0 Weight (lbs) 64.864 kg 64.864 kg 64.864 kg Intake: Intake, IV Amount 50 cefTRIAXone 1 gm In 50 Dextrose 5% 50 ml @ 100 mls/hr IV Q24H [facility] Rx#: [id number] Oral 300 0 Other: # Voids 2 3 # Bowel Movements 0 1 Stool Characteristics Soft Brown Weight Source Bedscale Bedscale Bedscale Active Medications: Current Medications Acetaminophen (Tylenol) 650 mg PO Q4H PRN PRN Reason: Mild Pain / Temp above 100 Stop: 09/13/18 07:54 Al Hydrox/Mg Hydrox/Simethicone (Maalox) 30 ml PO Q4HR PRN PRN Reason: GI DISTRESS Stop: 09/13/18 07:54 Alendronate Sodium (Fosamax) 70 mg PO Q7D [facility] Stop: 09/14/18 06:29 Last Admin: 07/16/18 06:34 Dose: Not Given Ascorbic Acid (Vitamin C) 500 mg PO DAILY [facility] Stop: 09/13/18 08:59 Last Admin: 07/17/18 09:26 Dose: Not Given Atorvastatin Calcium (Lipitor) 20 mg PO DAILY [facility]; Protocol Stop: 09/13/18 08:59 Last Admin: 07/17/18 09:26 Dose: Not Given Calcium/Vitamin D (Oscal W/Vitamin D) 1 tab PO DAILY [facility] Stop: 09/13/18 08:59 Last Admin: 07/17/18 09:27 Dose: Not Given Cyanocobalamin (Vitamin B12) 1,000 mcg PO DAILY [facility] Stop: 09/13/18 08:59 Last Admin: 07/17/18 09:29 Dose: Not Given Dicyclomine HCl (Bentyl) 10 mg PO TID [facility] Stop: 09/13/18 08:59 Last Admin: 07/17/18 13:16 Dose: Not Given Docusate Sodium (Colace) 500 mg PO DAILY [facility] Stop: 09/13/18 08:59 Last Admin: 07/17/18 09:29 Dose: Not Given Donepezil HCl (Aricept) 5 mg PO HS [facility] Stop: 09/13/18 20:59 Last Admin: 07/16/18 20:39 Dose: 5 mg Enoxaparin Sodium (Lovenox) 80 mg SUBQ Q12HR [facility] Stop: 09/13/18 08:59 Last Admin: 07/17/18 09:24 Dose: 80 mg Furosemide (Lasix) 40 mg IVP DAILY [facility] Stop: 09/13/18 08:59 Last Admin: 07/17/18 09:24 Dose: 40 mg Glimepiride (Amaryl) 1 mg PO QDAC [facility] Stop: 09/14/18 07:29 Last Admin: 07/17/18 06:33 Dose: Not Given Ceftriaxone Sodium 1 gm/ (Dextrose) 50 mls @ 100 mls/hr IV Q24H [facility] Stop: 09/14/18 14:59 Last Admin: 07/17/18 14:33 Dose: 100 mls/hr Dextrose/Sodium Chloride (D5-0.9%Ns) 1,000 mls @ 50 mls/hr IV .Q20H [facility] Stop: 09/14/18 15:16 Last Admin: 07/16/18 17:19 Dose: 50 mls/hr Ibuprofen (Motrin) 400 mg PO Q6HR [facility] Stop: 09/13/18 11:59 Last Admin: 07/17/18 12:22 Dose: Not Given Ketotifen Fumarate (Zaditor 0.025% Oph Soln) 1 drop EACH EYE DAILY [facility] Stop: 09/13/18 08:59 Last Admin: 07/17/18 09:30 Dose: Not Given Lactobacillus Rhamnosus (Culturelle 15b) 1 each PO DAILY [facility] Stop: 09/13/18 08:59 Last Admin: 07/17/18 09:30 Dose: Not Given Loperamide HCl (Imodium) 2 mg PO Q8HR PRN PRN Reason: Diarrhea Stop: 09/13/18 07:54 Loratadine (Claritin) 10 mg PO DAILY [facility] Stop: 09/13/18 08:59 Last Admin: 07/17/18 09:30 Dose: Not Given Magnesium Hydroxide (Milk Of Magnesia) 30 ml PO HS PRN PRN Reason: Constipation Stop: 09/13/18 07:54 Memantine (Namenda) 5 mg PO TID [facility] Stop: 09/13/18 08:59 Last Admin: 07/17/18 13:16 Dose: Not Given Miscellaneous (Lovenox Subq Per Pharmacy) 1 ea MC PRN [facility]; Protocol Stop: 09/13/18 00:44 Multivitamins/Vitamin C (Theragran) 1 tab PO DAILY [facility] Stop: 09/13/18 08:59 Last Admin: 07/17/18 09:30 Dose: Not Given Oxybutynin Chloride (Ditropan) 5 mg PO DAILY [facility] Stop: 09/13/18 08:59 Last Admin: 07/17/18 09:30 Dose: Not Given Pantoprazole Sodium (Protonix) 40 mg PO QDAC [facility] Stop: 09/14/18 07:29 Last Admin: 07/17/18 06:34 Dose: Not Given Quetiapine Fumarate (Seroquel) 25 mg PO BID [facility]; Protocol Stop: 09/13/18 16:59 Last Admin: 07/17/18 09:30 Dose: Not Given Sertraline HCl (Zoloft) 25 mg PO DAILY [facility]; Protocol Stop: 09/13/18 14:59 Last Admin: 07/17/18 09:31 Dose: Not Given Tramadol HCl (Ultram) 50 mg PO Q12HR PRN PRN Reason: Pain (Moderate) Stop: 09/13/18 07:54 Last Admin: 07/15/18 11:07 Dose: 50 mg Verapamil HCl (Isoptin Sr) 180 mg PO DAILY [facility] Stop: 09/13/18 08:59 Last Admin: 07/17/18 09:31 Dose: Not Given General: alert HEENT: NC/AT Abdomen: soft Extremities: edema, no clear Internal Medicine Assmt/Plan - Assessment Assessment: javi leg edema h/o dm h/o perinal cancer h/o ovarian ca htn - Plan Plan: as per order sheet
[2018-07-17] MEDS: D5-0.9%NS 1,000 ML IV SCH (18:38)
[2018-07-18] MEDS: Dicyclomine 10 mg Cap PO SCH (08:25)
[2018-07-18] MEDS: Lactobacillus Rhamnosus GG 15 Billion CFU CAP.SPRINK PO SCH (08:25)
[2018-07-18] MEDS: Multivitamin Tab PO SCH (08:26)
[2018-07-18] MEDS: Calcium Carb/Vit D 500 mg/200 U Tab PO SCH (08:26)
[2018-07-18] MEDS: Atorvastatin Calcium 10 MG TAB PO SCH (08:26)
[2018-07-18] MEDS: Pantoprazole 40 mg EC Tab PO SCH (08:27)
[2018-07-18] MEDS: Enoxaparin 80 mg/0.8 mL 0.8mL Syr SUBQ SCH (08:30)
[2018-07-18] MEDS: VERAPAMIL HCL 180 MG PO SCH (10:59)
[2018-07-18] MEDS ORDERED: Pantoprazole 40 mg/Packet PO SCH (11:07)
--- NOTE | 2018-07-18 13:02 | Infectious Disease Prog Note ---
Infectious Disease Subjective - Review of Systems Service Date: 07/18/18 Subjective: There is no new change, no fever. Infectious Disease Objective - Results Result Diagrams: 07/16/18 04:55 07/16/18 04:55 Recent Labs: Laboratory Last Values WBC 6.3 Th/cmm (4.8-10.8) 07/16/18 04:55 RBC 3.39 Mil/cmm (3.80-5.20) L 07/16/18 04:55 Hgb 10.7 gm/dL (12-16) L 07/16/18 04:55 Hct 32.4 % (41.0-60) L 07/16/18 04:55 MCV 95.6 fl (81-100) 07/16/18 04:55 MCH 31.5 pg (27.0-31.0) H 07/16/18 04:55 MCHC Differential 33.0 pg (28.0-36.0) 07/16/18 04:55 RDW 15.5 % (11.5-20.0) 07/16/18 04:55 Plt Count 236 Th/cmm (150-400) 07/16/18 04:55 MPV 7.6 fl 07/16/18 04:55 Neutrophils % 55.1 % (40.0-80.0) 07/16/18 04:55 Lymphocytes % 35.6 % (20.0-50.0) 07/16/18 04:55 Monocytes % 5.5 % (2.0-10.0) 07/16/18 04:55 Eosinophils % 3.1 % (0.0-5.0) 07/16/18 04:55 Basophils % 0.7 % (0.0-2.0) 07/16/18 04:55 D-Dimer 4000 ng/mL (100-400) H 07/15/18 05:35 Sodium 138 mEq/L (136-145) 07/16/18 04:55 Potassium 3.6 mEq/L (3.5-5.1) 07/16/18 04:55 Chloride 107 mEq/L (98-107) 07/16/18 04:55 Carbon Dioxide 25.1 mEq/L (21.0-31.0) 07/16/18 04:55 Anion Gap 9.5 (7.0-16.0) 07/16/18 04:55 BUN 10 mg/dL (7-25) 07/16/18 04:55 Creatinine 0.6 mg/dL (0.6-1.2) 07/16/18 04:55 Est GFR ( Amer) TNP 07/16/18 04:55 Est GFR (Non-Af Amer) TNP 07/16/18 04:55 BUN/Creatinine Ratio 16.7 07/16/18 04:55 Glucose 79 mg/dL (70-105) 07/16/18 04:55 Whole Bld Lactic Acid 1.27 mmol/L (0.60-1.99) 07/14/18 21:00 Calcium 8.0 mg/dL (8.6-10.3) L 07/16/18 04:55 Total Bilirubin 0.4 mg/dL (0.3-1.0) 07/14/18 21:00 AST 15 U/L (13-39) 07/14/18 21:00 ALT 7 U/L (7-52) 07/14/18 21:00 Alkaline Phosphatase 55 U/L (34-104) 07/14/18 21:00 Troponin I 0.01 ng/mL (0.01-0.05) 07/14/18 21:00 Total Protein 6.4 gm/dL (6.0-8.3) 07/14/18 21:00 Albumin 3.0 gm/dL (3.7-5.3) L 07/14/18 21:00 Globulin 3.4 gm/dL 07/14/18 21:00 Albumin/Globulin Ratio 0.9 (1.0-1.8) L 07/14/18 21:00 Triglycerides 54 mg/dL (<150) 07/15/18 05:35 Cholesterol 87 mg/dL (<200) 07/15/18 05:35 LDL Cholesterol Direct 31 mg/dL (75-193) L 07/15/18 05:35 HDL Cholesterol 39 mg/dL (23-92) 07/15/18 05:35 TSH 2.64 uIU/ml (0.34-5.60) 07/15/18 05:35 Urine Source RANDOM 07/16/18 05:05 Urine Color YELLOW 07/16/18 05:05 Urine Clarity HAZY (CLEAR) 07/16/18 05:05 Urine pH 6.0 (4.6 - 8.0) 07/16/18 05:05 Ur Specific [place] 1.010 (1.005-1.030) 07/16/18 05:05 Urine Protein NEGATIVE mg/dL (NEGATIVE) 07/16/18 05:05 Urine Glucose (UA) NEGATIVE mg/dL (NEGATIVE) 07/16/18 05:05 Urine Ketones NEGATIVE mg/dL (NEGATIVE) 07/16/18 05:05 Urine Blood TRACE (NEGATIVE) 07/16/18 05:05 Urine Nitrate NEGATIVE (NEGATIVE) 07/16/18 05:05 Urine Bilirubin NEGATIVE (NEGATIVE) 07/16/18 05:05 Urine Urobilinogen 0.2 E.U./dL (0.2 - 1.0) 07/16/18 05:05 Ur Leukocyte Esterase LARGE (NEGATIVE) H 07/16/18 05:05 Urine RBC 0-2 /hpf (0-5) 07/16/18 05:05 Urine WBC 6-10 /hpf (0-5) H 07/16/18 05:05 Ur Epithelial Cells FEW /lpf (FEW) 07/16/18 05:05 Urine Bacteria FEW /hpf (NONE SEEN) 07/16/18 05:05 Hepatitis A IgM Ab Negative (Negative) 07/15/18 05:35 Hep Bs Antigen Negative (Negative) 07/15/18 05:35 Hep B Core IgM Ab Negative (Negative) 07/15/18 05:35 Hepatitis C Antibody 0.2 s/co ratio (0.0-0.9) 07/15/18 05:35 HIV 1&2 Antibody Screen NEGATIVE (NEG) 07/15/18 05:35 - Physical Exam Vitals and I&O: Vital Signs Temp 96.3 F 07/18/18 12:11 Pulse 61 07/18/18 12:11 Resp 18 07/18/18 12:11 BP 122/80 07/18/18 12:11 Pulse Ox 98 07/18/18 12:11 Intake & Output 07/17/18 07/18/18 07/18/18 18:59 06:59 18:59 Intake Total 1000 Balance 1000 Weight (lbs) 64.864 kg 63.14 kg Intake: Intake, IV Amount 1000 D5-0.9%Ns 1,000 ml @ 50 1000 mls/hr IV .Q20H [facility] Rx#: [id number] Oral 0 Other: Stool Characteristics Soft Soft Soft Brown Brown Brown Weight Source Bedscale Bedscale Active Medications: Current Medications Acetaminophen (Tylenol) 650 mg PO Q4H PRN PRN Reason: Mild Pain / Temp above 100 Stop: 09/13/18 07:54 Al Hydrox/Mg Hydrox/Simethicone (Maalox) 30 ml PO Q4HR PRN PRN Reason: GI DISTRESS Stop: 09/13/18 07:54 Alendronate Sodium (Fosamax) 70 mg PO Q7D [facility] Stop: 09/14/18 06:29 Last Admin: 07/16/18 06:34 Dose: Not Given Ascorbic Acid (Vitamin C) 500 mg PO DAILY [facility] Stop: 09/13/18 08:59 Last Admin: 07/18/18 08:27 Dose: 500 mg Atorvastatin Calcium (Lipitor) 20 mg PO DAILY [facility]; Protocol Stop: 09/13/18 08:59 Last Admin: 07/18/18 08:26 Dose: 20 mg Calcium/Vitamin D (Oscal W/Vitamin D) 1 tab PO DAILY JEANETTE Stop: 09/13/18 08:59 Last Admin: 07/18/18 08:26 Dose: 1 tab Cyanocobalamin (Vitamin B12) 1,000 mcg PO DAILY JEANETTE Stop: 09/13/18 08:59 Last Admin: 07/18/18 08:26 Dose: 1,000 mcg Dicyclomine HCl (Bentyl) 10 mg PO TID JEANETTE Stop: 09/13/18 08:59 Last Admin: 07/18/18 08:25 Dose: 10 mg Docusate Sodium (Colace) 250 mg PO BID JEANETTE Stop: 09/13/18 08:59 Donepezil HCl (Aricept) 5 mg PO HS JEANETTE Stop: 09/13/18 20:59 Last Admin: 07/17/18 21:13 Dose: Not Given Enoxaparin Sodium (Lovenox) 80 mg SUBQ Q12HR JEANETTE Stop: 09/13/18 08:59 Last Admin: 07/18/18 08:30 Dose: 80 mg Furosemide (Lasix) 40 mg IVP DAILY JEANETTE Stop: 09/13/18 08:59 Last Admin: 07/18/18 08:28 Dose: 40 mg Glimepiride (Amaryl) 1 mg PO QDAC JEANETTE Stop: 09/14/18 07:29 Last Admin: 07/18/18 08:24 Dose: 1 mg Ceftriaxone Sodium 1 gm/ (Dextrose) 50 mls @ 100 mls/hr IV Q24H JEANETTE Stop: 09/14/18 14:59 Last Admin: 07/17/18 14:33 Dose: 100 mls/hr Dextrose/Sodium Chloride (D5-0.9%Ns) 1,000 mls @ 50 mls/hr IV .Q20H JEANETTE Stop: 09/14/18 15:16 Last Admin: 07/17/18 18:38 Dose: 50 mls/hr Ibuprofen (Motrin) 400 mg PO Q6HR JEANETTE Stop: 09/13/18 11:59 Last Admin: 07/18/18 06:05 Dose: Not Given Ketotifen Fumarate (Zaditor 0.025% Ophth Soln) 1 drop EACH EYE DAILY [facility] Stop: 09/13/18 08:59 Last Admin: 07/18/18 10:55 Dose: Not Given Lactobacillus Rhamnosus (Culturelle 15b) 1 each PO DAILY [facility] Stop: 09/13/18 08:59 Last Admin: 07/18/18 08:25 Dose: 1 each Loperamide HCl (Imodium) 2 mg PO Q8HR PRN PRN Reason: Diarrhea Stop: 09/13/18 07:54 Loratadine (Claritin) 10 mg PO DAILY [facility] Stop: 09/13/18 08:59 Last Admin: 07/18/18 08:25 Dose: 10 mg Magnesium Hydroxide (Milk Of Magnesia) 30 ml PO HS PRN PRN Reason: Constipation Stop: 09/13/18 07:54 Memantine (Namenda) 5 mg PO TID JEANETTE Stop: 09/13/18 08:59 Last Admin: 07/18/18 08:25 Dose: 5 mg Miscellaneous (Lovenox Subq Per Pharmacy) 1 ea PRN JEANETTE; Protocol Stop: 09/13/18 00:44 Multivitamins/Vitamin C (Theragran) 1 tab PO DAILY JEANETTE Stop: 09/13/18 08:59 Last Admin: 07/18/18 08:26 Dose: 1 tab Oxybutynin Chloride (Ditropan) 5 mg PO DAILY JEANETTE Stop: 09/13/18 08:59 Last Admin: 07/18/18 08:25 Dose: 5 mg Pantoprazole Sodium (Protonix) 40 mg PO QDAC [facility] Stop: 09/14/18 07:29 Quetiapine Fumarate (Seroquel) 25 mg PO BID [facility]; Protocol Stop: 09/13/18 16:59 Last Admin: 07/18/18 08:26 Dose: 25 mg Sertraline HCl (Zoloft) 25 mg PO DAILY [facility]; Protocol Stop: 09/13/18 14:59 Last Admin: 07/18/18 08:24 Dose: 25 mg Tramadol HCl (Ultram) 50 mg PO Q12HR PRN PRN Reason: Pain (Moderate) Stop: 09/13/18 07:54 Last Admin: 07/15/18 11:07 Dose: 50 mg Verapamil HCl (Isoptin Sr) 180 mg PO DAILY [facility] Stop: 09/13/18 08:59 Last Admin: 07/18/18 10:59 Dose: Not Given General: no acute distress, well developed, well nourished HEENT: atraumatic, normocephalic, PERRLA, EOMI Neck: supple, no thyromegaly, no lymphadenopathy Cardiovascular: S1S2, regular Lungs: clear to auscultation bilaterally, clear to percussion Abdomen: soft, no tender, no distended, no rebound Extremities: no cyanosis, no clubbing, no edema Neurological: awake, alert, oriented Skin: intact Infectious Disease Assmt/Plan - Assessment Assessment: 1. Cellulitis of left leg. 2. Diabetes mellitus type 2. 3. History of rectal CA with metastasis. 4. Hypertension. 5. Dementia. - Plan Plan: May continue same treatment. may change antibiotics to augmentin 500 twice a day.
[2018-07-19] MEDS ORDERED: Docusate Sodium 100 mg/10 mL UD PO SCH (09:00)
== END 2018-07-18 13:40 | DRG 603 ==
LOC: ER 20:19 → TELE 23:25 → MSI 07-18 11:57
PROVIDERS: ADMIT Internal Medicine; ATTEND Internal Medicine
DX: L03.116 Cellulitis of left lower limb (principal); C20 Malignant neoplasm of rectum; C79.60 Secondary malignant neoplasm of unspecified ovary; D68.69 Other thrombophilia; E11.9 Type 2 diabetes mellitus without complications; I10 Essential (primary) hypertension; M81.0 Age-related osteoporosis without current pathological fracture; E78.5 Hyperlipidemia, unspecified; F03.90 Unspecified dementia, unspecified severity, without behavioral disturbance, psychotic disturbance, mood disturbance, and anxiety; K21.9 Gastro-esophageal reflux disease without esophagitis; Z79.84 Long term (current) use of oral hypoglycemic drugs; Z74.01 Bed confinement status
CPT/HCPCS: 36415-UA; 71045-TC; 80048-TC; 80053-TC; 80061-TC; 80074-90; 81001-TC; 83605; 84443-TC; 84484-TC; 85025-TC; 85379-TC; 86703-TC; 93005; 93970-TC-50; 93971-TC-LT; 93971-TC-RT; 96375; J0696; J1650; J1885; J1940; J2270; J2543; J7030; J7042; Z7610

== ENCOUNTER 2018-12-03 12:19 | Inpatient (IN) | payer MEDICARE, MEDICAID ==
--- NOTE | 2018-12-03 13:34 | Diagnostic Imaging Report ---
CHEST X-RAY: AP view INDICATION: pain COMPARISON: 07/14/2018 FINDINGS: Chronic lung changes are noted. There is no focal consolidation or pleural effusions . Borderline prominent heart is noted with atherosclerosis. Degenerative changes of the spine are noted. IMPRESSION: Chronic lung changes with no focal consolidation identified. Borderline prominent heart with atherosclerosis.
[2018-12-03 13:47] LABS: ALB/GLOB RATIO 0.9 (1.0-1.8); ALBUMIN 3.2 gm/dL (3.7-5.3); ALKALINE PHOSPHATASE 64 U/L (34-104); ANION GAP 15.7 (7.0-16.0); BILIRUBIN,TOTAL 0.5 mg/dL (0.3-1.0); BUN - UREA NITROGEN 17 mg/dL (7-25); CALCIUM SERUM 9.1 mg/dL (8.6-10.3); CARBON DIOXIDE 27.5 mEq/L (21.0-31.0); CHLORIDE 102 mEq/L (98-107); CREATININE - SERUM 0.5 mg/dL (0.6-1.2); CREATININE KINASE 33 U/L (30-223); GLUCOSE 105 mg/dL (70-105); INR 1.13 (0.5-1.4); POTASSIUM SERUM 4.2 mEq/L (3.5-5.1); PROTHROMBIN TIME (TEST) 11.6 SECONDS (9.5-11.5); SGOT 25 U/L (13-39); SGPT/ALT 17 U/L (7-52); SODIUM SERUM 141 mEq/L (136-145); TOTAL PROTEIN,SERUM 6.9 gm/dL (6.0-8.3)
[2018-12-03 13:49] LABS: % BASOPHILS 0.7 % (0.0-2.0); % EOSINOPHILS 1.4 % (0.0-5.0); % LYMPHOCYTES 30.3 % (20.0-50.0); % NEUTROPHILS 61.6 % (40.0-80.0); EOSINOPHILE ABSOLUTE 0.1 Th/cmm (0.1-0.4); HEMATOCRIT 33.6 % (41.0-60); LYMPHOCYTE ABSOLUTE 2.1 Th/cmm (1.5-3.0); MEAN CELL VOLUME 90.5 fl (81-100); MEAN CORPUSCULAR HEMOGLOBIN 29.8 pg (27.0-31.0); MEAN CORPUSCULAR HGB CONC 32.9 pg (28.0-36.0); MEAN PLATELET VOLUME 7.3 fl; MONOCYTE ABSOLUTE 0.4 Th/cmm (0.3-1.0); NEUTROPHILE ABSOLUTE 4.4 Th/cmm (1.8-8.0); PLATELET COUNT 286 Th/cmm (150-400); RED BLOOD COUNT 3.71 Mil/cmm (3.80-5.20)
[2018-12-03] MEDS ORDERED: Levofloxacin 500mg/100mL 500 MG/100 ML BAG IV ONE ×2 (13:55→13:59)
[2018-12-03] MEDS ORDERED: Sodium Chloride 0.9% 1,000 ML IV ONE (13:56)
[2018-12-03 13:57] LABS: TROP I 0.01 ng/mL (0.01-0.05)
[2018-12-03 14:17] LABS: AMYLASE SERUM 46 U/L (29-103); LIPASE 15 U/L (11-82)
[2018-12-03 14:38] LABS: URINE SOURCE MIDSTREAM
[2018-12-03 14:40] LABS: URINE BILIRUBIN NEGATIVE (NEGATIVE); URINE BLOOD NEGATIVE (NEGATIVE); URINE GLUCOSE (UA) NEGATIVE (NEGATIVE); URINE KETONE NEGATIVE (NEGATIVE); URINE LEUKOCYTE ESTERASE NEGATIVE (NEGATIVE); URINE NITRATE NEGATIVE (NEGATIVE); URINE PH 7.5 (4.6 - 8.0); URINE PROTEIN NEGATIVE (NEGATIVE)
[2018-12-03 14:44] LABS: URINE COLOR YELLOW
[2018-12-03 14:45] LABS: URINE CLARITY CLEAR (CLEAR); URINE MICROSCOPIC INDICATED? YES
[2018-12-03 14:49] LABS: URINE AMORPHOUS SEDIMENT FEW PHOSPHATES (NONE SEEN); URINE BACTERIA FEW /hpf (NONE SEEN); URINE EPITHELIAL CELLS FEW /lpf (FEW); URINE WBC 0-2 /hpf (0-5)
--- NOTE | 2018-12-03 14:52 | ED Physician Chart ---
ED Chief Complaint/HPI - Patient Information Date Seen:: 12/03/18 Time Seen:: 12:45 Chief Complaint:: Weakness History of Present Illness:: onset x 3 days of generalized weakness, and confusion; no report of trauma, H/As , S/T, neck pain, C/P, SOB, cough, Abd. Pain, A/N/V/D/C, fever, chills, or urinary s/s Allergies:: Allergies Allergy/AdvReac Type Severity Reaction Status Date / Time No Known Allergies Allergy Verified 07/14/18 20:32 Vitals:: Vital Signs - 8 hr 12/03/18 12:46 Temp 98 F HR 70 RR 16 BP 127/58 O2 Sat % 100 Historian:: Patient, EMS Review:: Nurse's Note Reviewed, Old Chart Reviewed, EMS run form Reviewed ED Review of Systems - Review of Systems General/Constitutional: Fever, No chills, No weight loss, Weakness, No diaphoresis, No edema, No loss of appetite Skin: No skin lesions, No rash, No bruising Head: No headache, No light-headedness Eyes: No loss of vision, No pain, No diplopia ENT: No earache, No nasal drainage, No sore throat, No tinnitus Neck: No neck pain, No swelling, No thyromegaly, No stiffness, No mass noted Cardio Vascular: No chest pain, No palpitations, No PND, No orthopnea, No edema Pulmonary: No SOB, No cough, No sputum, No wheezing GI: No nausea, No vomiting, No diarrhea, No pain, No melena, No hematochezia, No constipation, No hematemesis G/U: No dysuria, No frequency, No hematuria, No nacturia Information And Data Architect Analyst: No vaginal discharge, No abnormal vaginal bleed, No contraction Musculoskeletal: No bone or joint pain, No back pain, No muscle pain Endocrine: No polyuria, No polydipsia Psychiatric: Prior psych history, Depression, Anxiety, No suicidal ideation, No homicidal ideation, No auditory hallucination, No visual hallucination Hematopoietic: No bruising, No lymphadenopathy Allergic/Immuno: No urticaria, No angioedema Neurological: No syncope, No focal symptoms, Weakness, No paresthesia, No headache, No seizure, No dizziness, Confusion, No vertigo ED Past Medical History - Past Medical History Obtainable: Yes Past Medical History: HTN, PUD/GERD, Dementia Family History: HTN Social History: Non Smoker, No Alcohol, No Drug Use, , Care Facility Surgical History: None Psychiatricy History: Depression, Bipolar, Dementia Medication: Reviewed Family Medical History - Family Member mother History Unknown: Yes Ethnicity: Unknown Living Status: Unknown ED Physical Exam - Physical Examination General/Constitutional: Awake, Well-developed, well-nourished, Alert, No distress, GCS 15, Non-toxic appearing, Ambulatory Head: Atraumatic Eyes: Lids, conjuctiva normal, PERRL, EOMI Skin: Nl inspection, No rash, No skin lesions, No ecchymosis, Well hydrated, No lymphadenopathy ENMT: External ears, nose nl, TM canals nl, Nasal exam nl, Lips, teeth, gums nl , Oropharynx nl, Tonsils nl Neck: Nontender, Full ROM w/o pain, No JVD, No nuchal rigidity, No bruit, No mass, No stridor Respiratory: Nl effort/Exclusion, Clear to Auscultation, No Wheeze/Rhonchi/Rales Cardio Vascular: RRR, No murmur, gallop, rubs, NL S1 S2, Carotid/Femoral/Distal pulses equal bilaterally GI: No tenderness/rebounding/guarding, No organomegaly, No hernia, Normal BS's, Nondistended, No mass/bruits, No McBurney tenderness Other GI comments:: no pulsatile masses : No CVA tenderness Extremities: No tenderness or effusion, Full ROM, normal strength in all extremities, No edema, Normal digits & nails Neuro/Psych: Alert/oriented, DTR's symmetric, Normal sensory exam, Normal motor strength, Judgement/insight normal, Mood normal, Normal gait, No focal deficits Misc: Normal back, No paraspinal tenderness ED Labs/Radiology/EKG Results - Lab Results Results: Laboratory Tests 12/03/18 12/03/18 12/03/18 13:20 13:20 13:20 WBC 7.0 RBC 3.71 L Hgb 11.0 L Hct 33.6 L MCV 90.5 MCH 29.8 MCHC Differential 32.9 RDW 14.0 Plt Count 286 MPV 7.3 Neutrophils % 61.6 Lymphocytes % 30.3 Monocytes % 6.0 Eosinophils % 1.4 Basophils % 0.7 PT 11.6 H INR 1.13 PTT (Actin FS) 30.1 Sodium 141 Potassium 4.2 Chloride 102 Carbon Dioxide 27.5 Anion Gap 15.7 BUN 17 Creatinine 0.5 L Est GFR ( Amer) TNP Est GFR (Non-Af Amer) TNP BUN/Creatinine Ratio 34.0 Glucose 105 Whole Bld Lactic Acid Calcium 9.1 Total Bilirubin 0.5 AST 25 ALT 17 Alkaline Phosphatase 64 Creatine Kinase 33 Troponin I Total Protein 6.9 Albumin 3.2 L Globulin 3.7 Albumin/Globulin Ratio 0.9 L Amylase Lipase Urine Color Urine Clarity Urine pH Ur Specific Normal Urine Protein Urine Glucose (UA) Urine Ketones Urine Blood Urine Nitrate Urine Bilirubin Urine Urobilinogen Ur Leukocyte Esterase 12/03/18 12/03/18 12/03/18 13:20 13:20 14:26 WBC RBC Hgb Hct MCV MCH MCHC Differential RDW Plt Count MPV Neutrophils % Lymphocytes % Monocytes % Eosinophils % Basophils % PT INR PTT (Actin FS) Sodium Potassium Chloride Carbon Dioxide Anion Gap BUN Creatinine Est GFR ( Amer) Est GFR (Non-Af Amer) BUN/Creatinine Ratio Glucose Whole Bld Lactic Acid 3.22 H* Calcium Total Bilirubin AST ALT Alkaline Phosphatase Creatine Kinase Troponin I 0.01 Total Protein Albumin Globulin Albumin/Globulin Ratio Amylase 46 Lipase 15 Urine Color YELLOW Urine Clarity CLEAR Urine pH 7.5 Ur Specific Normal 1.015 Urine Protein NEGATIVE Urine Glucose (UA) NEGATIVE Urine Ketones NEGATIVE Urine Blood NEGATIVE Urine Nitrate NEGATIVE Urine Bilirubin NEGATIVE Urine Urobilinogen 2.0 Ur Leukocyte Esterase NEGATIVE Comments:: Reviewed - Radiology Results Comments:: CXR: CM; NAD - EKG Interpretations EKG Time:: 14:00 Rate & Rhythm: 72; NSR Comments:: non-specific st-t changes ED Septic Shock - . Is Septic Shock (SBP<90, OR Lactate>4 mmol\L) present?: No - <6hrs of presentation: Vital Signs: Vital Signs - 8 hr 12/03/18 12:46 Temp 98 F HR 70 RR 16 BP 127/58 O2 Sat % 100 ED Reassessment (Disposition) - Reassessment Reassessment Condition:: Improved - Diagnosis Diagnosis:: Weakness; Anemia; Lactic Acidosis; Elevated Lactic Acid; UTI; Sepsis; Hypoalbuminemia; Dehydration - Aftercare/Follow up Instructions Aftercare/Follow-Up Instructions:: Counseled pt regarding lab results/diagnosis & need follow up, Counseled pt & family regarding lab results/diagnosis & need follow up - Patient Disposition Discharge/Transfer:: Acute Care w/in this hosp Accepting Physician:: Dr. Bhatia Time Called:: [id number] Time Responded:: 14:20 Admitted to:: Med/Surg Spoke to:: Dr. Bhatia Admitting Medical Physician:: Dr. Bhatia Condition at Disposition:: Stable, Improved
[2018-12-03] MEDS: cefTRIAXone 1 GM in Sodium Chloride 0.9% 50 ML IV SCH (16:17)
[2018-12-03] MEDS: D5-0.45NS 1,000 ML IV SCH (16:20)
[2018-12-03 16:52] LABS: INF A SCREEN NEG FOR INF A; INF B SCREEN NEG FOR INF B
[2018-12-03 18:29] VITALS: BP 132/93
--- NOTE | 2018-12-04 03:44 | Consultation ---
DATE OF CONSULTATION: 12/03/2018 INFECTIOUS DISEASE CONSULTATION REFERRING PHYSICIAN: Dr. Bhatia REASON FOR CONSULTATION: Pneumonia. HISTORY OF PRESENT ILLNESS: The patient is an 87-year-old female with past medical history of hypertension, peptic ulcer disease, GERD, and dementia, brought in from a nursing facility for generalized weakness and confusion. The patient denies any report of trauma or any pain. The patient is a poor historian, unable to give any history. The patient has swelling of the abdomen. The patient has ventral hernia. On initial evaluation, the patient's temperature was 98 degrees Fahrenheit and WBC count was 7000. Basic workup was performed and chest x-ray showed chronic lung changes along with right-sided infiltrate. The patient was on Levaquin and continued on Rocephin. ID consult was called for further antibiotic management. PAST MEDICAL HISTORY: Includes dementia, peptic ulcer disease, GERD, and hypertension. ALLERGIES: NKDA. MEDICATIONS: As per medication reconciliation sheet. Antibiotic-plata, the patient is receiving Rocephin. SOCIAL HISTORY: The patient lives at a nursing facility. No history of smoking, alcohol or drug use. FAMILY HISTORY: Hypertension. PSYCHIATRIC HISTORY: Depression, bipolar disorder, and dementia. REVIEW OF SYSTEMS: GENERAL: The patient has no fever, no chills, no weight loss, no weakness, no diaphoresis, no loss of appetite. HEENT: No diplopia, no photophobia, no sore throat. RESPIRATORY: No cough, no shortness of breath. CARDIOVASCULAR: No chest pain, no palpitation. GASTROINTESTINAL: No nausea, no vomiting, no diarrhea, no constipation. GENITOURINARY: No dysuria. NEUROLOGIC: No headache, no dizziness, no focal weakness. PHYSICAL EXAMINATION: VITAL SIGNS: Current vital signs show temperature is 99.8 degrees Fahrenheit, pulse is 81, respirations 18, blood pressure 99/54, oxygen saturation 99%. GENERAL: The patient is comfortable, lying in bed, not in any acute distress. HEENT: Head is normocephalic, atraumatic. Oral cavity is moist. [place] tongue. Eyes with no pallor, no icterus, PERRLA, EOMI. NECK: Supple. No JVD, no carotid bruit. Trachea is midline. CHEST: Bilateral equal breath sounds. Occasional crackles. HEART: S1 and S2 within normal limits. Regular rhythm. No murmur, no gallop. ABDOMEN: Soft, nontender, nondistended. Bowel sounds present. The patient has lumps in the abdomen consistent with ventral hernia. EXTREMITIES: No cyanosis, no clubbing, no edema. NEUROLOGICAL: Alert, awake, oriented x 3. No focal deficit. LABORATORY DATA: Current lab shows WBC count is 7000, hemoglobin 11, hematocrit 33.6, platelets are 286,000, neutrophils 66%. INR is 1.13. Sodium is 141, potassium 4.2, chloride 102, bicarbonate is 21.5, BUN is 17, creatinine is 0.5, glucose is 105, lactic acid is 3.22 and 2.44. Urinalysis with negative nitrite, negative leukocyte esterase. Influenza A and B screen are negative. IMPRESSION: 1. Lactic acidosis. 2. Pneumonia. 3. Dementia. 4. Depression. 5. Bipolar disorder. 6. Hypertension. 7. Ventral hernia. RECOMMENDATIONS: Continue Rocephin. May ask for surgical consultation regarding ventral hernia. Thank you, Dr. Bhatia, for involving me in taking care of this patient. JOB# [id number]
[2018-12-04 06:45] LABS: % BASOPHILS 0.8 % (0.0-2.0); % EOSINOPHILS 0.5 % (0.0-5.0); % LYMPHOCYTES 19.5 % (20.0-50.0); % MONOCYTES 4.9 % (2.0-10.0); % NEUTROPHILS 74.3 % (40.0-80.0); BASOPHILE ABSOLUTE 0.1 Th/cumm (0-0.2); HEMATOCRIT 32.1 % (41.0-60); HEMOGLOBIN 10.5 gm/dL (12-16); LYMPHOCYTE ABSOLUTE 1.6 Th/cmm (1.5-3.0); MEAN CELL VOLUME 90.1 fl (81-100); MEAN CORPUSCULAR HEMOGLOBIN 29.5 pg (27.0-31.0); MEAN CORPUSCULAR HGB CONC 32.8 pg (28.0-36.0); MONOCYTE ABSOLUTE 0.4 Th/cmm (0.3-1.0); NEUTROPHILE ABSOLUTE 6.3 Th/cmm (1.8-8.0); PLATELET COUNT 276 Th/cmm (150-400); RED BLOOD COUNT 3.56 Mil/cmm (3.80-5.20); RED CELL DISTRIBUTION WIDTH 14.1 % (11.5-20.0); WHITE BLOOD COUNT 8.4 Th/cmm (4.8-10.8)
[2018-12-04 06:58] LABS: ALB/GLOB RATIO 0.9 (1.0-1.8); ALKALINE PHOSPHATASE 54 U/L (34-104); ANION GAP 12.5 (7.0-16.0); BILIRUBIN,TOTAL 0.6 mg/dL (0.3-1.0); BUN - UREA NITROGEN 13 mg/dL (7-25); CALCIUM SERUM 8.7 mg/dL (8.6-10.3); CARBON DIOXIDE 23.3 mEq/L (21.0-31.0); CHLORIDE 103 mEq/L (98-107); CREATININE - SERUM 0.6 mg/dL (0.6-1.2); GLUCOSE 146 mg/dL (70-105); POTASSIUM SERUM 3.8 mEq/L (3.5-5.1); SGOT 23 U/L (13-39); SGPT/ALT 15 U/L (7-52); SODIUM SERUM 135 mEq/L (136-145); TOTAL PROTEIN,SERUM 6.5 gm/dL (6.0-8.3)
[2018-12-04] MEDS: cefTRIAXone 1 GM in Sodium Chloride 0.9% 50 ML IV SCH (17:13)
[2018-12-04] MEDS ORDERED: Magnesium Hydroxide (MOM) 30 mL UDC PO PRN (18:15)
[2018-12-04] MEDS ORDERED: Maalox 30 mL Cup PO PRN (18:15)
--- NOTE | 2018-12-04 19:05 | History & Physical ---
ADMIT DATE: 12/04/2018 CHIEF COMPLAINT: Generalized weakness. HISTORY OF PRESENT ILLNESS: This is an 87-year-old female who is a senior care resident who has a 3-day history of increasing weakness as well as confusion. No reports of any fevers at the senior care. For further management, the patient is now admitted. In the ER, the patient was noted with elevated lactic acid, sepsis protocol was initiated. PAST MEDICAL HISTORY: Dementia, PUD, GERD, hypertension. ALLERGIES: No drug allergies. SOCIAL HISTORY: The patient is a senior care resident, requiring 24-hour nursing care. FAMILY HISTORY: Noncontributory. REVIEW OF SYSTEMS: GENERAL: The patient complains of weakness. CARDIOVASCULAR: Denies any chest pain. RESPIRATORY: Denies shortness of breath. GASTROINTESTINAL: Denies nausea, vomiting, abdominal pain. GENITOURINARY: Denies increased frequency. NEUROLOGIC: No headaches, seizures, or syncope. All systems are reviewed and are negative. PHYSICAL EXAMINATION: GENERAL: Elderly female, appears weak, awake, alert, in no apparent distress. VITAL SIGNS: Temperature 97.7, heart rate 81, blood pressure 129/45, respirations 18, O2 94%. HEAD: Normocephalic; atraumatic. NECK: Supple. No mass. LUNGS: Clear bilaterally. HEART: Regular rate and rhythm. ABDOMEN: Soft, nontender. EXTREMITIES: No edema noted. LABORATORY DATA: WBC 8.4, H and H 10.5 and 32.1, platelet of 276. Sodium 135, potassium 3.8, chloride 103, BUN 0.6. Whole lactic acid of 2.44. Albumin at 3.0. DIAGNOSTICS: The patient had a chest x-ray done, impression is chronic lung changes with no focal consolidation identified. Borderline prominent heart with arthrosclerosis. ASSESSMENT: Lactic acidosis, rule out sepsis, blood culture positive for Gram-positive cocci, dementia, bipolar disorder, hypertension, ventral hernia, microcytic anemia, hyponatremia, moderate protein-calorie malnutrition. PLAN: The patient to be admitted to the med/surg unit. We will get Infectious Disease on the case. Vancomycin and Rocephin to continue. Followup labs for tomorrow morning. Aspiration precautions. We will continue to monitor this patient. JOB# [id number]
[2018-12-04] MEDS: Atorvastatin Calcium 10 MG TAB PO SCH (21:31)
[2018-12-04] MEDS: Dicyclomine 10 mg Cap PO SCH (21:31)
[2018-12-05 06:19] LABS: HEMATOCRIT 30.1 % (41.0-60); HEMOGLOBIN 10.1 gm/dL (12-16); MEAN CELL VOLUME 88.6 fl (81-100); MEAN CORPUSCULAR HEMOGLOBIN 29.8 pg (27.0-31.0); MEAN CORPUSCULAR HGB CONC 33.6 pg (28.0-36.0); PLATELET COUNT 251 Th/cmm (150-400); RED BLOOD COUNT 3.39 Mil/cmm (3.80-5.20); WHITE BLOOD COUNT 7.7 Th/cmm (4.8-10.8)
[2018-12-05 06:44] LABS: ANION GAP 12.9 (7.0-16.0); BUN - UREA NITROGEN 11 mg/dL (7-25); CALCIUM SERUM 8.6 mg/dL (8.6-10.3); CARBON DIOXIDE 24.2 mEq/L (21.0-31.0); CHLORIDE 106 mEq/L (98-107); CREATININE - SERUM 0.6 mg/dL (0.6-1.2); GLUCOSE 129 mg/dL (70-105); POTASSIUM SERUM 4.1 mEq/L (3.5-5.1); SODIUM SERUM 139 mEq/L (136-145)
[2018-12-05 07:41] LABS: MEAN PLATELET VOLUME 8.3 fl
[2018-12-05] MEDS: Pantoprazole 40 mg EC Tab PO SCH (08:22)
[2018-12-05] MEDS: Multivitamin w/ Minerals Tab PO SCH (08:22)
[2018-12-05] MEDS: Calcium Carb/Vit D 500 mg/200 U Tab PO SCH (08:23)
[2018-12-05] MEDS: Dicyclomine 10 mg Cap PO SCH ×4 (08:24→20:47)
[2018-12-05] MEDS: Lactobacillus Rhamnosus GG 15 Billion CFU CAP.SPRINK PO SCH (08:24)
[2018-12-05 08:29] LABS: BAND NEUTROPHILE 0 % (0-10); BASOPHIL 0 % (0-3); EOSINOPHIL 2 % (0-5); LYMPHOCYTE 26 % (20-50); MONOCYTE 6 % (2-10); NEUTROPHILS 66 % (40-80); PLATELET ESTIMATE ADEQUATE (NORMAL)
--- NOTE | 2018-12-05 08:34 | Consultation ---
DATE OF CONSULTATION: 12/05/2018 PATIENT'S AGE: 87. SEX: Female. PHYSICIAN: Dr. Bhatia. JDE DEVELOPER: Dr. Santiago. TYPE OF THE REPORT: Psychiatric consult. REASON FOR THE CONSULT: Confusion and agitation. HISTORY OF PRESENT ILLNESS: The patient is an 87-year-old female with history of dementia. The patient was admitted to the hospital with generalized weakness. The patient also has been confused. She has not been able to follow directions. Chart reviewed and the patient interviewed and I talks with her in [place] language, which I do speak. The patient is confused and she kept pointing out with her hand, but at the same time indicated that she needs help and she is kind of depressed. She also was mentioning people's names that she did not know who are those people when I asked her about specifically to mention what the relationship with them. Also, at times she seems to be very depressed and almost tearful. The patient was calmer during my interview and she was not agitated. PAST PSYCHIATRIC HISTORY: The patient seems to have history of depression and dementia. The patient is taking Seroquel and Namenda. PAST MEDICAL HISTORY: The patient has history of peptic ulcer disease, hypertension, and gastroesophageal reflux disease. SOCIAL HISTORY: The patient lives in [facility]. No known alcohol or drug use. ALLERGIES: No known allergies. MENTAL STATUS EXAM: The patient appears her stated age. Confused. Anxious. Flat affect. Restless. Disorganized thoughts. The patient did not answer questions regarding hallucinations or delusions, but she seems to be actively responding. The patient is not suicidal or homicidal. The patient is alert, but seems to be disoriented to time, place, person, and situation. Impaired immediate, recent and remote memories. Poor insight and poor judgment. ASSESSMENT: PRIMARY DIAGNOSIS: Depressive mood disorder, unspecified, with psychotic features. SECONDARY DIAGNOSIS: Dementia, moderate to severe. TREATMENT PLAN: We will monitor the patient's behavior closely. Also, start the patient on Lexapro and will adjust the dose. Also, we will adjust the dose. Thanks to Dr. Bhatia and we will follow up with you. JOB# [id number]
[2018-12-05] MEDS: VERAPAMIL HCL 180 MG PO SCH (10:07)
[2018-12-05] MEDS: D5-0.45NS 1,000 ML IV SCH (13:29)
--- NOTE | 2018-12-05 13:39 | Infectious Disease Prog Note ---
Infectious Disease Subjective - Review of Systems Service Date: 12/05/18 Subjective: There is no new change. blood culture grew GPC x 2 sets. Infectious Disease Objective - Results Result Diagrams: 12/05/18 04:50 12/05/18 04:50 Recent Labs: Laboratory Last Values WBC 7.7 Th/cmm (4.8-10.8) 12/05/18 04:50 RBC 3.39 Mil/cmm (3.80-5.20) L 12/05/18 04:50 Hgb 10.1 gm/dL (12-16) L 12/05/18 04:50 Hct 30.1 % (41.0-60) L 12/05/18 04:50 MCV 88.6 fl (81-100) 12/05/18 04:50 MCH 29.8 pg (27.0-31.0) 12/05/18 04:50 MCHC Differential 33.6 pg (28.0-36.0) 12/05/18 04:50 RDW 14.0 % (11.5-20.0) 12/05/18 04:50 Plt Count 251 Th/cmm (150-400) 12/05/18 04:50 MPV 8.3 fl 12/05/18 04:50 Add Manual Diff YES 12/05/18 04:50 Neutrophils % NUT PROCESS HELPER 12/05/18 04:50 Band Neutrophils % 0 % (0-10) 12/05/18 04:50 Lymphocytes % NUT PROCESS HELPER 12/05/18 04:50 Monocytes % NUT PROCESS HELPER 12/05/18 04:50 Eosinophils % NUT PROCESS HELPER 12/05/18 04:50 Basophils % NUT PROCESS HELPER 12/05/18 04:50 Neutrophils (Manual) 66 % (40-80) 12/05/18 04:50 Lymphocytes 26 % (20-50) 12/05/18 04:50 Monocytes 6 % (2-10) 12/05/18 04:50 Eosinophils 2 % (0-5) 12/05/18 04:50 Basophils 0 % (0-3) 12/05/18 04:50 Platelet Estimate ADEQUATE (NORMAL) 12/05/18 04:50 PT 11.6 SECONDS (9.5-11.5) H 12/03/18 13:20 INR 1.13 (0.5-1.4) 12/03/18 13:20 PTT (Actin FS) 30.1 SECONDS (26.0-38.0) 12/03/18 13:20 Sodium 139 mEq/L (136-145) 12/05/18 04:50 Potassium 4.1 mEq/L (3.5-5.1) 12/05/18 04:50 Chloride 106 mEq/L (98-107) 12/05/18 04:50 Carbon Dioxide 24.2 mEq/L (21.0-31.0) 12/05/18 04:50 Anion Gap 12.9 (7.0-16.0) 12/05/18 04:50 BUN 11 mg/dL (7-25) 12/05/18 04:50 Creatinine 0.6 mg/dL (0.6-1.2) 12/05/18 04:50 Est GFR ( Amer) TNP 12/05/18 04:50 Est GFR (Non-Af Amer) TNP 12/05/18 04:50 BUN/Creatinine Ratio 18.3 12/05/18 04:50 Glucose 129 mg/dL (70-105) H 12/05/18 04:50 Whole Bld Lactic Acid 2.44 mmol/L (0.60-1.99) H* 12/03/18 15:19 Calcium 8.6 mg/dL (8.6-10.3) 12/05/18 04:50 Total Bilirubin 0.6 mg/dL (0.3-1.0) 12/04/18 05:25 AST 23 U/L (13-39) 12/04/18 05:25 ALT 15 U/L (7-52) 12/04/18 05:25 Alkaline Phosphatase 54 U/L (34-104) 12/04/18 05:25 Creatine Kinase 33 U/L (30-223) 12/03/18 13:20 Troponin I 0.01 ng/mL (0.01-0.05) 12/03/18 13:20 Total Protein 6.5 gm/dL (6.0-8.3) 12/04/18 05:25 Albumin 3.0 gm/dL (3.7-5.3) L 12/04/18 05:25 Globulin 3.5 gm/dL 12/04/18 05:25 Albumin/Globulin Ratio 0.9 (1.0-1.8) L 12/04/18 05:25 Amylase 46 U/L (29-103) 12/03/18 13:20 Lipase 15 U/L (11-82) 12/03/18 13:20 TSH 1.65 uIU/ml (0.34-5.60) 12/03/18 13:25 Urine Source MIDSTREAM 12/03/18 14:26 Urine Color YELLOW 12/03/18 14:26 Urine Clarity CLEAR (CLEAR) 12/03/18 14:26 Urine pH 7.5 (4.6 - 8.0) 12/03/18 14:26 Ur Specific [place] 1.015 (1.005-1.030) 12/03/18 14:26 Urine Protein NEGATIVE mg/dL (NEGATIVE) 12/03/18 14:26 Urine Glucose (UA) NEGATIVE mg/dL (NEGATIVE) 12/03/18 14:26 Urine Ketones NEGATIVE mg/dL (NEGATIVE) 12/03/18 14:26 Urine Blood NEGATIVE (NEGATIVE) 12/03/18 14:26 Urine Nitrate NEGATIVE (NEGATIVE) 12/03/18 14:26 Urine Bilirubin NEGATIVE (NEGATIVE) 12/03/18 14:26 Urine Urobilinogen 2.0 E.U./dL (0.2 - 1.0) 12/03/18 14:26 Ur Leukocyte Esterase NEGATIVE (NEGATIVE) 12/03/18 14:26 Urine RBC 2-5 /hpf (0-5) 12/03/18 14:26 Urine WBC 0-2 /hpf (0-5) 12/03/18 14:26 Ur Epithelial Cells FEW /lpf (FEW) 12/03/18 14:26 Amorphous Sediment FEW PHOSPHATES (NONE SEEN) 12/03/18 14:26 Urine Bacteria FEW /hpf (NONE SEEN) 12/03/18 14:26 Influenza A (Rapid) NEG FOR INF A 12/03/18 16:25 Influenza B (Rapid) NEG FOR INF B 12/03/18 16:25 - Physical Exam Vitals and I&O: Vital Signs Temp 98.2 F 12/05/18 12:09 Pulse 75 12/05/18 12:09 Resp 18 12/05/18 12:09 BP 150/52 12/05/18 12:09 Pulse Ox 97 12/05/18 12:09 Intake & Output 02/12/05/18 12/05/18 18:59 06:59 18:59 Weight (lbs) 61.235 kg 61.235 kg Other: # Voids 2 # Bowel Movements 2 Weight Source Bedscale Bedscale Active Medications: Current Medications Acetaminophen (Tylenol) 650 mg PO Q6H PRN PRN Reason: Pain (Mild) Stop: 02/02/19 18:14 Al Hydrox/Mg Hydrox/Simethicone (Maalox) 30 ml PO Q4HR PRN PRN Reason: gi upset Stop: 02/02/19 18:14 Alendronate Sodium (Fosamax) 70 mg PO QFRI JEANETTE Stop: 02/03/19 07:29 Last Admin: 12/05/18 10:14 Dose: Not Given Ascorbic Acid (Vitamin C) 500 mg PO DAILY JEANETTE Stop: 02/03/19 08:59 Last Admin: 12/05/18 08:23 Dose: 500 mg Atorvastatin Calcium (Lipitor) 20 mg PO HS JEANETTE Stop: 02/02/19 20:59 Last Admin: 12/04/18 21:31 Dose: Not Given Calcium/Vitamin D (Oscal W/Vitamin D) 1 tab PO DAILY JEANETTE Stop: 02/03/19 08:59 Last Admin: 12/05/18 08:23 Dose: 1 tab Cyanocobalamin (Vitamin B12) 1,000 mcg PO DAILY JEANETTE Stop: 02/03/19 08:59 Last Admin: 12/05/18 08:22 Dose: 1,000 mcg Dicyclomine HCl (Bentyl) 10 mg PO TID EJANETTE Stop: 02/02/19 20:59 Last Admin: 12/05/18 08:24 Dose: 10 mg Docusate Sodium (Colace) 100 mg PO DAILY JEANETTE Stop: 02/03/19 08:59 Last Admin: 12/05/18 08:23 Dose: 100 mg Escitalopram Oxalate (Lexapro) 5 mg PO DAILY [facility]; Protocol Stop: 02/03/19 08:59 Glimepiride (Amaryl) 1 mg PO QDAC JEANETTE Stop: 02/03/19 07:29 Last Admin: 12/05/18 08:24 Dose: 1 mg Ceftriaxone Sodium 1 gm/ (Sodium Chloride) 50 mls @ 100 mls/hr IV Q24HR JEANETTE Stop: 02/01/19 15:59 Last Admin: 12/04/18 17:13 Dose: 100 mls/hr Dextrose/Sodium Chloride (D5-0.45ns) 1,000 mls @ 75 mls/hr IV .[id number] [facility] Stop: 02/01/19 15:56 Last Admin: 12/03/18 16:20 Dose: 75 mls/hr Vancomycin HCl 1 gm/ Sodium (Chloride) 250 mls @ 165 mls/hr IV Q24H JEANETTE Stop: 02/02/19 17:59 Last Admin: 12/04/18 17:41 Dose: 165 mls/hr Ibuprofen (Advil) 200 mg PO Q12H PRN PRN Reason: Pain (Mild) Lactobacillus Rhamnosus (Culturelle 15b) 1 each PO DAILY [facility] Stop: 02/03/19 08:59 Last Admin: 12/05/18 08:24 Dose: 1 each Loperamide HCl (Imodium) 2 mg PO Q8H PRN PRN Reason: Diarrhea Stop: 02/02/19 18:14 Loratadine (Claritin) 10 mg PO DAILY [facility] Stop: 02/03/19 08:59 Last Admin: 12/05/18 08:22 Dose: 10 mg Magnesium Hydroxide (Milk Of Magnesia) 30 ml PO HS PRN PRN Reason: Constipation Stop: 02/02/19 18:14 Memantine (Namenda) 5 mg PO BID [facility] Stop: 02/03/19 08:59 Last Admin: 12/05/18 08:58 Dose: 5 mg Miscellaneous (Vancomycin Iv Per Pharmacy) 1 ea [facility] PRN PRN PRN Reason: PROTOCOL Stop: 02/02/19 16:19 Oxybutynin Chloride (Ditropan) 5 mg PO DAILY [facility] Stop: 02/03/19 08:59 Last Admin: 12/05/18 08:23 Dose: 5 mg Pantoprazole Sodium (Protonix) 40 mg PO QDAC [facility] Stop: 02/03/19 07:29 Last Admin: 12/05/18 08:22 Dose: 40 mg Quetiapine Fumarate (Seroquel) 12.5 mg PO BID [facility]; Protocol Stop: 02/03/19 08:59 Tramadol HCl (Ultram) 50 mg PO Q12H PRN PRN Reason: Pain (Moderate) Stop: 02/02/19 18:14 Verapamil HCl (Isoptin Sr) 180 mg PO DAILY [facility] Stop: 02/03/19 08:59 Last Admin: 12/05/18 10:07 Dose: Not Given General: no acute distress, well developed, well nourished HEENT: atraumatic, normocephalic, PERRLA, EOMI Neck: supple, no thyromegaly, no lymphadenopathy Cardiovascular: S1S2, regular Lungs: clear to auscultation bilaterally, clear to percussion, crackles Abdomen: soft, no tender, no distended, no mass Extremities: no cyanosis, no clubbing, no edema Neurological: awake, alert, oriented Skin: intact Infectious Disease Assmt/Plan - Assessment Assessment: 1. CN staph bacteremia.Sepsis. 2. Pneumonia. 3. Bipolar d/o. 4. Dementia. 5. Depression. 6/ Ovarian CA, - Plan Plan: Continue vanco IV follow up blood c/s. Continue rocephin. Echo. Nutritional Asmnt/Malnutr-PDOC - Dietary Evaluation Malnutrition Findings (Please click <Entered> for more info): Nutritional Asmnt/Malnutrition Start: 12/04/18 15: 33 Text: Status: Complete Freq: Protocol: Document 12/04/18 15:33 LCHENG (Rec: 12/04/18 15:39 LCHENG [email or web address]) Nutritional Asmnt/Malnutrition Patient General Information Nutritional Screening High Risk Diagnosis sepsis Pertinent Medical Hx/Surgical Hx HTN, PUD/GERD, dementia, depression, bipolar Subjective Information Pt seen sleeping in bed at time of visit. Per nurse note, Pt is AO x 1. PO intake 50% so far, and breakfast refused this morning per EMR. Current Diet Order/ Nutrition [facility] Pertinent Medications D5-0.45ns Pertinent Labs 12/04 Na 135, Glucose 146, alb 3.0 Nutritional Hx/Data Height 1.47 m Height (Calculated Centimeters) 147.3 Current Weight (lbs) 61.235 kg Weight (Calculated Kilograms) 61.2 Weight (Calculated Grams) 92346.0 [place] Body Weight 96 Body Mass Index (BMI) 28.2 Weight Status Overweight GI Symptoms GI Symptoms None Last BM 12/04 Difficult in: None Skin Integrity/Comment: lump on upper abdomen and redness on sacral area Estimated Nutritional Goals BEE in Kcals: Using Current wt Calories/Kcals/Kg 25-30 Kcals Calculated 9699-0436 Protein: Using Current wt Protein g/k-1.2 Protein Calculated 61-73 Fluid: ml 1525-1830ml (1ml/kcal) Nutritional Problem 1. Problem Problem increased nutritional needs Etiology increased metabolic demand Signs/Symptoms: sepsis Malnutrition Alert Is there a minimum of two criteria No selected? Query Text:Check all the applicable criteria. A minimum of two criteria are recommended for diagnosis of either severe or non-severe malnutrition. Malnutrition Related to Morbid Obesity Malnutrition related to morbid obesity No Intervention/Recommendation Comments 1. Continue with [facility] diet as ordered. If PO intake continue low < 50%, consider adding GLucerna shake TID for extra kcal and protein. 2. Monitor PO intake, wt, labs and skin integrity 3. F/U as high risk in 2-3 days Expected Outcomes/Goals Expected Outcomes/Goals 1. PO intake to meet at least 75% of nutritional needs. 2. Wt stability, skin to remain intact, labs to approach WNL.
[2018-12-05] MEDS: cefTRIAXone 1 GM in Sodium Chloride 0.9% 50 ML IV SCH (15:22)
--- NOTE | 2018-12-05 17:01 | Internal Medicine Prog Note ---
Internal Medicine Subjective - Subjective Service Date: 12/05/18 Patient seen and examined:: chart reviewed Patient is:: awake, verbal Patient Complaints of:: cough, other (ventral hernia.) Per staff patient has:: no adverse event, no episodes of fall Internal Medicine Objective - Results Result Diagrams: 12/05/18 04:50 12/05/18 04:50 Recent Labs: Laboratory Last Values WBC 7.7 Th/cmm (4.8-10.8) 12/05/18 04:50 RBC 3.39 Mil/cmm (3.80-5.20) L 12/05/18 04:50 Hgb 10.1 gm/dL (12-16) L 12/05/18 04:50 Hct 30.1 % (41.0-60) L 12/05/18 04:50 MCV 88.6 fl (81-100) 12/05/18 04:50 MCH 29.8 pg (27.0-31.0) 12/05/18 04:50 MCHC Differential 33.6 pg (28.0-36.0) 12/05/18 04:50 RDW 14.0 % (11.5-20.0) 12/05/18 04:50 Plt Count 251 Th/cmm (150-400) 12/05/18 04:50 MPV 8.3 fl 12/05/18 04:50 Add Manual Diff YES 12/05/18 04:50 Neutrophils % YEAST WASHER 12/05/18 04:50 Band Neutrophils % 0 % (0-10) 12/05/18 04:50 Lymphocytes % YEAST WASHER 12/05/18 04:50 Monocytes % YEAST WASHER 12/05/18 04:50 Eosinophils % YEAST WASHER 12/05/18 04:50 Basophils % YEAST WASHER 12/05/18 04:50 Neutrophils (Manual) 66 % (40-80) 12/05/18 04:50 Lymphocytes 26 % (20-50) 12/05/18 04:50 Monocytes 6 % (2-10) 12/05/18 04:50 Eosinophils 2 % (0-5) 12/05/18 04:50 Basophils 0 % (0-3) 12/05/18 04:50 Platelet Estimate ADEQUATE (NORMAL) 12/05/18 04:50 PT 11.6 SECONDS (9.5-11.5) H 12/03/18 13:20 INR 1.13 (0.5-1.4) 12/03/18 13:20 PTT (Actin FS) 30.1 SECONDS (26.0-38.0) 12/03/18 13:20 Sodium 139 mEq/L (136-145) 12/05/18 04:50 Potassium 4.1 mEq/L (3.5-5.1) 12/05/18 04:50 Chloride 106 mEq/L (98-107) 12/05/18 04:50 Carbon Dioxide 24.2 mEq/L (21.0-31.0) 12/05/18 04:50 Anion Gap 12.9 (7.0-16.0) 12/05/18 04:50 BUN 11 mg/dL (7-25) 12/05/18 04:50 Creatinine 0.6 mg/dL (0.6-1.2) 12/05/18 04:50 Est GFR ( Amer) TNP 12/05/18 04:50 Est GFR (Non-Af Amer) TNP 12/05/18 04:50 BUN/Creatinine Ratio 18.3 12/05/18 04:50 Glucose 129 mg/dL (70-105) H 12/05/18 04:50 Whole Bld Lactic Acid 2.44 mmol/L (0.60-1.99) H* 12/03/18 15:19 Calcium 8.6 mg/dL (8.6-10.3) 12/05/18 04:50 Total Bilirubin 0.6 mg/dL (0.3-1.0) 12/04/18 05:25 AST 23 U/L (13-39) 12/04/18 05:25 ALT 15 U/L (7-52) 12/04/18 05:25 Alkaline Phosphatase 54 U/L (34-104) 12/04/18 05:25 Creatine Kinase 33 U/L (30-223) 12/03/18 13:20 Troponin I 0.01 ng/mL (0.01-0.05) 12/03/18 13:20 Total Protein 6.5 gm/dL (6.0-8.3) 12/04/18 05:25 Albumin 3.0 gm/dL (3.7-5.3) L 12/04/18 05:25 Globulin 3.5 gm/dL 12/04/18 05:25 Albumin/Globulin Ratio 0.9 (1.0-1.8) L 12/04/18 05:25 Amylase 46 U/L (29-103) 12/03/18 13:20 Lipase 15 U/L (11-82) 12/03/18 13:20 TSH 1.65 uIU/ml (0.34-5.60) 12/03/18 13:25 Urine Source MIDSTREAM 12/03/18 14:26 Urine Color YELLOW 12/03/18 14:26 Urine Clarity CLEAR (CLEAR) 12/03/18 14:26 Urine pH 7.5 (4.6 - 8.0) 12/03/18 14:26 Ur Specific [place] 1.015 (1.005-1.030) 12/03/18 14:26 Urine Protein NEGATIVE mg/dL (NEGATIVE) 12/03/18 14:26 Urine Glucose (UA) NEGATIVE mg/dL (NEGATIVE) 12/03/18 14:26 Urine Ketones NEGATIVE mg/dL (NEGATIVE) 12/03/18 14:26 Urine Blood NEGATIVE (NEGATIVE) 12/03/18 14:26 Urine Nitrate NEGATIVE (NEGATIVE) 12/03/18 14:26 Urine Bilirubin NEGATIVE (NEGATIVE) 12/03/18 14:26 Urine Urobilinogen 2.0 E.U./dL (0.2 - 1.0) 12/03/18 14:26 Ur Leukocyte Esterase NEGATIVE (NEGATIVE) 12/03/18 14:26 Urine RBC 2-5 /hpf (0-5) 12/03/18 14:26 Urine WBC 0-2 /hpf (0-5) 12/03/18 14:26 Ur Epithelial Cells FEW /lpf (FEW) 12/03/18 14:26 Amorphous Sediment FEW PHOSPHATES (NONE SEEN) 12/03/18 14:26 Urine Bacteria FEW /hpf (NONE SEEN) 12/03/18 14:26 Influenza A (Rapid) NEG FOR INF A 12/03/18 16:25 Influenza B (Rapid) NEG FOR INF B 12/03/18 16:25 - Physical Exam Vitals and I&O: Vital Signs Temp 98.4 F 12/05/18 15:55 Pulse 70 12/05/18 15:55 Resp 18 12/05/18 15:55 BP 137/50 12/05/18 15:55 Pulse Ox 93 12/05/18 15:55 Intake & Output 12/04/18 12/05/18 12/05/18 18:59 06:59 18:59 Intake Total 50 Balance 50 Weight (lbs) 61.235 kg 61.235 kg Intake: Intake, IV Amount 50 [id number] 1 gm In 50 Sodium Chloride 0.9% 50 ml @ 100 mls/hr IV Q24HR [facility] Rx#:[id number] Other: # Voids 2 # Bowel Movements 2 Weight Source Bedscale Bedscale Active Medications: Current Medications Acetaminophen (Tylenol) 650 mg PO Q6H PRN PRN Reason: Pain (Mild) Stop: 02/02/19 18:14 Al Hydrox/Mg Hydrox/Simethicone (Maalox) 30 ml PO Q4HR PRN PRN Reason: gi upset Stop: 02/02/19 18:14 Alendronate Sodium (Fosamax) 70 mg PO QFRI JEANETTE Stop: 02/03/19 07:29 Last Admin: 12/05/18 10:14 Dose: Not Given Ascorbic Acid (Vitamin C) 500 mg PO DAILY [facility] Stop: 02/03/19 08:59 Last Admin: 12/05/18 08:23 Dose: 500 mg Atorvastatin Calcium (Lipitor) 20 mg PO HS [facility] Stop: 02/02/19 20:59 Last Admin: 12/04/18 21:31 Dose: Not Given Calcium/Vitamin D (Oscal W/Vitamin D) 1 tab PO DAILY JEANETTE Stop: 02/03/19 08:59 Last Admin: 12/05/18 08:23 Dose: 1 tab Cyanocobalamin (Vitamin B12) 1,000 mcg PO DAILY JEANETTE Stop: 02/03/19 08:59 Last Admin: 12/05/18 08:22 Dose: 1,000 mcg Dicyclomine HCl (Bentyl) 10 mg PO TID [facility] Stop: 02/02/19 20:59 Last Admin: 12/05/18 13:37 Dose: Not Given Docusate Sodium (Colace) 100 mg PO DAILY [facility] Stop: 02/03/19 08:59 Last Admin: 12/05/18 08:23 Dose: 100 mg Escitalopram Oxalate (Lexapro) 5 mg PO DAILY [facility]; Protocol Stop: 02/03/19 08:59 Glimepiride (Amaryl) 1 mg PO QDAC [facility] Stop: 02/03/19 07:29 Last Admin: 12/05/18 08:24 Dose: 1 mg Ceftriaxone Sodium 1 gm/ (Sodium Chloride) 50 mls @ 100 mls/hr IV Q24HR JEANETTE Stop: 02/01/19 15:59 Last Admin: 12/05/18 15:22 Dose: 100 mls/hr Dextrose/Sodium Chloride (D5-0.45ns) 1,000 mls @ 75 mls/hr IV .[id number] JEANETTE Stop: 02/01/19 15:56 Last Admin: 12/05/18 13:29 Dose: 75 mls/hr Vancomycin HCl 1 gm/ Sodium (Chloride) 250 mls @ 165 mls/hr IV Q24H [facility] Stop: 02/02/19 17:59 Last Admin: 12/04/18 17:41 Dose: 165 mls/hr Ibuprofen (Advil) 200 mg PO Q12H PRN PRN Reason: Pain (Mild) Lactobacillus Rhamnosus (Culturelle 15b) 1 each PO DAILY [facility] Stop: 02/03/19 08:59 Last Admin: 12/05/18 08:24 Dose: 1 each Loperamide HCl (Imodium) 2 mg PO Q8H PRN PRN Reason: Diarrhea Stop: 02/02/19 18:14 Loratadine (Claritin) 10 mg PO DAILY [facility] Stop: 02/03/19 08:59 Last Admin: 12/05/18 08:22 Dose: 10 mg Magnesium Hydroxide (Milk Of Magnesia) 30 ml PO HS PRN PRN Reason: Constipation Stop: 02/02/19 18:14 Memantine (Namenda) 5 mg PO BID [facility] Stop: 02/03/19 08:59 Last Admin: 12/05/18 16:51 Dose: Not Given Miscellaneous (Vancomycin Iv Per Pharmacy) 1 ea [facility] PRN PRN PRN Reason: PROTOCOL Stop: 02/02/19 16:19 Oxybutynin Chloride (Ditropan) 5 mg PO DAILY [facility] Stop: 02/03/19 08:59 Last Admin: 12/05/18 08:23 Dose: 5 mg Pantoprazole Sodium (Protonix) 40 mg PO QDAC JEANETTE Stop: 02/03/19 07:29 Last Admin: 12/05/18 08:22 Dose: 40 mg Quetiapine Fumarate (Seroquel) 12.5 mg PO BID [facility]; Protocol Stop: 02/03/19 08:59 Tramadol HCl (Ultram) 50 mg PO Q12H PRN PRN Reason: Pain (Moderate) Stop: 02/02/19 18:14 Verapamil HCl (Isoptin Sr) 180 mg PO DAILY [facility] Stop: 02/03/19 08:59 Last Admin: 12/05/18 10:07 Dose: Not Given General: weak, lethargic, demented HEENT: NC/AT, PERRLA Neck: Supple, No JVD Lungs: CTAB Cardiovascular: RRR, Normal S1 Abdomen: soft, non-tender Extremities: other (Increased general weakness.) Neurological: no change, lethargic Internal Medicine Assmt/Plan - Assessment Assessment: Dementia PUD Gerd Htn Increased general weakness Sepsis Pneumonia Depression Ovarian CA - Plan Plan: Continue present meds as directed Monitor labs, chest x-ray, sputum ID followup Psych consult with psych management Monitor vitals, Continue BP meds as directed Aspiration precaution Fall precaution Safety precaution Continue present treatment Nutritional Asmnt/Malnutr-PDOC - Dietary Evaluation Malnutrition Findings (Please click <Entered> for more info): Nutritional Asmnt/Malnutrition Start: 12/04/18 15: 33 Text: Status: Complete Freq: Protocol: Document 12/04/18 15:33 LCHENG (Rec: 12/04/18 15:39 LCHENG [id number]) Nutritional Asmnt/Malnutrition Patient General Information Nutritional Screening High Risk Diagnosis sepsis Pertinent Medical Hx/Surgical Hx HTN, PUD/GERD, dementia, depression, bipolar Subjective Information Pt seen sleeping in bed at time of visit. Per nurse note, Pt is AO x 1. PO intake 50% so far, and breakfast refused this morning per EMR. Current Diet Order/ Nutrition Support [facility] Pertinent Medications D5-0.45ns Pertinent Labs 12/04 Na 135, Glucose 146, alb 3.0 Nutritional Hx/Data Height 1.47 m Height (Calculated Centimeters) 147.3 Current Weight (lbs) 61.235 kg Weight (Calculated Kilograms) 61.2 Weight (Calculated Grams) 96314.0 [place] Body Weight 96 Body Mass Index (BMI) 28.2 Weight Status Overweight GI Symptoms GI Symptoms None Last BM 12/04 Difficult in: None Skin Integrity/Comment: lump on upper abdomen and redness on sacral area Estimated Nutritional Goals BEE in Kcals: Using Current wt Calories/Kcals/Kg 25-30 Kcals Calculated 3865-1470 Protein: Using Current wt Protein g/k-1.2 Protein Calculated 61-73 Fluid: ml 1525-1830ml (1ml/kcal) Nutritional Problem 1. Problem Problem increased nutritional needs Etiology increased metabolic demand Signs/Symptoms: sepsis Malnutrition Alert Is there a minimum of two criteria No selected? Query Text:Check all the applicable criteria. A minimum of two criteria are recommended for diagnosis of either severe or non-severe malnutrition. Malnutrition Related to Morbid Obesity Malnutrition related to morbid obesity No Intervention/Recommendation Comments 1. Continue with [facility] diet as ordered. If PO intake continue low < 50%, consider adding GLucerna shake TID for extra kcal and protein. 2. Monitor PO intake, wt, labs and skin integrity 3. F/U as high risk in 2-3 days Expected Outcomes/Goals Expected Outcomes/Goals 1. PO intake to meet at least 75% of nutritional needs. 2. Wt stability, skin to remain intact, labs to approach WNL.
[2018-12-05] MEDS: Atorvastatin Calcium 10 MG TAB PO SCH (20:58)
[2018-12-06] MEDS: D5-0.45NS 1,000 ML IV SCH (05:55)
[2018-12-06] MEDS: Pantoprazole 40 mg EC Tab PO SCH (06:33)
[2018-12-06] MEDS ORDERED: Escitalopram Oxalate 5 mg Tab PO SCH (09:00)
--- NOTE | 2018-12-06 09:26 | Infectious Disease Prog Note ---
Infectious Disease Subjective - Review of Systems Service Date: 12/06/18 Subjective: There is no new change. blood culture grew GPC x 2 sets. Infectious Disease Objective - Results Result Diagrams: 12/05/18 04:50 12/05/18 04:50 Recent Labs: Laboratory Last Values WBC 7.7 Th/cmm (4.8-10.8) 12/05/18 04:50 RBC 3.39 Mil/cmm (3.80-5.20) L 12/05/18 04:50 Hgb 10.1 gm/dL (12-16) L 12/05/18 04:50 Hct 30.1 % (41.0-60) L 12/05/18 04:50 MCV 88.6 fl (81-100) 12/05/18 04:50 MCH 29.8 pg (27.0-31.0) 12/05/18 04:50 MCHC Differential 33.6 pg (28.0-36.0) 12/05/18 04:50 RDW 14.0 % (11.5-20.0) 12/05/18 04:50 Plt Count 251 Th/cmm (150-400) 12/05/18 04:50 MPV 8.3 fl 12/05/18 04:50 Add Manual Diff YES 12/05/18 04:50 Neutrophils % SILICA FILTER OPERATOR 12/05/18 04:50 Band Neutrophils % 0 % (0-10) 12/05/18 04:50 Lymphocytes % SILICA FILTER OPERATOR 12/05/18 04:50 Monocytes % SILICA FILTER OPERATOR 12/05/18 04:50 Eosinophils % SILICA FILTER OPERATOR 12/05/18 04:50 Basophils % SILICA FILTER OPERATOR 12/05/18 04:50 Neutrophils (Manual) 66 % (40-80) 12/05/18 04:50 Lymphocytes 26 % (20-50) 12/05/18 04:50 Monocytes 6 % (2-10) 12/05/18 04:50 Eosinophils 2 % (0-5) 12/05/18 04:50 Basophils 0 % (0-3) 12/05/18 04:50 Platelet Estimate ADEQUATE (NORMAL) 12/05/18 04:50 PT 11.6 SECONDS (9.5-11.5) H 12/03/18 13:20 INR 1.13 (0.5-1.4) 12/03/18 13:20 PTT (Actin FS) 30.1 SECONDS (26.0-38.0) 12/03/18 13:20 Sodium 139 mEq/L (136-145) 12/05/18 04:50 Potassium 4.1 mEq/L (3.5-5.1) 12/05/18 04:50 Chloride 106 mEq/L (98-107) 12/05/18 04:50 Carbon Dioxide 24.2 mEq/L (21.0-31.0) 12/05/18 04:50 Anion Gap 12.9 (7.0-16.0) 12/05/18 04:50 BUN 11 mg/dL (7-25) 12/05/18 04:50 Creatinine 0.6 mg/dL (0.6-1.2) 12/05/18 04:50 Est GFR ( Amer) TNP 12/05/18 04:50 Est GFR (Non-Af Amer) TNP 12/05/18 04:50 BUN/Creatinine Ratio 18.3 12/05/18 04:50 Glucose 129 mg/dL (70-105) H 12/05/18 04:50 Whole Bld Lactic Acid 2.44 mmol/L (0.60-1.99) H* 12/03/18 15:19 Calcium 8.6 mg/dL (8.6-10.3) 12/05/18 04:50 Total Bilirubin 0.6 mg/dL (0.3-1.0) 12/04/18 05:25 AST 23 U/L (13-39) 12/04/18 05:25 ALT 15 U/L (7-52) 12/04/18 05:25 Alkaline Phosphatase 54 U/L (34-104) 12/04/18 05:25 Creatine Kinase 33 U/L (30-223) 12/03/18 13:20 Troponin I 0.01 ng/mL (0.01-0.05) 12/03/18 13:20 Total Protein 6.5 gm/dL (6.0-8.3) 12/04/18 05:25 Albumin 3.0 gm/dL (3.7-5.3) L 12/04/18 05:25 Globulin 3.5 gm/dL 12/04/18 05:25 Albumin/Globulin Ratio 0.9 (1.0-1.8) L 12/04/18 05:25 Amylase 46 U/L (29-103) 12/03/18 13:20 Lipase 15 U/L (11-82) 12/03/18 13:20 TSH 1.65 uIU/ml (0.34-5.60) 12/03/18 13:25 Urine Source MIDSTREAM 12/03/18 14:26 Urine Color YELLOW 12/03/18 14:26 Urine Clarity CLEAR (CLEAR) 12/03/18 14:26 Urine pH 7.5 (4.6 - 8.0) 12/03/18 14:26 Ur Specific [place] 1.015 (1.005-1.030) 12/03/18 14:26 Urine Protein NEGATIVE mg/dL (NEGATIVE) 12/03/18 14:26 Urine Glucose (UA) NEGATIVE mg/dL (NEGATIVE) 12/03/18 14:26 Urine Ketones NEGATIVE mg/dL (NEGATIVE) 12/03/18 14:26 Urine Blood NEGATIVE (NEGATIVE) 12/03/18 14:26 Urine Nitrate NEGATIVE (NEGATIVE) 12/03/18 14:26 Urine Bilirubin NEGATIVE (NEGATIVE) 12/03/18 14:26 Urine Urobilinogen 2.0 E.U./dL (0.2 - 1.0) 12/03/18 14:26 Ur Leukocyte Esterase NEGATIVE (NEGATIVE) 12/03/18 14:26 Urine RBC 2-5 /hpf (0-5) 12/03/18 14:26 Urine WBC 0-2 /hpf (0-5) 12/03/18 14:26 Ur Epithelial Cells FEW /lpf (FEW) 12/03/18 14:26 Amorphous Sediment FEW PHOSPHATES (NONE SEEN) 12/03/18 14:26 Urine Bacteria FEW /hpf (NONE SEEN) 12/03/18 14:26 Influenza A (Rapid) NEG FOR INF A 12/03/18 16:25 Influenza B (Rapid) NEG FOR INF B 12/03/18 16:25 - Physical Exam Vitals and I&O: Vital Signs Temp 97 F 12/06/18 04:18 Pulse 72 12/06/18 04:18 Resp 18 12/06/18 04:18 BP 119/45 12/06/18 04:18 Pulse Ox 97 12/06/18 04:18 Intake & Output 12/05/18 12/06/1819 18:59 06:59 18:59 Intake Total 10 1200 Balance 10 1200 Weight (lbs) 61.235 kg 61.235 kg Intake: Intake, IV Amount 1000 D5-0.45NS 1,000 ml @ 75 1000 mls/hr IV .[id number] [facility] Rx #:[id number] Oral 10 200 Other: # Voids 1 3 # Bowel Movements 0 Weight Source Bedscale Bedscale Active Medications: Current Medications Acetaminophen (Tylenol) 650 mg PO Q6H PRN PRN Reason: Pain (Mild) Stop: 02/02/19 18:14 Al Hydrox/Mg Hydrox/Simethicone (Maalox) 30 ml PO Q4HR PRN PRN Reason: gi upset Stop: 02/02/19 18:14 Alendronate Sodium (Fosamax) [address] [facility] Stop: 02/03/19 07:29 Last Admin: 12/05/18 10:14 Dose: Not Given Ascorbic Acid (Vitamin C) [address] [facility] Stop: 02/03/19 08:59 Last Admin: 12/05/18 08:23 Dose: 500 mg Atorvastatin Calcium (Lipitor) [address] [facility] Stop: 02/02/19 20:59 Last Admin: 12/05/18 20:58 Dose: Not Given Calcium/Vitamin D (Oscal W/Vitamin D) [address] [facility] Stop: 02/03/19 08:59 Last Admin: 12/05/18 08:23 Dose: 1 tab Cyanocobalamin (Vitamin B12) 1,[address] [facility] Stop: 02/03/19 08:59 Last Admin: 12/05/18 08:22 Dose: 1,000 mcg Dicyclomine HCl (Bentyl) [address] [facility] Stop: 02/02/19 20:59 Last Admin: 12/05/18 20:47 Dose: 10 mg Docusate Sodium (Colace) [address] [facility] Stop: 02/03/19 08:59 Last Admin: 12/05/18 08:23 Dose: 100 mg Escitalopram Oxalate (Lexapro) [address] [facility]; Protocol Stop: 02/04/19 08:59 Glimepiride (Amaryl) 1 mg PO QDAC JEANETTE Stop: 02/03/19 07:29 Last Admin: 12/06/18 06:33 Dose: 1 mg Ceftriaxone Sodium 1 gm/ (Sodium Chloride) 50 mls @ 100 mls/hr IV Q24HR [facility] Stop: 02/01/19 15:59 Last Admin: 12/05/18 15:22 Dose: 100 mls/hr Dextrose/Sodium Chloride (D5-0.45ns) 1,000 mls @ 75 mls/hr IV .[id number] [facility] Stop: 02/01/19 15:56 Last Admin: 12/06/18 05:55 Dose: 75 mls/hr Vancomycin HCl 1 gm/ Sodium (Chloride) 250 mls @ 165 mls/hr IV Q24H [facility] Stop: 02/02/19 17:59 Last Admin: 12/05/18 17:00 Dose: 165 mls/hr Ibuprofen (Advil) 200 mg PO Q12H PRN PRN Reason: Pain (Mild) Lactobacillus Rhamnosus (Culturelle 15b) [address] [facility] Stop: 02/03/19 08:59 Last Admin: 12/05/18 08:24 Dose: 1 each Loperamide HCl (Imodium) 2 mg PO Q8H PRN PRN Reason: Diarrhea Stop: 02/02/19 18:14 Loratadine (Claritin) [address] [facility] Stop: 02/03/19 08:59 Last Admin: 12/05/18 08:22 Dose: 10 mg Magnesium Hydroxide (Milk Of Magnesia) 30 ml PO HS PRN PRN Reason: Constipation Stop: 02/02/19 18:14 Memantine (Namenda) [address] [facility] Stop: 02/03/19 08:59 Last Admin: 12/05/18 16:51 Dose: Not Given Miscellaneous (Vancomycin Iv Per Pharmacy) 1 ea PRN PRN PRN Reason: PROTOCOL Stop: 02/02/19 16:19 Oxybutynin Chloride (Ditropan) [address] [facility] Stop: 02/03/19 08:59 Last Admin: 12/05/18 08:23 Dose: 5 mg Pantoprazole Sodium (Protonix) [address] [facility] Stop: 02/03/19 07:29 Last Admin: 12/06/18 06:33 Dose: 40 mg Quetiapine Fumarate (Seroquel) 12.[address] [facility]; Protocol Stop: 02/03/19 08:59 Tramadol HCl (Ultram) 50 mg PO Q12H PRN PRN Reason: Pain (Moderate) Stop: 02/02/19 18:14 Verapamil HCl (Isoptin Sr) 180 mg PO DAILY JE[facility]TE Stop: 02/03/19 08:59 Last Admin: 12/05/18 10:07 Dose: Not Given General: no acute distress, well developed, well nourished HEENT: atraumatic, normocephalic, PERRLA, EOMI Neck: supple, no thyromegaly Cardiovascular: S1S2, regular Lungs: clear to auscultation bilaterally, clear to percussion Abdomen: soft, no tender, no distended Extremities: no cyanosis, no clubbing, no edema Neurological: awake, alert, oriented Skin: intact Infectious Disease Assmt/Plan - Assessment Assessment: 1. CN staph bacteremia.Sepsis. 2. Pneumonia. 3. Bipolar d/o. 4. Dementia. 5. Depression. 6/ Ovarian CA, - Plan Plan: Continue vanco IV. Continue rocephin. Check the echo report then oswald segundo decision. Nutritional Asmnt/Malnutr-PDOC - Dietary Evaluation Malnutrition Findings (Please click <Entered> for more info): Nutritional Asmnt/Malnutrition Start: 12/04/18 15: 33 Text: Status: Complete Freq: Protocol: Document 12/04/18 15:33 LCHENG (Rec: 12/04/18 15:39 [email or web address] [id number]) Nutritional Asmnt/Malnutrition Patient General Information Nutritional Screening High Risk Diagnosis sepsis Pertinent Medical Hx/Surgical Hx HTN, PUD/GERD, dementia, depression, bipolar Subjective Information Pt seen sleeping in bed at time of visit. Per nurse note, Pt is AO x 1. PO intake 50% so far, and breakfast refused this morning per EMR. Current Diet Order/ Nutrition Support CCHO Pertinent Medications D5-0.45ns Pertinent Labs 12/04 Na 135, Glucose 146, alb 3.0 Nutritional Hx/Data Height 1.47 m Height (Calculated Centimeters) 147.3 Current Weight (lbs) 61.235 kg Weight (Calculated Kilograms) 61.2 Weight (Calculated Grams) 00437.0 [place] Body Weight 96 Body Mass Index (BMI) 28.2 Weight Status Overweight GI Symptoms GI Symptoms None Last BM 12/04 Difficult in: None Skin Integrity/Comment: lump on upper abdomen and redness on sacral area Estimated Nutritional Goals BEE in Kcals: Using Current wt Calories/Kcals/Kg 25-30 Kcals Calculated 5322-6680 Protein: Using Current wt Protein g/k-1.2 Protein Calculated 61-73 Fluid: ml 1525-1830ml (1ml/kcal) Nutritional Problem 1. Problem Problem increased nutritional needs Etiology increased metabolic demand Signs/Symptoms: sepsis Malnutrition Alert Is there a minimum of two criteria No selected? Query Text:Check all the applicable criteria. A minimum of two criteria are recommended for diagnosis of either severe or non-severe malnutrition. Malnutrition Related to Morbid Obesity Malnutrition related to morbid obesity No Intervention/Recommendation Comments 1. Continue with CCHO diet as ordered. If PO intake continue low < 50%, consider adding GLucerna shake TID for extra kcal and protein. 2. Monitor PO intake, wt, labs and skin integrity 3. F/U as high risk in 2-3 days Expected Outcomes/Goals Expected Outcomes/Goals 1. PO intake to meet at least 75% of nutritional needs. 2. Wt stability, skin to remain intact, labs to approach WNL.
[2018-12-06] MEDS: Lactobacillus Rhamnosus GG 15 Billion CFU CAP.SPRINK PO SCH (09:34)
[2018-12-06] MEDS: Dicyclomine 10 mg Cap PO SCH (09:34)
[2018-12-06] MEDS: Multivitamin w/ Minerals Tab PO SCH (09:34)
[2018-12-06] MEDS: Calcium Carb/Vit D 500 mg/200 U Tab PO SCH (09:35)
[2018-12-06] MEDS: VERAPAMIL HCL 180 MG PO SCH (09:37)
[2018-12-06] MEDS ORDERED: Probiotic Screen MC PRN (14:39)
--- NOTE | 2018-12-06 15:02 | Progress Notes ---
DATE: 12/06/2018 SUBJECTIVE: Case was discussed with staff of the patient, reviewed records. Covering for Dr. Santiago. This is an 87-year-old female who was admitted on 12/03/2018 because of confusion, agitation with a history of dementia. She was admitted because of generalized weakness. She has been confused, not able to follow direction. The patient continues to be confused, unable to explain herself, though I woke her language. She is unable to participate in meaningful conversation or make safe plan for self-care, at times tearful, easily agitated. The patient is on Seroquel and Namenda. Dr. Santiago added Lexapro 5 mg daily. She is on Namenda 5 mg twice a day and Seroquel 12.5 mg twice a day with no side effects, no sedation. I recommend continuing her medication. The patient to follow up with the psychiatrist upon discharge. Thank you very much for allowing me to participate in the care of this most interesting lady. JOB# [id number]
--- NOTE | 2018-12-06 18:05 | Progress Notes ---
DATE: 12/06/2018 SUBJECTIVE: The patient was seen in her room. The patient is a poor historian due to medical condition. The patient appears to be weak. Appetite is fair. Otherwise, the patient is in no acute distress. OBJECTIVE: VITAL SIGNS: Temperature 97, heart rate 72, blood pressure 180/45, respiratory rate 18, and 97% on room air. HEENT: Head is atraumatic and normocephalic. Eyes: Bilateral conjunctivae are clear. Bilateral pupils are equally round and reactive. NECK: Supple. No JVD. CARDIOVASCULAR: S1 and S2, without murmur. PULMONARY: Clear to auscultation. GASTROINTESTINAL: Soft and nontender without guarding. Positive bowel sounds. MUSCULOSKELETAL: No clubbing. No cyanosis noted. ASSESSMENT: 1. Pneumonia. 2. Dementia. 3. Hyperlipidemia. 4. Diabetes. 5. Osteoarthritis. 6. Gastroesophageal reflux disease. 7. Hypertension. PLAN: We will continue current treatment. We will continue current antibiotics and put the patient on aspiration precaution. We will monitor the patient's intake and output. Treatment plans were discussed with the patient's nurse. Treatment plans were discussed with Dr. Bhatia. JOB# [id number]
--- NOTE | 2018-12-09 15:34 | Cardiology ---
12/05/[address] Bhatia 12/05/2018. M-MODE ECHOCARDIOGRAM: Mitral valve, anterior leaflet of mitral valve shows normal excursion, EF velocity. Posterior leaflet of the mitral valve shows normal excursion. Left ventricular posterior wall shows increased thickness, normal excursion. Interventricular septum shows increased thickness, normal excursion, hypertrophy of the left ventricle, ejection fraction 67%. Left atrium normal. Aortic root shows normal dimension, normal excursion of aortic leaflets. CONCLUSION: Hypertrophy of the left ventricle, ejection fraction 67%. 2D ECHO: Long axis view showed normal sized left ventricle with hypertrophy of the left ventricle. Left atrium normal. Aortic root shows normal dimension, normal excursion of aortic leaflets. Short axis view of mitral valve normal. Short axis view of aortic valve normal. Apical four chamber view showed normal-sized left ventricle with hypertrophy of the left ventricle. Left atrium normal. Right ventricular cavity, right atrium normal, no pericardial effusion. CONCLUSION: Hypertrophy of the left ventricle, ejection fraction 67%. Doppler study shows trace mitral regurgitation, mild tricuspid regurgitation, right ventricular systolic pressure 39 mmHg. [facility]# [id number]
== END 2018-12-06 02:05 | DRG 871 ==
LOC: ER 12:19 → MSI 14:54
PROVIDERS: ADMIT Internal Medicine; ATTEND Internal Medicine
DX: A41.2 Sepsis due to unspecified staphylococcus (principal); J18.9 Pneumonia, unspecified organism; E44.0 Moderate protein-calorie malnutrition; N39.0 Urinary tract infection, site not specified; E87.1 Hypo-osmolality and hyponatremia; F03.91 Unspecified dementia, unspecified severity, with behavioral disturbance; F32.3 Major depressive disorder, single episode, severe with psychotic features; C56.9 Malignant neoplasm of unspecified ovary; I10 Essential (primary) hypertension; K43.9 Ventral hernia without obstruction or gangrene; K21.9 Gastro-esophageal reflux disease without esophagitis; E86.0 Dehydration; K27.9 Peptic ulcer, site unspecified, unspecified as acute or chronic, without hemorrhage or perforation; D50.9 Iron deficiency anemia, unspecified; M19.90 Unspecified osteoarthritis, unspecified site; Z68.28 Body mass index [BMI] 28.0-28.9, adult
CPT/HCPCS: 36415-UA; 71045-TC; 80048-TC; 80053-TC; 81001-TC; 82150-TC; 82550-TC; 83605; 83690-TC; 84443-TC; 84484-TC; 85007-TC; 85025-TC; 85610-TC; 85730-TC; 87086-90; 87804-TC; 93005; J0696; J1956; J3370; J7030; Z7610